=== PATIENT | male | born 1945 | race Caucasian/White ===

== ENCOUNTER → 2018-09-14 08:49 | Outpatient (CLI) | payer MEDICARE, SELFPAY ==
--- NOTE | 2018-09-14 | DI.MRI.S_ITS ---
PROCEDURE: MR PELIS WO/W CON INDICATIONS: PROSTATE CANCER TECHNIQUE: Noncontrast coronal T1 spin echo and STIR, sagittal T1 spin echo with fat saturation and STIR, axial T1 spin echo and T2 fast spin echo with fat saturation. After the administration of contrast, axial/sagittal/coronal T1 spin echo with fat saturation through the pelvis. COMPARISON: None. FINDINGS: Image quality: Excellent. Bones: The visualized bone marrow demonstrates normal signal on all sequences. The overlying cortex appears intact. No abnormal intraosseous enhancement. Soft tissues: No soft tissue masses are visualized. The scanned muscles demonstrate normal overall bulk and internal signal. Subcutaneous tissues appear normal as well. No abnormal soft tissue enhancement. The prostate is not enlarged. There is T1 signal heterogeneity within the periphery of the prostate transitional zone and peripheral zone, right greater than left, likely reflecting prostate biopsy through transrectal approach. No discrete prostatic mass lesion is identified. No adenopathy is found. Note is made of a moderate-sized fat containing right inguinal hernia, showing no sign of incarceration or strangulation. IMPRESSION: 1. The prostate gland is not enlarged and shows no discrete mass lesion. Presume T1 signal heterogeneity at several points along the periphery of the gland most likely representing biopsy sites. 2. No adenopathy found. No osseous metastatic disease seen. 3. Incidental finding of moderate sized fat containing right inguinal hernia, showing no sign of incarceration or strangulation. This has an axial dimension of approximately 3.7 cm and a craniocaudad dimension of 11.2 cm. Dictated by: Roberto Jimenez M.D. on 09/14/2018 at 15:25 Approved by: Roberto Jimenez M.D. on 09/14/2018 at 15:28
--- NOTE | 2018-09-14 | DI.NM.S_ITS ---
PROCEDURE: NM BONE SCAN WHOLE BODY RADIOPHARMACEUTICAL: 20.9 mCi Tc-99m MDP IV. INDICATIONS: PROSTATE CANCER TECHNIQUE: Delayed whole-body scintigrams were obtained approximately 3-4 hours after intravenous injection of radiotracer. Anterior and posterior views were acquired from vertex to feet. Additional left and right oblique views of the pelvis were obtained. COMPARISON: None. FINDINGS: No areas of relative intense radiotracer uptake identified that would be suspicious for metastatic disease. There is increased radiotracer uptake identified in the shoulders bilaterally, the cervical spine, the thoracic spine, the lumbar spine, the knees bilaterally, the ankles bilaterally in the mid feet bilaterally compatible with osteoarthritis. No areas of photopenia identified in the osseous skeleton. No abnormal soft tissue uptake. Activity in the kidneys is normal and symmetric. IMPRESSION: No evidence of osseous metastatic disease. Dictated by: Maria Elena Navarro MD, PhD on 09/14/2018 at 13:46 Approved by: Maria Elena Navarro MD, PhD on 09/14/2018 at 14:00
== END ==
PROVIDERS: PCP Family Medicine; Visit Provider Family Medicine
DX: C61 Malignant neoplasm of prostate (principal); K40.90 Unilateral inguinal hernia, without obstruction or gangrene, not specified as recurrent
CPT/HCPCS: 72197; 78306; A9503

== ENCOUNTER 2018-10-25 10:32 | Outpatient (RCR) | payer MEDICARE, SELFPAY ==
--- NOTE | 2018-10-26 11:09 | PT.OIE ---
Current Diagnoses Malignant neoplasm of prostate (10/25/18) Provider Visit Care Team Role Provider Type Jerica Munoz MD Primary Care Provider Physician Specialty: Family Practice Address: [place], [address] Email: Alhaji Deshpande MD Attending Provider Non-Staff Specialty: Urology Address: [address] [facility], [id number], [place], [address] Email: Physical Therapy Initial Evaluation PT-OP-A Visit Information Start: 10/25/18 10:44 Freq: Status: Active Protocol: Document 10/26/18 10:36 [facility] (Rec: 10/26/18 11:09 [facility] [email or web address]) Out-Patient Physical Therapy Visit Information Visit Information Visit Type Initial Evaluation Visit Note Eliel is a 73 year old male referred to PT for pre-op pelvic floor strengthening. He will undergo a robotic prostatectomy with Dr Gokul Deshpande at [facility] 11/30/18. Visit Start Time 10:45 Visit Stop Time 11:30 Total Visit Minutes 45 Visit Number 1 Evaluation Information Evaluation Date 10/25/18 PT-OP-B Current Condition Start: 10/25/18 10:44 Freq: Status: Active Protocol: Document 10/26/18 10:36 [facility] (Rec: 10/26/18 11:09 [facility] [email or web address]) Current Condition History of Current Condition Onset Date 10/13/18 Current Complaints urinary urgency, prostate cancer History of Current Condition 73 year old male diagnosed with prostate cancer and undergoing a robotic prostatectomy 11/30/18. He has been referred to PT for pre- op strengthening of his pelvic floor. He does note he has been trying to lose weight prior to the surgery and has lost approximately 10 lbs with a walking program. He also has been motivated to begin pelvic floor strengthening on his own and feels that his urgency symptoms have improved with strengthening. Treatment Goals Patient/Caregiver Goals Goals include to patient education on a home program for pelvic floor strengthening Current Functional Impairments (Reported) Functional Limitations- ADL's sleep disrupted as he is voiding 3 times per night PT-OP-F Manual Assessment Start: 10/25/18 10:44 Freq: Status: Active Protocol: Document 10/26/18 10:36 [facility] (Rec: 10/26/18 11:09 [facility] [email or web address]) Manual Assessments Other Manual Assessments Other Manual Assessments weakness of the transverse abdominal wall with valsalva with transferring from supine to sidelying PT-OP-I Pelvic Floor Start: 10/25/18 10:44 Freq: Status: Active Protocol: Document 10/26/18 10:36 [facility] (Rec: 10/26/18 11:09 [facility] [email or web address]) Pelvic Floor Assessment Contraction Ability Voluntary Contraction Moderate Voluntary Relaxation Moderate Muscle Endurance (Seconds) 5 Comments Pelvic Floor Comments needed tactile cuing for pelvic floor isolation without external gluteal or abdominal guarding. Difficulty with endurance holds of the pelvic floor musculature PT-OP-T Assessment and Plan Start: 10/25/18 10:44 Freq: Status: Active Protocol: Document 10/26/18 10:36 [facility] (Rec: 10/26/18 11:09 [facility] [email or web address]) Physical Therapy Assessment Rehab Potential Rehabilitation Potential Excellent Evaluation Complexity Number of Personal Factors/Comorbidities 0 Number of Body Systems Impaired 1-2 Clinical Presentation at Evaluation Stable Impairments Impairments Strength Tone Other Impairments prostate cancer with urinary urgency Goals One Impairment Guidance with home exercise program for pre-op pelvic floor strengthening Short Term Goal (STG) Eliel is instructed in a home program for pelvic floor strengthening and hip rotation exercises that he is able to do both pre and post operatively. STG Duration 10/25/18 Assessment Summary Assessment Eliel is a 73 year old male referred to Physical Therapy today for pre operative pelvic floor strengthening. He is scheduled for surgery November 30 at [facility]. He reports he has been walking and trying to lose weight prior to his surgery. He reports he has lost 10 lbs. He has also been motivated to begin pelvic floor strengthening on his own prior to this appointment and he notes that his urgency symptoms have decreased with the exercises. He seeks guidance with pre operative exercises and exercises he can do post surgery. He lives on [facility] and wishes to make this appointment his only one due to logistics of travel. With examination today Eliel is able to facilitate his pelvic floor in supine, standing, and sitting positions. He does have weakness of his abdominal wall and we discussed lower abdominal bracing prior to transitional movements to help decrease valsalva and downward pressure on the bladder. I had him pratice transitions such as rolling from supine to sidelying and sit to stand with pelvic floor and transverse abdominal recruitment. He was also given hip rotation exercises for improved facilitation of the pelvic floor. Eliel demonstrated good awareness of these exercises. He was given handouts with pictures of his home program and he felt comfortable with 1 PT visit. If he feels he needs any additional guidance on pelvic floor strengthening prior to surgery or post surgery I am happy to assist him. Physical Therapy Plan Frequency and Duration Frequency of Treatment 1 visit only Duration of Treatment 1 visit only Plan of Care Start Date 10/25/18 Plan of Care End Date 10/25/18 Therapeutic Interventions Therapeutic Interventions Home Exercise Program Discharge Physical Therapy Discharge Reasons Patient Request Discharge Comments The patient requested one visit for preoperative strengthening due to logistics of traveling from [facility]
--- NOTE | 2018-10-26 11:11 | PT.OPPOC ---
Current Diagnoses Malignant neoplasm of prostate (10/25/18) Provider Visit Care Team Role Provider Type Jerica Munoz MD Primary Care Provider Physician Specialty: Family Practice Address: [place], [address] Email: Alhaji Deshpande MD Attending Provider Non-Staff Specialty: Urology Address: [address] [facility], [id number], [place], [address] Email: Plan Of Care PT-OP-T Assessment and Plan Start: 10/25/18 10:44 Freq: Status: Active Protocol: Document 10/26/18 10:36 [facility] (Rec: 10/26/18 11:09 [facility] [email or web address]) Physical Therapy Assessment Rehab Potential Rehabilitation Potential Excellent Evaluation Complexity Number of Personal Factors/Comorbidities 0 Number of Body Systems Impaired 1-2 Clinical Presentation at Evaluation Stable Impairments Impairments Strength Tone Other Impairments prostate cancer with urinary urgency Goals One Impairment Guidance with home exercise program for pre-op pelvic floor strengthening Short Term Goal (STG) Eliel is instructed in a home program for pelvic floor strengthening and hip rotation exercises that he is able to do both pre and post operatively. STG Duration 10/25/18 Assessment Summary Assessment Eliel is a 73 year old male referred to Physical Therapy today for pre operative pelvic floor strengthening. He is scheduled for surgery November 30 at [facility]. He reports he has been walking and trying to lose weight prior to his surgery. He reports he has lost 10 lbs. He has also been motivated to begin pelvic floor strengthening on his own prior to this appointment and he notes that his urgency symptoms have decreased with the exercises. He seeks guidance with pre operative exercises and exercises he can do post surgery. He lives on [facility] and wishes to make this appointment his only one due to logistics of travel. With examination today Eliel is able to facilitate his pelvic floor in supine, standing, and sitting positions. He does have weakness of his abdominal wall and we discussed lower abdominal bracing prior to transitional movements to help decrease valsalva and downward pressure on the bladder. I had him practice transitions such as rolling from supine to sidelying and sit to stand with pelvic floor and transverse abdominal recruitment. He was also given hip rotation exercises for improved facilitation of the pelvic floor. Eliel demonstrated good awareness of these exercises. He was given handouts with pictures of his home program and he felt comfortable with 1 PT visit. If he feels he needs any additional guidance on pelvic floor strengthening prior to surgery or post surgery I am happy to assist him. Physical Therapy Plan Frequency and Duration Frequency of Treatment 1 visit only Duration of Treatment 1 visit only Plan of Care Start Date 10/25/18 Plan of Care End Date 10/25/18 Therapeutic Interventions Therapeutic Interventions Home Exercise Program Discharge Physical Therapy Discharge Reasons Patient Request Discharge Comments The patient requested one visit for preoperative strengthening due to logistics of traveling from [facility] Plan of Care Dates Plan of Care Start Date 10/25/18 Plan of Care End Date 10/25/18 Please Sign and Return: I have reviewed this Plan of Care and certify that the skilled therapy services above are required to meet the patient?s needs. Physician Signature Date Printed Name and Credentials Clinical Instructor Signature Printed Name and Credentials
== END 2018-10-25 13:14 | disposition home or self-care (01) ==
LOC: PHYS 10:32
PROVIDERS: PCP Family Medicine; Visit Provider Urology
DX: C61 Malignant neoplasm of prostate (principal)
CPT/HCPCS: 97110; 97161

== ENCOUNTER → 2019-04-11 08:34 | Outpatient (CLI) | payer MEDICARE, SELFPAY ==
--- NOTE | 2019-04-11 | DI.MRI.S_ITS ---
PROCEDURE: MR LUMBAR SPINE WO CON INDICATIONS: Low back pain TECHNIQUE: Noncontrast sagittal T1 spin echo and T2 fast echo, sagittal STIR, axial T1 and T2 fast spin echo through the lumbar spine. In cases with scoliosis, additional coronal T2 fast spin echo may be performed. COMPARISON: [facility], MR, L-SPINE WITHOUT CONTRAST, 06/26/2014, 9:48. FINDINGS: Image quality: Excellent. Alignment and Curvature: Straightening of the normal lordotic curvature. Trace anterolisthesis of L3 on L4. Trace anterolisthesis of L2 on L3. Bone Marrow: No acute fracture. Multilevel degenerative endplate sclerosis and spurring. Diffuse facet arthropathy. Spinal Cord: Conus medullaris terminates at the L1 level. Visualized cord demonstrates normal signal and size. Paraspinous Soft Tissues: No paravertebral masses. Prominent dorsal epidural lipomatosis L1-L2: Large central and left paracentral disc protrusion/extrusion with inferior migration of disc material to the level of the mid L2 vertebral body. Moderate central canal narrowing at the level of L1-L2, and mild left-sided canal narrowing at the mid L2 vertebral body level, which is new since the prior study. Effacement of the left lateral recess which is new. Moderate left foraminal narrowing. Mild right foraminal narrowing. Foraminal narrowing has progressed on both sides. L2-L3: Moderate to severe canal narrowing, which is accentuated by dorsal epidural lipomatosis. Partial effacement of both lateral recesses with bilaterally symmetric appearance. No interval change. Mild right foraminal narrowing, and moderate left foraminal stenosis with nerve root compression, no interval change L3-L4: Severe central canal narrowing. Partial effacement of both lateral recesses with bilaterally symmetric appearance. Moderate bilateral foraminal narrowing with nerve root compression although grossly unchanged L4-L5: Posterior annular fissure and severe canal stenosis which is contributed by dorsal epidural fat. Partial effacement of both lateral recesses with bilaterally symmetric appearance. Moderate bilateral foraminal narrowing with mild nerve root compression, grossly unchanged L5-S1: Large central disc protrusion and bilateral facet arthropathy. Moderate canal narrowing. Partial effacement of both lateral recesses with asymmetric appearance, left greater than right. Moderate bilateral foraminal stenoses with mild nerve root compression, grossly unchanged IMPRESSION: Multilevel spondylosis and facet arthropathy, with the most progression seen at the L1-L2 level where there is large left paracentral disc protrusion and extrusion with inferior migration of disc material to the level of the mid L2 vertebral body. Interval development of partial effacement of the left L1-L2 lateral recess (raising possibility of impingement of the descending left L2 nerve root), and bilateral progressive L1-L2 foraminal narrowing as above. Prominent diffuse dorsal epidural lipomatosis as before. Dictated by: Anibal Bacon M.D. on 04/11/2019 at 10:00 Approved by: Anibal Bacon M.D. on 04/11/2019 at 10:11
== END ==
PROVIDERS: PCP Family Medicine; Visit Provider Physical Medicine & Rehabilitation
DX: M47.816 Spondylosis without myelopathy or radiculopathy, lumbar region (principal); M47.817 Spondylosis without myelopathy or radiculopathy, lumbosacral region; M51.26 Other intervertebral disc displacement, lumbar region; M51.27 Other intervertebral disc displacement, lumbosacral region; M48.061 Spinal stenosis, lumbar region without neurogenic claudication; M48.07 Spinal stenosis, lumbosacral region; E88.2 Lipomatosis, not elsewhere classified
CPT/HCPCS: 72148

== ENCOUNTER 2020-10-03 14:26 | Emergency (ER) | payer MEDICARE, SELFPAY ==
[2020-10-03] VITALS (7 sets, daily range): BP systolic 112–135; BP diastolic 60–76; PULSE 57–63; RESP 14–22; TEMP 36.8; O2SAT 96–99; BMI 26.1
--- NOTE | 2020-10-03 17:24 | PC.NURSE ---
Patient reports approx 7 weeks of loose stools, negative C0Diff testing x3. Patient has had approx 18lb weight loss, decrease appetite. Patient reports upwards of 10 episodes of loose stools some days. Pain resides in left lower quadrant. Denies fevers, denies nausea.
[2020-10-03 17:32] LABS: INR 1.2 (0.9-1.3); Prothrombin Time 13.8 SECONDS (10.1-12.7)
[2020-10-03 17:35] LABS: PTT Partial Thromboplastin Tim 30 SECONDS (26.4-36.2)
[2020-10-03 17:37] LABS: Add Manual Diff / Slide Review NO; Alanine Aminotransferase 28 IU/L (<50); Albumin 3.8 g/dL (3.5-5.0); Alkaline Phosphatase 109 U/L (38-126); Aspartate Aminotransferase 35 IU/L (17-59); BUN Creatinine Ratio 22.3 (6-22); Basophils Absolute Auto 200 /uL (0-100); Basophils Percent Auto 1.1 % (0-2); Bilirubin Total 0.4 mg/dL (0.2-1.3); Blood Urea Nitrogen 25 mg/dL (9-20); Calcium 9.6 mg/dL (8.4-10.2); Carbon Dioxide 30 mmol/L (22-32); Chloride 99 mmol/L (98-107); Eosinophils Absolute Auto 100 /uL (0-450); Eosinophils Percent Auto 0.9 % (2-4); Estimated Glomerular Filt Rate > 60.0 mL/min (>60); Globulin 3.7 g/dL (1.7-4.1); Glucose 100 mg/dL (80-110); HEMOLYSIS < 15 (0-50); Hematocrit 45.9 % (41-53); Hemoglobin 15.1 g/dL (13.5-17.5); Lipase 134 U/L (23-300); Lymphocytes Absolute Auto 1700 /uL (1100-4500); Lymphocytes Percent Auto 11.9 % (25-40); Mean Corpuscular Hemoglobin 31.7 PG (26-34); Monocytes Absolute Auto 2000 /uL (0-900); Monocytes Percent Auto 13.9 % (3-14); Neutrophils Absolute Auto 10400 /uL (1500-7000); Neutrophils Percent Auto 72.2 % (50-75); Platelet Count 346 X10^3/uL (150-400); Potassium 3.6 mmol/L (3.4-5.1); Red Blood Cell Count 4.78 X10^6/uL (4.5-5.9); Red Cell Distribution Width 13.1 % (11.6-14.8); Sodium 138 mmol/L (137-145); Total Protein 7.5 g/dL (6.3-8.2); White Blood Cell Count 14.4 X10^3/uL (4.5-11.0)
[2020-10-03 17:38] LABS: Creatine Kinase 41 U/L (55-170); Lactate (Lactic Acid) 0.7 mmol/L (0.7-2.1)
[2020-10-03 17:49] LABS: Troponin I < 0.012 ng/mL (0.01-0.034)
[2020-10-03 18:50] LABS: Bacteria Urine None Seen; RBC Urine None Seen (0-5/HPF)
[2020-10-03 18:51] LABS: Appearance Urine UA CLEAR; Bilirubin Urine UA NEGATIVE (NEGATIVE); Color Urine UA YELLOW; Glucose Urine UA NEGATIVE (Negative); Ketones Urine UA NEGATIVE (NEGATIVE); Leukocyte Esterase Urine UA NEGATIVE (NEGATIVE); Nitrite Urine UA NEGATIVE (Negative); Occult Blood Urine UA NEGATIVE (Negative); Protein Urine UA 1+ (Negative); Specific Gravity Urine UA 1.025 (1.000-1.035); Urobilinogen Urine UA 0.2 E.U./dL (0.2); pH Urine UA 5.5 (4.5-8.0)
[2020-10-03 18:59] LABS: Culture Indicated Urine Cult Not Indicated; Hyaline Casts Urine 1-5/LPF; Mucus Urine 1+ (Negative); Squamous Epithelial Cell Urine 0-1 /HPF (0-5/HPF); WBC Urine 0-1/HPF (0-5/HPF)
[2020-10-03 19:07] LABS: Neutrophils Absolute Manual 10224 /uL (3000-5900); Smudge Cells 1+; Total Cells Counted 100
--- NOTE | 2020-10-03 19:12 | ED.RECABL ---
HPI - Recheck/Abnormal Lab/Rx General Chief Complaint: Recheck/Abnormal Lab/Rx Stated Complaint: sent by physician, Abnormal Labs? Time Seen by Provider: 10/03/20 16:05 Source: patient Mode of arrival: Ambulatory Limitations: no limitations History of Present Illness HPI narrative: 75-year-old male who was sent to the emergency department by his primary doctor for labs and a CT scan. This is for workup of diarrhea that he has had for several weeks/months. Patient states that he has been seen by his primary doctor multiple times for these symptoms. He has also had issues with abnormal lab tests which I can gather seems to be elevated white blood cell count. He has been tested for C diff 3 times in the past and all have been negative. He states that his primary doctor has talked with a retirement benefits specialist who [place] so he was instructed to come to the emergency department for these test and also have a CT scan. Related Data Allergies Allergy/AdvReac Type Severity Reaction Status Date / Time erythromycin base Allergy Intermediate TEARS UP Verified 10/03/20 14:40 [ERYTHROMYCIN BASE] MY GUT gabapentin AdvReac Verified 10/03/20 14:40 Review of Systems Constitutional Constitutional: Denies fever(s) and Denies headache(s) ENT Ears, Nose, Mouth, and Throat: Denies headache(s) Cardiovascular Cardiovascular: Denies chest pain and Denies dyspnea Respiratory Respiratory: Denies dyspnea Gastrointestinal Gastrointestinal: Denies abdominal pain, Denies melena, Denies hematochezia, Reports diarrhea, Denies nausea and Denies vomiting Genitourinary Genitourinary: Denies dysuria Genitourinary: Denies dysuria Musculoskeletal Musculoskeletal: Denies arthralgias and Denies myalgias Integumentary/Breasts Skin/Breast: Denies rash Neurologic Neurologic: Denies behavioral changes and Denies headache(s) Psychiatric Psychiatric: Denies behavioral changes Hematologic/Lymphatic On Anticoagulants: No Allergic/Immunologic Allergic/Immunologic: Denies urticaria Patient History Medical History Gout (11/14/14) Hypertension (11/14/14) Social History Smoking Status: Never smoker Smoking Status: Never smoker Substance Use Type: does not use Exam Initial Vital Signs Initial Vital Signs: Vital Signs Temperature 98.2 F 10/03/20 14:40 Pulse Rate 60 10/03/20 14:40 Respiratory Rate 18 10/03/20 14:40 Blood Pressure 135/67 10/03/20 14:40 Pulse Oximetry 96 10/03/20 14:40 Const General: cooperative and comfortable Limitations: mental status not altered HENMT Head: normal to inspection and normocephalic Resp Effort & Inspection: normal respiratory effort Auscultation: clear to auscultation bilaterally Cardio Rate: regular rate Rhythm: regular rhythm GI Inspection: non-distended Palpation: soft and No tender Skin Lesions: no lesions Rashes: no rashes Neuro General: patient alert and patient awake Cognition: normal cognition Speech: speech normal Extrem General: capillary refill normal Psych Appearance: grossly normal and well kempt Scores GCS Enrique coma scale eye opening: Spontaneous [place] coma scale verbal response: Orientated Enrique coma scale motor response: Obey commands [place] coma scale total score: 15 Course Orders Ordered: ED Orders 10/03/20 15:35 EKG-12 Lead Stat 10/03/20 17:15 Complete Blood Count AUTO DIFF Stat Comprehensive Metabolic Panel Stat Lactate (Lactic Acid) Stat Lipase Stat Partial Thromboplastin Time Stat Procalcitonin Stat Prothrombin Time INR Stat Troponin & CK Cardiac Panel Stat 10/03/20 18:22 BCR-ABL1 CML/ALL PCR Urgent JAK2 Screen with Reflexes Urgent 10/03/20 18:30 Urinalysis and Microscopic Stat 10/03/20 19:13 CT abdomen pelvis w con Stat Vital Signs Vital signs: Vital Signs - 8 hr 10/03/20 17:35 10/03/20 18:00 10/03/20 18:01 Pulse Rate 59 L 59 L 59 L Respiratory Rate Blood Pressure 112/60 Pulse Oximetry 98 98 97 10/03/20 18:30 10/03/20 19:54 10/03/20 20:26 Pulse Rate 57 L 63 63 Respiratory Rate 14 22 Blood Pressure 131/63 113/76 Pulse Oximetry 97 99 MDM - Recheck/Abnormal Lab/Rx Lab Data Attestation: I reviewed the patient's lab results. Result diagrams: 10/03/20 17:15 10/03/20 17:15 Labs: Lab Results 10/03/20 10/03/20 10/03/20 Range/Units 17:15 17:15 17:15 WBC 14.4 H (4.5-11.0) X10^3/uL RBC 4.78 (4.5-5.9) X10^6/uL Hgb 15.1 (13.5-17.5) g/dL Hct 45.9 (41-53) % MCV 96.0 (80-100) fL MCH 31.7 (26-34) PG MCHC 33.0 (30-36) % RDW 13.1 (11.6-14.8) % Plt Count 346 (150-400) X10^3/uL Neut % (Auto) 72.2 (50-75) % Lymph % (Auto) 11.9 L (25-40) % [place] % (Auto) 13.9 (3-14) % Eos % (Auto) 0.9 L (2-4) % Baso % (Auto) 1.1 (0-2) % Neut # (Auto) 54513 H (6127-6470) /uL Lymph # (Auto) 1700 (6973-5372) /uL [place] # (Auto) 2000 H (0-900) /uL Eos # (Auto) 100 (0-450) /uL Baso # (Auto) 200 H (0-100) /uL Total Counted 100 Seg Neutrophils % 71.0 H (38-70) % Lymphocytes % (Manual) 13.0 L (25-45) % Atypical Lymphs % 1.0 H ( - 0) % Monocytes % (Manual) 12.0 H (2-11) % Eosinophils % (Manual) 1.0 L (2-4) % Basophils % (Manual) 2.0 H (0-1) % Neutrophils # (Manual) 49689 H (2930-7472) /uL Smudge Cells 1+ H RBC Morphology See below PT 13.8 H (10.1-12.7) SECONDS INR 1.2 (0.9-1.3) APTT 30 (26.4-36.2) SECONDS Sodium 138 (137-145) mmol/L Potassium 3.6 (3.4-5.1) mmol/L Chloride 99 (98-107) mmol/L Carbon Dioxide 30 (22-32) mmol/L BUN 25 H (9-20) mg/dL Creatinine 1.12 (0.66-1.25) mg/dL Estimated GFR > 60.0 (>60) mL/min BUN/Creatinine Ratio 22.3 H (6-22) Glucose 100 (80-110) mg/dL Lactate (0.7-2.1) mmol/L Calcium 9.6 (8.4-10.2) mg/dL Total Bilirubin 0.4 (0.2-1.3) mg/dL AST 35 (17-59) IU/L ALT 28 (<50) IU/L Alkaline Phosphatase 109 (38-126) U/L Total Creatine Kinase (55-170) U/L CK-MB (CK-2) CK-MB (CK-2) Rel Index Troponin I (0.01-0.034) ng/mL Total Protein 7.5 (6.3-8.2) g/dL Albumin 3.8 (3.5-5.0) g/dL Globulin 3.7 (1.7-4.1) g/dL Albumin/Globulin Ratio 1.0 (1.0-2.8) Lipase 134 (23-300) U/L Procalcitonin (<0.5) ng/mL Urine Color Urine Appearance Urine pH (4.5-8.0) Ur Specific [place] (1.000-1.035) Urine Protein (Negative) Urine Glucose (UA) (Negative) g/dL Urine Ketones (NEGATIVE) Urine Occult Blood (Negative) Urine Nitrate (Negative) Urine Bilirubin (NEGATIVE) Urine Urobilinogen (0.2) E.U./dL Ur Leukocyte Esterase (NEGATIVE) Urine RBC (0-5/HPF) Urine WBC (0-5/HPF) Ur Squamous Epith Cells (0-5/HPF) Urine Bacteria (None) Hyaline Casts (None) Urine Mucus (Negative) Ur Culture Indicated? 10/03/20 10/03/20 10/03/20 Range/Units 17:15 17:15 18:30 WBC (4.5-11.0) X10^3/uL RBC (4.5-5.9) X10^6/uL Hgb (13.5-17.5) g/dL Hct (41-53) % MCV (80-100) fL MCH (26-34) PG MCHC (30-36) % RDW (11.6-14.8) % Plt Count (150-400) X10^3/uL Neut % (Auto) (50-75) % Lymph % (Auto) (25-40) % [place] % (Auto) (3-14) % Eos % (Auto) (2-4) % Baso % (Auto) (0-2) % Neut # (Auto) (6845-7494) /uL Lymph # (Auto) (0299-3038) /uL [place] # (Auto) (0-900) /uL Eos # (Auto) (0-450) /uL Baso # (Auto) (0-100) /uL Total Counted Seg Neutrophils % (38-70) % Lymphocytes % (Manual) (25-45) % Atypical Lymphs % ( - 0) % Monocytes % (Manual) (2-11) % Eosinophils % (Manual) (2-4) % Basophils % (Manual) (0-1) % Neutrophils # (Manual) (5748-5437) /uL [place] Cells RBC Morphology PT (10.1-12.7) SECONDS INR (0.9-1.3) APTT (26.4-36.2) SECONDS Sodium (137-145) mmol/L Potassium (3.4-5.1) mmol/L Chloride (98-107) mmol/L Carbon Dioxide (22-32) mmol/L BUN (9-20) mg/dL Creatinine (0.66-1.25) mg/dL Estimated GFR (>60) mL/min BUN/Creatinine Ratio (6-22) Glucose (80-110) mg/dL Lactate 0.7 (0.7-2.1) mmol/L Calcium (8.4-10.2) mg/dL Total Bilirubin (0.2-1.3) mg/dL AST (17-59) IU/L ALT (<50) IU/L Alkaline Phosphatase (38-126) U/L Total Creatine Kinase 41 L (55-170) U/L CK-MB (CK-2) TNP CK-MB (CK-2) Rel Index TNP Troponin I < 0.012 (0.01-0.034) ng/mL Total Protein (6.3-8.2) g/dL Albumin (3.5-5.0) g/dL Globulin (1.7-4.1) g/dL Albumin/Globulin Ratio (1.0-2.8) Lipase (23-300) U/L Procalcitonin 0.10 (<0.5) ng/mL Urine Color Yellow Urine Appearance Clear Urine pH 5.5 (4.5-8.0) Ur Specific [place] 1.025 (1.000-1.035) Urine Protein 1+ H (Negative) Urine Glucose (UA) Negative (Negative) g/dL Urine Ketones Negative (NEGATIVE) Urine Occult Blood Negative (Negative) Urine Nitrate Negative (Negative) Urine Bilirubin Negative (NEGATIVE) Urine Urobilinogen 0.2 (0.2) E.U./dL Ur Leukocyte Esterase Negative (NEGATIVE) Urine RBC None seen (0-5/HPF) Urine WBC 0-1/hpf (0-5/HPF) Ur Squamous Epith Cells 0-1 /hpf (0-5/HPF) Urine Bacteria None seen (None) Hyaline Casts 1-5/lpf (None) Urine Mucus 1+ H (Negative) Ur Culture Indicated? Cult not indicated Imaging Data CT scan - abdomen/pelvis: Radiologist's Impression: [address] Scan ReportSigned Patient: Eliel Ford AMR#: [id number]: 4Acct:[id number]/Sex: 75 / MDate of Service: 10/03/20Loc: EDAccession Number: [id number] Procedure: CT abdomen pelvis w con Ordering Provider: Fahad Kang D.O. PROCEDURE: CT ABDOMEN PELVIS W CON INDICATIONS: Seven weeks of diarrhea with abdominal pain TECHNIQUE: After the administration of intravenous contrast, 5 mm thick sections acquired from the diaphragm to the symphysis. 5 mm coronal and sagittal reformats were acquired. For radiation dose reduction, the following was used: automated exposure control, adjustment of mA and/or kV according to patient size. COMPARISON: None. FINDINGS: Image quality: Excellent. ABDOMEN: Lung bases: Lung bases are clear. Heart size is normal. Solid organs: Liver is normal in size. Hepatic steatosis is present. 5 mm low-attenuation focus is present in the anterior right hepatic lobe series 2, image 23. Gallbladder is unremarkable. Biliary system is non dilated. Pancreas enhances normally. Spleen is normal in size and enhancement. 12 mm left adrenal nodule.. Kidneys demonstrate normal size and enhancement, without hydronephrosis. Peritoneum and bowel: Bowel loops are nonobstructive. There is long segment masslike thickening within the sigmoid colon extending into the distal descending colon. Focal luminal mass appears most prominent within the descending colon measuring 4.8 cm AP x 3.6 cm transverse on series 2, image 59. There are scattered subcentimeter adjacent lymph nodes the largest measuring approximately 6 mm. Minimal pericolonic inflammatory change is identified. The sigmoid masslike appearance is in direct approximation to the superior bladder. There is no gross obstruction proximally. Nodes and vessels: No retroperitoneal or mesenteric adenopathy by size criteria. Aorta and inferior vena cava are normal in size. Miscellaneous: No ventral hernias. PELVIS: Genitourinary: Bladder wall thickness is normal. Miscellaneous: Prominent fat containing right inguinal hernia is present. Bones: No suspicious bony lesions. No vertebral body compression fractures. IMPRESSION: 1. Focal descending sigmoid mass with long segment masslike appearance extending into the sigmoid colon. There is minimal surrounding inflammatory change. There appear to be multiple adjacent subcentimeter lymph nodes. While overall appearance could be reflective of infection or inflammation, it is highly suspicious for malignancy. Further evaluation with colonoscopy is recommended. 2. Nonspecific left adrenal nodule. 3. 5 mm low attenuation hepatic focus too small to definitively characterize. While this could represent a cyst, other etiology such as hemangioma or potentially metastatic disease given appearance of the sigmoid cannot be excluded. Continued evaluation of this region is recommended. Dictated by: Salma Solorzano M.D. on 10/03/2020 at 19:44 Approved by: Salma Solorzano M.D. on 10/03/2020 at 19:51 ECG Data Attestation: I personally reviewed and interpreted this ECG as follows: Prior ECG tracings: not available for review Interpretation: Sinus bradycardia Ventricular rate of 59 Normal axis Normal QRS Normal QTC No ST T wave changes MDM Narrative Medical decision making narrative: Patient's lab tests were ordered per the request by his primary provider. He does have a leukocytosis. There were some toes that were pending at the time of his discharge and he was instructed that he needed to follow-up with his primary doctor regarding the results of these. He expressed understanding of this. The CT scan was ordered per the request of his primary doctor as well. There were findings no case did on the sigmoid colon that are concerning for malignancy. There is no indication for any antibiotics today. He has a follow-up for a colonoscopy in approximately 2 weeks from now. He has a phone consultation next Tuesday as a preop for this with his ld teacher. I informed him to let his ld teacher know of the findings of the CT scan today. He was given a copy of the CT scan on a CD. No indication for emergent surgical intervention. He was informed to contact his primary doctor on Tuesday as well. He expressed understanding and agreement. Discharge Plan Departure Patient Disposition: Home Clinical Impression: Leukocytosis, Diarrhea, Colonic mass Instructions: Diarrhea (Alternative Therapy) Activity Restrictions/Additional Instructions: The findings on the CT scan today are concerning however you do appear to have follow-up already scheduled with the ld teacher. I recommend that you keep these appointments. Contact them on Tuesday to let them know of the findings of the CT scan today. Also contact your primary provider for follow-up. Return to the emergency department for any new or worsening symptoms Referrals: Jerica Munoz MD [Primary Care Provider] -
[2020-10-10 12:14] LABS: Interpretation Negative (.)
== END 2020-10-03 20:27 | disposition home or self-care (01) ==
PROVIDERS: Emergency Medicine; Emergency Provider Emergency Medicine; PCP Family Medicine
DX: K63.89 Other specified diseases of intestine (principal); D72.829 Elevated white blood cell count, unspecified; R19.7 Diarrhea, unspecified; R00.1 Bradycardia, unspecified
CPT/HCPCS: 36415; 74177; 80053; 81001; 81206; 81207; 81270; 82550; 83605; 83690; 84145; 84484; 85007; 85025; 85610; 85730; 93005; 93010; 99284

== ENCOUNTER → 2021-04-27 09:02 | Outpatient (CLI) | payer MEDICARE, SELFPAY ==
[2021-04-27 20:20] LABS: COVID19 - ORCAS (NP or Nasal) Negative (Negative)
== END ==
PROVIDERS: PCP Family Medicine; Visit Provider Family Medicine
DX: Z20.822 Contact with and (suspected) exposure to COVID-19 (principal)
CPT/HCPCS: C9803; U0003

== ENCOUNTER 2022-04-06 18:38 | Observation (INO) | payer MEDICARE, SELFPAY ==
[2022-04-06 18:58] VITALS: BP 155/75; PULSE 90; RESP 16; TEMP 35.7; O2SAT 93; BMI 24.8
[2022-04-06 19:21] LABS: Add Manual Diff / Slide Review NO; Basophils Absolute Auto 100 /uL (0-100); Basophils Percent Auto 0.4 % (0-2); Eosinophils Absolute Auto 300 /uL (0-450); Eosinophils Percent Auto 1.7 % (2-4); Hematocrit 44.9 % (41-53); Lymphocytes Absolute Auto 1800 /uL (1100-4500); Lymphocytes Percent Auto 11.2 % (25-40); Mean Corpuscular HGB Conc 33.3 % (30-36); Mean Corpuscular Hemoglobin 30.9 PG (26-34); Mean Corpuscular Volume 92.7 fL (80-100); Monocytes Absolute Auto 1700 /uL (0-900); Monocytes Percent Auto 10.8 % (3-14); Neutrophils Absolute Auto 11900 /uL (1500-7000); Neutrophils Percent Auto 75.9 % (50-75); Platelet Count 264 X10^3/uL (150-400); Red Blood Cell Count 4.85 X10^6/uL (4.5-5.9); Red Cell Distribution Width 12.8 % (11.6-14.8); White Blood Cell Count 15.7 X10^3/uL (4.5-11.0)
[2022-04-06 19:35] LABS: Alanine Aminotransferase 16 IU/L (<50); Albumin 3.9 g/dL (3.5-5.0); Alkaline Phosphatase 100 U/L (38-126); Aspartate Aminotransferase 23 IU/L (17-59); BUN Creatinine Ratio 23.3 (6-22); Bilirubin Total 0.6 mg/dL (0.2-1.3); Blood Urea Nitrogen 17 mg/dL (9-20); Calcium 9.5 mg/dL (8.4-10.2); Carbon Dioxide 25 mmol/L (22-32); Chloride 104 mmol/L (98-107); Estimated Glomerular Filt Rate > 60 mL/min (>60); Glucose 91 mg/dL (80-110); HEMOLYSIS < 15 (0-50); Lipase 78 U/L (23-300); Potassium 3.9 mmol/L (3.4-5.1); Sodium 139 mmol/L (137-145); Total Protein 7.9 g/dL (6.3-8.2)
--- NOTE | 2022-04-06 21:09 | DI.CT.S_ITS ---
PROCEDURE: CT ABDOMEN PELVIS W CON INDICATIONS: abdominal pain, sent by PCP TECHNIQUE: After the administration of IV contrast, axial sections were acquired from the lung bases to the pubic symphysis. Coronal and sagittal reformats were performed. For radiation dose reduction, the following was used: automated exposure control, adjustment of mA and/or kV according to patient size. COMPARISON: [facility], CT, CT ABDOMEN PELVIS W CON, 10/03/2020, 19:19. FINDINGS: Image quality: Excellent. Lung bases: There is atelectasis and scarring in the lung bases. Heart: Heart is normal in size. There is a small hiatal hernia. ABDOMEN: Liver: No mass lesion. Gallbladder: Within normal limits without calcified gallstones. Biliary ducts: No biliary ductal dilatation. Pancreas: Unremarkable. Spleen: Normal in size. Adrenal Glands: There is mild nodular thickening of the left adrenal gland which appears unchanged from the prior study. Kidneys and Ureters: No hydronephrosis. Stomach and Bowel: Stomach and small bowel are normal in caliber and wall thickness. The appendix is normal in appearance. There is colonic diverticulosis with associated diverticular and extensive segmental colonic wall thickening in the sigmoid colon consistent with acute diverticulitis. There is an associated pericolonic irregular collection medial and superior to the sigmoid colon containing extraluminal gas and small amount of fluid consistent with a diverticular abscess. This measures approximately 5.9 cm in anteroposterior dimension by 4.1 cm in craniocaudal dimension by 3.4 cm in transverse dimension. Along the lateral aspect of the sigmoid colon, there is also a fistula extending between the proximal and more distal sigmoid colon. There is also a suspected fistula extending from the sigmoid colon to the bladder dome. Peritoneum: No abnormal intraperitoneal fluid. No free air. Ventral Wall: No hernia. Abdominal Nodes: No retroperitoneal or mesenteric adenopathy by size criteria. Vessels: Aorta and inferior vena cava are normal in size. PELVIS: Pelvic Organs: Unremarkable. Bladder: There is mild concentric bladder wall thickening with adjacent fat stranding. No intraluminal gas within the bladder. Pelvic Nodes: No enlarged lymph nodes. Miscellaneous: No inguinal hernias are seen. Bones: Visualized osseous structures demonstrate no suspicious focal lesions. IMPRESSION: 1. Findings consistent with perforated diverticulitis in the sigmoid colon with an associated diverticular abscess along the medial aspect of the sigmoid colon. There is also a linear fistula along the proximal and more distal segments of the sigmoid colon laterally. Findings discussed with Dr. Rangel on 04/06/2022 at 10:46 p.m.. 2. 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 No intraluminal gas is demonstrated within the bladder but there is bladder wall thickening. Recommend correlation with urinalysis. 3. Given the degree of wall thickening in the sigmoid colon, an underlying mass cannot be excluded. Recommend further evaluation with colonoscopy if one has not been performed following the prior study. Dictated by: Arthur Mancini M.D. on 04/06/2022 at 22:41 Approved by: Arthur Mancini M.D. on 04/06/2022 at 22:52
[2022-04-06 22:51] VITALS: BP 161/72; PULSE 63; RESP 20; O2SAT 97
[2022-04-06] MEDS: PIPERACILLIN/TAZO 4.5 GM in SODIUM CHLORIDE 0.9% 100 ML IV (23:00)
--- NOTE | 2022-04-06 23:04 | ED_ITS ---
HPI - Abdominal Pain General Chief Complaint: Abdominal Pain Stated Complaint: ABD PAIN Time Seen by Provider: 04/06/22 22:47 Mode of arrival: Family Vehicle History of Present Illness HPI narrative: 77-year-old male nonsmoker with history of hypertension, prior TIA and history of diverticulitis presents at the request of his primary care provider for evaluation of worsening lower abdominal pain over the past few days nausea and generally feeling unwell. He last ate at about 6:00 p.m.. He is had nausea but denies any vomiting. His pain is worse when he moves and improves with rest and he is had frequent loose stools. He denies any chest pain or shortness of breath. He is not dizzy nor weak or lightheaded. Related Data Home Medications Medication Instructions Recorded Confirmed albuterol sulfate 90 mcg/actuation 2 puff inhalation Q4-6H PRN 10/13/20 04/07/22 aerosol inhaler Congestion allopurinol 300 mg tablet 300 mg PO DAILY 10/13/20 04/07/22 amlodipine 10 mg tablet 10 mg PO DAILY 10/13/20 04/07/22 bupropion HCl 300 mg 24 hr tablet, 300 mg PO QAM 10/13/20 04/07/22 extended release carvedilol phosphate 40 mg 40 mg PO DAILY 10/13/20 04/07/22 capsule,[id number] multiphase propranolol 120 mg capsule,24 120 mg PO DAILY 10/13/20 04/07/22 hr,extended release aspirin 325 mg tablet 325 mg PO DAILY 12/29/20 04/07/22 ibuprofen 100 mg tablet 200 mg PO DAILY 12/29/20 04/07/22 potassium chloride 10 mEq 10 meq PO DAILY 12/29/20 04/07/22 capsule,extended release Allergies Allergy/AdvReac Type Severity Reaction Status Date / Time erythromycin base Allergy Intermediate TEARS UP Verified 04/06/22 19:04 [ERYTHROMYCIN BASE] MY GUT gabapentin AdvReac Verified 04/06/22 19:04 Review of Systems Review of Systems Narrative: GENERAL: Denies chills, fatigue, malaise, fever, sweats. HEENT: Denies sinus pain, ear pain, sore throat, difficulty swallowing, dizziness. RESPIRATORY: Denies dyspnea, cough, wheezing, hemoptysis, sputum. CARDIOVASCULAR: Denies chest pain, palpitations, orthopnea, edema, GASTROINTESTINAL: See HPI : Denies dysuria, frequency, incontinence, hematuria, urinary retention. MUSCULOSKELETAL: denies weakness, joint pain, or bony pain SKIN: Denies rash, skin lesions, or other NEUROLOGIC: Denies weakness, headache, numbness, change in speech, confusion, seizures, incoordination. PSYCHIATRIC: No concerning psychosocial issues. 12 point review of systems is negative except for those stated above Patient History Medical History Gout (11/14/14) Hypertension (11/14/14) Social History Smoking Status: Never smoker Smoking Status: Never smoker alcohol intake frequency: 3 or more drinks per day Substance Use Type: does not use Exam Narrative Exam Narrative: GENERAL: [77] year old patient appears stated age. Well-developed patient, in mild distress. Complaining of lower abdominal pain HEAD: Atraumatic. Normocephalic. EYES: Pupils equal round and reactive. Extraocular motions intact. No scleral icterus. No injection or drainage. ENT: Nose without bleeding, purulent drainage. Throat without erythema, tonsillar hypertrophy or exudate. Airway patent. NECK: Trachea midline. Non tender CARDIOVASCULAR: Regular rate and rhythm without murmurs, gallops, or rubs. RESPIRATORY: Clear to auscultation. Breath sounds equal bilaterally. No wheezes, rales, or rhonchi. GASTROINTESTINAL: Abdomen soft, tender across the lower abdomen with localized peritonitis, nondistended. Bowel sounds decreased EXTREMITIES: No edema or joint tenderness. BACK: Nontender without deformity or crepitance. No flank tenderness. NEURO: AOx3. SKIN: No rash or erythema of visible areas Initial Vital Signs Initial Vital Signs: Vital Signs Temperature 96.2 F L 04/06/22 18:58 Pulse Rate 90 04/06/22 18:58 Respiratory Rate 16 04/06/22 18:58 Blood Pressure 155/75 H 04/06/22 18:58 Pulse Oximetry 93 04/06/22 18:58 Oxygen Delivery Method 04/06/22 18:58 Course Orders Ordered: ED Orders 04/06/22 19:04 EKG-12 Lead Stat 04/06/22 19:10 Complete Blood Count AUTO DIFF Stat Comprehensive Metabolic Panel Stat Lipase Stat 04/06/22 21:09 CT abdomen pelvis w con Stat 04/06/22 22:53 COVID19 -Nasal RAPID/Pre-Proc Stat Albuterol (Albuterol 2.5 Mg/3 Ml Neb (Adult)) 2.5 mg INH Q4H PRN PRN Reason: SOB, WHEEZING Hydromorphone HCl (Hydromorphone 0.5 Mg Inj) 0.5 mg IV Q4H PRN PRN Reason: Breakthrough pain 4-10) Sodium Chloride (Normal Saline 0.9%) 1,000 mls @ 60 mls/hr IV CONT ANIRUDH Last Admin: 04/07/22 02:18 Dose: 60 mls/hr Documented By: EMILY Piperacillin Sod/Tazobactam (Sod 3.375 gm/ Sodium Chloride) 100 mls @ 25 mls/hr IV Q8H [facility] Naloxone HCl (Naloxone 0.4 Mg/Ml Vial) 0.1 mg IV Q2MIN PRN PRN Reason: Opiate Reversal Ondansetron HCl (Ondansetron 4 Mg/2 Ml Inj) 4 mg IV Q4HR PRN PRN Reason: Nausea And Vomiting Discontinued Medications Albuterol (Albuterol Hfa Mdi 60 Puff/8 Gm Inhaler) 2 puff INH Q4-6H PRN PRN Reason: Shortness Of Breath Or Wheezing Piperacillin Sod/Tazobactam (Sod 4.5 gm/ Sodium Chloride) 100 mls @ 200 mls/hr IV NOW ONE Stop: 04/06/22 22:48 Last Infusion: 04/06/22 23:53 Dose: 0 mls/hr Documented By: Admin: 04/06/22 23:00 Dose: 200 mls/hr Documented By: BRETT Piperacillin Sod/Tazobactam (Sod 4.5 gm/ Sodium Chloride) 100 mls @ 25 mls/hr IV Q8H [facility] Ondansetron HCl (Ondansetron 4 Mg/2 Ml Inj) 4 mg IV NOW ONE Stop: 04/06/22 21:41 Last Admin: 04/07/22 01:07 Dose: Not Given Documented By: BRETT Consultations Consultation #1: Discussed with on-call surgery, recommends admission with fluids, pain control and antiemetics as well as Zosyn with admission to hospitalist Vital Signs Vital signs: Vital Signs - 8 hr 04/06/22 18:58 04/06/22 22:51 04/07/22 00:26 Temperature 96.2 F L Pulse Rate 90 63 66 Respiratory Rate 16 20 20 Blood Pressure 155/75 H 161/72 H 147/59 H Pulse Oximetry 93 97 99 Oxygen Delivery Method Room Air Room Air Room Air Oxygen Flow Rate 04/07/22 00:05 Temperature 98.1 F Pulse Rate 66 Respiratory Rate 18 Blood Pressure 140/67 Pulse Oximetry 94 Oxygen Delivery Method Oxygen Flow Rate 0 MDM - Abdominal Pain Lab Data Result diagrams: 04/06/22 19:10 04/06/22 19:10 Labs: Lab Results 04/06/22 04/06/22 04/06/22 Range/Units 19:10 19:10 19:10 WBC 15.7 H (4.5-11.0) X10^3/uL RBC 4.85 (4.5-5.9) X10^6/uL Hgb 15.0 (13.5-17.5) g/dL Hct 44.9 (41-53) % MCV 92.7 (80-100) fL MCH 30.9 (26-34) PG MCHC 33.3 (30-36) % RDW 12.8 (11.6-14.8) % Plt Count 264 (150-400) X10^3/uL Neut % (Auto) 75.9 H (50-75) % Lymph % (Auto) 11.2 L (25-40) % [place] % (Auto) 10.8 (3-14) % Eos % (Auto) 1.7 L (2-4) % Baso % (Auto) 0.4 (0-2) % Neut # (Auto) 68185 H (1359-5658) /uL Lymph # (Auto) 1800 (0021-3085) /uL [place] # (Auto) 1700 H (0-900) /uL Eos # (Auto) 300 (0-450) /uL Baso # (Auto) 100 (0-100) /uL Sodium 139 (137-145) mmol/L Potassium 3.9 (3.4-5.1) mmol/L Chloride 104 (98-107) mmol/L Carbon Dioxide 25 (22-32) mmol/L BUN 17 (9-20) mg/dL Creatinine 0.73 (0.66-1.25) mg/dL Estimated GFR > 60 (>60) mL/min BUN/Creatinine Ratio 23.3 H (6-22) Glucose 91 (80-110) mg/dL Lactate 0.7 (0.7-2.1) mmol/L Calcium 9.5 (8.4-10.2) mg/dL Total Bilirubin 0.6 (0.2-1.3) mg/dL AST 23 (17-59) IU/L ALT 16 (<50) IU/L Alkaline Phosphatase 100 (38-126) U/L C-Reactive Protein (<1.0) mg/dL Total Protein 7.9 (6.3-8.2) g/dL Albumin 3.9 (3.5-5.0) g/dL Globulin 4.0 (1.7-4.1) g/dL Albumin/Globulin Ratio 1.0 (1.0-2.8) Lipase 78 (23-300) U/L Procalcitonin (<0.5) ng/mL SARS-CoV-2 (PCR) (Negative) 04/06/22 04/06/22 04/06/22 Range/Units 19:10 19:10 22:53 WBC (4.5-11.0) X10^3/uL RBC (4.5-5.9) X10^6/uL Hgb (13.5-17.5) g/dL Hct (41-53) % MCV (80-100) fL MCH (26-34) PG MCHC (30-36) % RDW (11.6-14.8) % Plt Count (150-400) X10^3/uL Neut % (Auto) (50-75) % Lymph % (Auto) (25-40) % [place] % (Auto) (3-14) % Eos % (Auto) (2-4) % Baso % (Auto) (0-2) % Neut # (Auto) (0938-6756) /uL Lymph # (Auto) (6348-4283) /uL [place] # (Auto) (0-900) /uL Eos # (Auto) (0-450) /uL Baso # (Auto) (0-100) /uL Sodium (137-145) mmol/L Potassium (3.4-5.1) mmol/L Chloride (98-107) mmol/L Carbon Dioxide (22-32) mmol/L BUN (9-20) mg/dL Creatinine (0.66-1.25) mg/dL Estimated GFR (>60) mL/min BUN/Creatinine Ratio (6-22) Glucose (80-110) mg/dL Lactate (0.7-2.1) mmol/L Calcium (8.4-10.2) mg/dL Total Bilirubin (0.2-1.3) mg/dL AST (17-59) IU/L ALT (<50) IU/L Alkaline Phosphatase (38-126) U/L C-Reactive Protein 8.4 H (<1.0) mg/dL Total Protein (6.3-8.2) g/dL Albumin (3.5-5.0) g/dL Globulin (1.7-4.1) g/dL Albumin/Globulin Ratio (1.0-2.8) Lipase (23-300) U/L Procalcitonin 0.06 (<0.5) ng/mL SARS-CoV-2 (PCR) Negative (Negative) Imaging Data CT scan - abdomen/pelvis: Radiologist's Impression: [place] [address] CT Scan Report Signed Patient: Eliel Ford MR#: [id number] : 1945 Acct:[id number] Age/Sex: 77 / M Date of Service: 04/06/22 Loc: ED Accession Number: [id number] ?? Procedure: CT abdomen pelvis w con Ordering Provider: Hilario Rangel D.O. PROCEDURE:? CT ABDOMEN PELVIS W CON ? INDICATIONS:? abdominal pain, sent by PCP ? TECHNIQUE:? After the administration of IV contrast, axial sections were acquired from the lung bases to the pubic symphysis.? Coronal and sagittal reformats were performed.? For radiation dose reduction, the following was used:? automated exposure control, adjustment of mA and/or kV according to patient size. ? COMPARISON:? Merged With [facility], CT, CT ABDOMEN PELVIS W CON, 10/03/2020, 19:19. ? FINDINGS:? Image quality:? Excellent.? ? Lung bases:? There is atelectasis and scarring in the lung bases.? ? Heart:? Heart is normal in size.? There is a small hiatal hernia. ? ? ABDOMEN: Liver:? No mass lesion. Gallbladder:? Within normal limits without calcified gallstones.? ? Biliary ducts:? No biliary ductal dilatation.? ? Pancreas:? Unremarkable.? ? Spleen:? Normal in size.? ? Adrenal Glands:? There is mild nodular thickening of the left adrenal gland which appears unchanged from the prior study. Kidneys and Ureters:? No hydronephrosis.? ? ? Stomach and Bowel:? Stomach and small bowel are normal in caliber and wall thickness.? The appendix is normal in appearance.? There is colonic diverticulosis with associated diverticular and extensive segmental colonic wall thickening in the sigmoid colon consistent with acute diverticulitis.? There is an associated pericolonic irregular collection medial and superior to the sigmoid colon containing extraluminal gas and small amount of fluid consistent with a diverticular abscess.? This measures approximately 5.9 cm in anteroposterior dimension by 4.1 cm in craniocaudal dimension by 3.4 cm in transverse dimension.? Along the lateral aspect of the sigmoid colon, there is also a fistula extending between the proximal and more distal sigmoid colon.? There is also a suspected fistula extending from the sigmoid colon to the bladder dome. Peritoneum:? No abnormal intraperitoneal fluid.? No free air.? ? Ventral Wall: ? No hernia.? Abdominal Nodes:? No retroperitoneal or mesenteric adenopathy by size criteria.? Vessels:? Aorta and inferior vena cava are normal in size.? ? PELVIS: Pelvic Organs:? Unremarkable.? ? Bladder:? There is mild concentric bladder wall thickening with adjacent fat stranding.? No intraluminal gas within the bladder.? ? Pelvic Nodes: No enlarged lymph nodes.? Miscellaneous: No inguinal hernias are seen. ? ? ? Bones:? Visualized osseous structures demonstrate no suspicious focal lesions. ? IMPRESSION:? ? 1. Findings consistent with perforated diverticulitis in the sigmoid colon with an associated diverticular abscess along the medial aspect of the sigmoid colon.? There is also a linear fistula along the proximal and more distal segments of the sigmoid colon laterally. ? Findings discussed with Dr. Rangel on 04/06/2022 at 10:46 p.m.. ? 2. 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 No intraluminal gas is demonstrated within the bladder but there is bladder wall thickening.? Recommend correlation with urinalysis. ? 3. Given the degree of wall thickening in the sigmoid colon, an underlying mass cannot be excluded.? Recommend further evaluation with colonoscopy if one has not been performed following the prior study.? ? ? Dictated by: Arthur Mancini M.D. on 04/06/2022 at 22:41 ? ? Approved by: Arthur Mancini M.D. on 04/06/2022 at 22:52 ? Discharge Plan Departure Patient Disposition: Admitted As Inpatient Clinical Impression: Diverticulitis of large intestine with perforation and abscess Admit Date/Time: 04/07/22 00:52 Admit Provider: Lyndsay Castillo
[2022-04-06 23:15] LABS: COVID19 -Nasal RAPID Negative (Negative)
[2022-04-07] VITALS (12 sets, daily range): BP systolic 130–150; BP diastolic 52–67; PULSE 54–66; RESP 16–20; TEMP 36.1–36.7; O2SAT 94–99; BMI 25.4
[2022-04-07 01:39] LABS: Lactate (Lactic Acid) 0.7 mmol/L (0.7-2.1)
[2022-04-07 01:41] LABS: C-Reactive Protein Quant 8.4 mg/dL (<1.0)
[2022-04-07] MEDS: SODIUM CHLORIDE 0.9% 1,000 ML 60 ML IV ×2 (02:18→19:33)
[2022-04-07 02:31] LABS: Procalcitonin 0.06 ng/mL (<0.5)
--- NOTE | 2022-04-07 02:34 | PM.HP.1 ---
History of Present Illness History of Present Illness Date Patient Seen: 04/07/22 Time Patient Seen: 01:03 Chief complaint: ABD PAIN Narrative: Eliel Ford is a 77-year-old male with a history hypertension, prior TIA, diverticulitis, gout depression, and prostate cancer who was sent to the emergency department from his PCP as the patient has been experiencing worsening lower abdominal pain and nausea for several weeks that has increased in intensity in the last few days, abd pain and nausea comes and goes, has been having frequent diarrhea, he generally feels unwell, last stated 6:00 p.m. on 04/06, the pain is persistent it worsens with movement and improves with rest he has had frequent loose stools but denies blood in his stools, intermittent nausea with no vomiting. Patient denies chest pain, shortness of breath, any recent illness, upper respiratory symptoms, does note that he has chronic issues with difficulty with urination secondary to prostate cancer, fever, body aches, chills, patient denies any previous abdominal surgeries,constipation, denies blood in his urine, or coughing up of blood, changes in medication, recent illness injury or trauma. Patient was examined in ED for admit-at that time the patient was walking around the unit in no distress or discomfort, and denies current abdominal pain and nausea, he is experiencing some mild back discomfort he notes that this is chronic. Patient's vitals upon admit are stable temp 96.2?, BP 161/72, HR 63, R 20 O2 saturation 97% on room air. WBC 15.7 with a left shift neutrophils 11,900 mono 1700. The rest of the CBC & CMP are unremarkable. I personally reviewed patient's EKG sinus rhythm rate [address] SV complexes. CT abd: Showed perforated diverticulitis in the sigmoid colon with associated diverticuli abscess along the medial aspect of the sigmoid colon. Patient is being admitted for perforated diverticulitis and diverticular abscess. Patient History Medical History Depression Gout (11/14/14) Gout History of diverticulitis History of prostate cancer History of radiation therapy History of TIA (transient ischemic attack) Hypertension (11/14/14) Surgical History History of left knee surgery History of tonsillectomy Family & Social History Family History Mother Natural Father Hypertension [place] (myocardial infarction) Safety & Behavioral: Feels Safe in Current Yes, retired lives with partner. Environment Been Physically Hurt or No Threatened By a Person Tobacco & Substance use: Smoking Status Never smoker alcohol intake frequency 3 or more drinks per day Substance Use Type does not use Meds Home Medications and Allergies Home Medications Medication Instructions Recorded Confirmed Type albuterol sulfate 90 mcg/actuation 2 puff inhalation Q4-6H PRN 10/13/20 04/07/22 History aerosol inhaler Congestion allopurinol 300 mg tablet 300 mg PO DAILY 10/13/20 04/07/22 History amlodipine 10 mg tablet 10 mg PO DAILY 10/13/20 04/07/22 History bupropion HCl 300 mg 24 hr tablet, 300 mg PO QAM 10/13/20 04/07/22 History extended release carvedilol phosphate 40 mg 40 mg PO DAILY 10/13/20 04/07/22 History capsule,[id number] multiphase propranolol 120 mg capsule,24 120 mg PO DAILY 10/13/20 04/07/22 History hr,extended release aspirin 325 mg tablet 325 mg PO DAILY 12/29/20 04/07/22 History ibuprofen 100 mg tablet 200 mg PO DAILY 12/29/20 04/07/22 History potassium chloride 10 mEq 10 meq PO DAILY 12/29/20 04/07/22 History capsule,extended release Allergies Allergy/AdvReac Type Severity Reaction Status Date / Time erythromycin base Allergy Intermediate TEARS UP Verified 04/06/22 19:04 [ERYTHROMYCIN BASE] MY GUT gabapentin AdvReac Verified 04/06/22 19:04 Review of Systems Review of Systems Narrative: All 12 point systems reviewed with the patient and are negative except otherwise documented. Exam Vital Signs (past 8 hours): - 04/06/22 18:58 04/06/22 22:51 04/07/22 00:26 Temperature 96.2 F L Pulse Rate 90 63 66 Respiratory Rate 16 20 20 Blood Pressure 155/75 H 161/72 H 147/59 H Pulse Oximetry 93 97 99 Oxygen Delivery Method Room Air Room Air Room Air Oxygen Flow Rate 04/07/22 00:05 Temperature 98.1 F Pulse Rate 66 Respiratory Rate 18 Blood Pressure 140/67 Pulse Oximetry 94 Oxygen Delivery Method Oxygen Flow Rate 0 Oxygen Delivery Method Room Air Oxygen Flow Rate 0 Narrative Exam Narrative: GENERAL: [77] year old patient appears stated age. Well-developed patient, in no distress at this time. HEAD: Atraumatic. Normocephalic. EYES: Pupils equal round and reactive. Extraocular motions intact. No scleral icterus. No injection or drainage. ENT: Nose without bleeding, purulent drainage. Throat without erythema, tonsillar hypertrophy or exudate. Airway patent. NECK: Trachea midline. Non tender CARDIOVASCULAR: Regular rate and rhythm without murmurs, gallops, or rubs. RESPIRATORY: Clear to auscultation. Breath sounds equal bilaterally. No wheezes, rales, or rhonchi.? GASTROINTESTINAL: Abdomen soft, mild tenderness with palpation across the lower abdomen with localized peritonitis, nondistended.? Bowel sounds present in all 4 quadrants. EXTREMITIES: No edema or joint tenderness. BACK: Nontender without deformity or crepitance. No flank tenderness. NEURO: AOx3. SKIN: No rash or erythema of visible areas Objective Labs Result Diagrams: 04/06/22 19:10 04/06/22 19:10 Labs: Laboratory Results - last 24 hr 04/06/22 04/06/22 04/06/22 19:10 19:10 19:10 WBC 15.7 H RBC 4.85 Hgb 15.0 Hct 44.9 MCV 92.7 MCH 30.9 MCHC 33.3 RDW 12.8 Plt Count 264 Neut % (Auto) 75.9 H Lymph % (Auto) 11.2 L [place] % (Auto) 10.8 Eos % (Auto) 1.7 L Baso % (Auto) 0.4 Neut # (Auto) 61758 H Lymph # (Auto) 1800 [place] # (Auto) 1700 H Eos # (Auto) 300 Baso # (Auto) 100 Sodium 139 Potassium 3.9 Chloride 104 Carbon Dioxide 25 BUN 17 Creatinine 0.73 Estimated GFR > 60 BUN/Creatinine Ratio 23.3 H Glucose 91 Lactate 0.7 Calcium 9.5 Total Bilirubin 0.6 AST 23 ALT 16 Alkaline Phosphatase 100 C-Reactive Protein Total Protein 7.9 Albumin 3.9 Globulin 4.0 Albumin/Globulin Ratio 1.0 Lipase 78 Procalcitonin SARS-CoV-2 (PCR) 04/06/22 04/06/22 04/06/22 19:10 19:10 22:53 WBC RBC Hgb Hct MCV MCH MCHC RDW Plt Count Neut % (Auto) Lymph % (Auto) [place] % (Auto) Eos % (Auto) Baso % (Auto) Neut # (Auto) Lymph # (Auto) [place] # (Auto) Eos # (Auto) Baso # (Auto) Sodium Potassium Chloride Carbon Dioxide BUN Creatinine Estimated GFR BUN/Creatinine Ratio Glucose Lactate Calcium Total Bilirubin AST ALT Alkaline Phosphatase C-Reactive Protein 8.4 H Total Protein Albumin Globulin Albumin/Globulin Ratio Lipase Procalcitonin 0.06 SARS-CoV-2 (PCR) Negative Assessment & Plan Assessment & Plan narrative: Eliel Ford is a 77-year-old male with a history hypertension, prior TIA, diverticulitis, gout depression, and prostate cancer who was sent to the emergency department from his PCP as the patient has been experiencing worsening lower abdominal pain and nausea for several weeks that has increased in intensity in the last few days, patient admitted for perforated diverticulitis and diverticular abscess. 1. Acute on Chronic lower abdominal pain, secondary to perforated diverticulitis/ diverticular abscess, acute, with a history of diverticulitis, present on admission -To be managed by Dr. Cuenca -Dr. Cuenca reviewed patient's chart in ED and will consult tomorrow -CT abd/Pelvis:? perforated diverticulitis in the sigmoid colon with an associated diverticular abscess along the medial aspect of the sigmoid colon, and a linear fistula along the proximal and more distal segments of the sigmoid colon laterally. 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 Given the degree of wall thickening in the sigmoid colon, an underlying mass cannot be excluded. -NPO -IV Dilaudid and Zofran for pain and antiemetic management. Tylenol Supp PRN -NS at 60 cc/HR -Zosyn -monitor CBC and CMP, ordered procalcitonin, CRP, sed rate, lactate,stool culutures, U/A 2. Hypertension, essential, present on admission -Hold meds while NPO -continue later: amlodipine, carvedilol, lisinopril -while NPO hydralazine 10 mg q.6 hours as needed for SBP> 160/DBP> 100 3. History of prior TIA, chronic, present on admission -stable no interventions at this time 4. Depression with anxiety, chronic, present on admission -continue later after NPO - proponlol, sertraline and bupropion 5. Asthma, chronic, present on admission -continue albuterol inhaler Code status:Full Surrogate decision maker: Sonia Beard partner/ Soniya Ponce Daughter COVID PCR:Negative DVT/VTE prophylaxis:No med due to possible surg, SCD only Disposition: Patient admitted for observation expected length of stay less than 2 midnights. I have utilized all available immediate resources to obtain, update, or review the patient's current medications. I confirmed that the patient's advanced care plan is present, Code status is documented and/or surrogate decision maker is listed in the patient's medical record. Time Spent With Patient Critical Care time: I spent a total of [] minutes of critical care time on this patient's care today; this time is exclusive of procedural time.
[2022-04-07 03:26] LABS: Appearance Urine UA CLEAR; Bilirubin Urine UA NEGATIVE (NEGATIVE); Color Urine UA YELLOW; Glucose Urine UA NEGATIVE (Negative); Ketones Urine UA 1+ (NEGATIVE); Leukocyte Esterase Urine UA NEGATIVE (NEGATIVE); Nitrite Urine UA NEGATIVE (Negative); Occult Blood Urine UA NEGATIVE (Negative); Protein Urine UA 1+ (Negative); Urobilinogen Urine UA 0.2 E.U./dL (0.2)
[2022-04-07 04:07] LABS: Bacteria Urine None Seen; Culture Indicated Urine Cult Not Indicated; RBC Urine 0-1/HPF (0-5/HPF); WBC Urine None Seen (0-5/HPF)
[2022-04-07] MEDS: PIPERACILLIN/TAZO 3.375 GM in SODIUM CHLORIDE 0.9% 100 ML IV ×3 (04:37→19:33)
[2022-04-07 06:14] LABS: INR 1.2 (0.9-1.3)
[2022-04-07 06:16] LABS: Add Manual Diff / Slide Review NO; Basophils Absolute Auto 100 /uL (0-100); Basophils Percent Auto 0.8 % (0-2); Eosinophils Absolute Auto 400 /uL (0-450); Eosinophils Percent Auto 4.7 % (2-4); Hematocrit 38.8 % (41-53); Hemoglobin 13.2 g/dL (13.5-17.5); Lymphocytes Absolute Auto 1700 /uL (1100-4500); Lymphocytes Percent Auto 18.3 % (25-40); Mean Corpuscular HGB Conc 34.1 % (30-36); Mean Corpuscular Hemoglobin 31.4 PG (26-34); Mean Corpuscular Volume 92.2 fL (80-100); Monocytes Absolute Auto 1300 /uL (0-900); Monocytes Percent Auto 14.5 % (3-14); Neutrophils Absolute Auto 5600 /uL (1500-7000); Neutrophils Percent Auto 61.7 % (50-75); Platelet Count 220 X10^3/uL (150-400); Red Blood Cell Count 4.21 X10^6/uL (4.5-5.9); Red Cell Distribution Width 13.1 % (11.6-14.8)
[2022-04-07 06:17] LABS: PTT Partial Thromboplastin Tim 32 SECONDS (26-36)
--- NOTE | 2022-04-07 06:18 | PC.NURSE ---
New admit from ED. Care of patient from . AAOX4, denies pain, able to answer questions for admission. Has been SB-SR 58-64. Voiding via urinal. Patient reports frequent fall at home resulting in left forearm skin tear. Bed alarm on. Plan is to have surgery consult today.
[2022-04-07 06:24] LABS: BUN Creatinine Ratio 18.8 (6-22); Blood Urea Nitrogen 15 mg/dL (9-20); Calcium 8.5 mg/dL (8.4-10.2); Carbon Dioxide 25 mmol/L (22-32); Chloride 105 mmol/L (98-107); Estimated Glomerular Filt Rate > 60 mL/min (>60); Glucose 80 mg/dL (80-110); HEMOLYSIS < 15 (0-50); Magnesium 1.9 mg/dL (1.6-2.3); Potassium 3.8 mmol/L (3.4-5.1); Sodium 138 mmol/L (137-145)
[2022-04-07 07:00] LABS: Erythrocyte Sedimentation Rate 31 MM/HR (0-15)
--- NOTE | 2022-04-07 09:06 | CM.DANOTE ---
DCP: Case received, EMR reviewed and met with patient. Introduced self and role. Was able to obtain information regarding patient's baseline activity level at home prior to hospitalization. DCP assessment completed with information currently available. Patient is a 77 year old male who admitted early this morning to the care of the hospitalist team. PCP: Dr. Layton/Dr. Villalobos Payer: confirmed: Medicare/[employer]. Patient came to the hospital via private vehicle secondary to having increased abdominal pain with nausea. Patient has history of TIA, HTN, as well as diverticulits. Patient is currently diagnosed with acute on chronic lower abdominal pain secondary to perforated diverticulitis/diverticular abscess. Patient is to be having a surgical consult today. Met with patient in his room. He is alert and oriented, was sitting up in his bed. Confirmed that he resides on [facility] with his life partner, Lisa Beard. At his baseline he is independent. His primary care provider is Dr. Layton, but he also sees Dr. Mu Villalobos, for Dr. Layton can't bill insurances for her services. P: DCP to continue to follow. Plan is home when medically stable, uncertain at this time of surgery schedule. Daniella Smith RN/Die Repairer Forging Discharge Planning/Care Management Advanced directive, confirm from FAMILY Start: 04/07/22 03:03 Freq: Q24H Status: Active Protocol: Document 04/07/22 03:03 JS (Rec: 04/07/22 03:20 JS [id number]) Advance Directive, confirm on record Time 03:19 Person contacted patient Copy received No CM Discharge Assessment Start: 04/07/22 09:03 Freq: Status: Active Protocol: Document 04/07/22 09:04 (Rec: 04/07/22 09:05 [id number]) Discharge Planning Assessment Assigned Obstetric Anaesthetist Daniella Smith RN/Die Repairer Forging Advance Directives? Yes Advance Directives on File No History Provided By Patient,Medical Record Prior Living Arrangements House Household Members significant other Type of transporation used prior to Drives own vehicle admit Independent with ADL's Yes Is patient alert and oriented? Yes Caregiver for Another No Barriers to Discharge No Discharge Plan Home Transportation Arrangement Life Partner Referrals Initiated None needed Whiteboard Updated in Patient Room with Yes name and ext. # of Obstetric Anaesthetist Review Status In Process Next Review Type Continued Stay Review Document 04/07/22 09:06 (Rec: 04/07/22 09:06 [id number]) Discharge Planning Assessment Assigned Obstetric Anaesthetist Daniella Smith RN/Die Repairer [employer]ging Advance Directives? Yes Advance Directives on File No History Provided By Patient,Medical Record Prior Living Arrangements House Household Members significant other Type of transporation used prior to Drives own vehicle admit Independent with ADL's Yes Is patient alert and oriented? Yes Caregiver for Another No Barriers to Discharge No Discharge Plan Home Transportation Arrangement Life Partner Referrals Initiated None needed Whiteboard Updated in Patient Room with Yes name and ext. # of Obstetric Anaesthetist Review Status In Process Next Review Type Continued Stay Review
--- NOTE | 2022-04-07 10:52 | PM.CALLCOV.1 ---
Call Coverage Note Note Date of Patient Contact: 04/07/22 Time of Patient Contact: 10:52 Narrative of Care Provided: Full consult note to follow Given his prior abdominal surgery sigmoid resection would be complex and at high risk of morbidity resulting in permanent colostomy. Will trial clear liquids and continue abx
--- NOTE | 2022-04-07 15:01 | P.CONS_ITS ---
History of Present Illness Consult details Date Patient Seen: 04/07/22 Time Patient Seen: 15:01 Chief complaint: ABD PAIN Narrative: Eliel is a 77-year-old man is admitted to the hospital with complicated diverticulitis. He developed lower abdominal pain and diarrhea was evaluated at the [facility] Emergency Room and diagnosed with acute diverticulitis and associated 4 cm abscess. He has had multiple episodes of diverticulitis that have been managed non operatively. Currently his abdominal pain is minimal and significantly improved since admission. 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 Per his account, urologist told him colon was adherent to the bladder the prostate and the pelvic sidewall. After this aborted operation he went on to receive radiation to the prostate. Meds Home Medications and Allergies Home Medications Medication Instructions Recorded Confirmed Type albuterol sulfate 90 mcg/actuation 2 puff inhalation Q4-6H PRN 10/13/20 04/07/22 History aerosol inhaler Congestion allopurinol 300 mg tablet 300 mg PO DAILY 10/13/20 04/07/22 History amlodipine 10 mg tablet 10 mg PO DAILY 10/13/20 04/07/22 History bupropion HCl 300 mg 24 hr tablet, 300 mg PO QAM 10/13/20 04/07/22 History extended release carvedilol phosphate 40 mg 40 mg PO DAILY 10/13/20 04/07/22 History capsule,[id number] multiphase propranolol 120 mg capsule,24 120 mg PO DAILY 10/13/20 04/07/22 History hr,extended release aspirin 325 mg tablet 325 mg PO DAILY 12/29/20 04/07/22 History ibuprofen 100 mg tablet 200 mg PO DAILY 12/29/20 04/07/22 History potassium chloride 10 mEq 10 meq PO DAILY 12/29/20 04/07/22 History capsule,extended release Allergies Allergy/AdvReac Type Severity Reaction Status Date / Time erythromycin base Allergy Intermediate TEARS UP Verified 04/06/22 19:04 [ERYTHROMYCIN BASE] MY GUT gabapentin AdvReac Verified 04/06/22 19:04 Exam Vital Signs (past 8 hours): - 04/07/22 07:51 04/07/22 07:50 04/07/22 07:50 Temperature 97.4 F L Pulse Rate 62 Respiratory Rate 18 Blood Pressure 140/61 Pulse Oximetry 99 99 Oxygen Delivery Method Room Air Room Air Oxygen Flow Rate 0 04/07/22 11:27 04/07/22 11:53 Temperature 97.2 F L Pulse Rate 54 L Respiratory Rate 17 Blood Pressure 138/59 L Pulse Oximetry 99 97 Oxygen Delivery Method Room Air Oxygen Flow Rate 0 Oxygen Delivery Method Room Air Oxygen Flow Rate 0 Narrative Exam Narrative: General adult male alert oriented no acute distress Chest nonlabored respirations Abdomen soft minimally tender left lower quadrant. No peritonitis. Extremities warm well perfused Objective Labs Result Diagrams: 04/07/22 05:47 04/07/22 05:47 Labs: Laboratory Results - last 24 hr 04/06/22 04/06/22 04/06/22 19:10 19:10 19:10 WBC 15.7 H RBC 4.85 Hgb 15.0 Hct 44.9 MCV 92.7 MCH 30.9 MCHC 33.3 RDW 12.8 Plt Count 264 Neut % (Auto) 75.9 H Lymph % (Auto) 11.2 L [place] % (Auto) 10.8 Eos % (Auto) 1.7 L Baso % (Auto) 0.4 Neut # (Auto) 50207 H Lymph # (Auto) 1800 [place] # (Auto) 1700 H Eos # (Auto) 300 Baso # (Auto) 100 ESR PT INR APTT Sodium 139 Potassium 3.9 Chloride 104 Carbon Dioxide 25 BUN 17 Creatinine 0.73 Estimated GFR > 60 BUN/Creatinine Ratio 23.3 H Glucose 91 Lactate 0.7 Calcium 9.5 Magnesium Total Bilirubin 0.6 AST 23 ALT 16 Alkaline Phosphatase 100 C-Reactive Protein Total Protein 7.9 Albumin 3.9 Globulin 4.0 Albumin/Globulin Ratio 1.0 Lipase 78 Procalcitonin Urine Color Urine Appearance Urine pH Ur Specific [place] Urine Protein Urine Glucose (UA) Urine Ketones Urine Occult Blood Urine Nitrate Urine Bilirubin Urine Urobilinogen Ur Leukocyte Esterase Urine RBC Urine WBC Urine Bacteria Ur Culture Indicated? SARS-CoV-2 (PCR) 04/06/22 04/06/22 04/06/22 19:10 19:10 22:53 WBC RBC Hgb Hct MCV MCH MCHC RDW Plt Count Neut % (Auto) Lymph % (Auto) [place] % (Auto) Eos % (Auto) Baso % (Auto) Neut # (Auto) Lymph # (Auto) [place] # (Auto) Eos # (Auto) Baso # (Auto) ESR PT INR APTT Sodium Potassium Chloride Carbon Dioxide BUN Creatinine Estimated GFR BUN/Creatinine Ratio Glucose Lactate Calcium Magnesium Total Bilirubin AST ALT Alkaline Phosphatase C-Reactive Protein 8.4 H Total Protein Albumin Globulin Albumin/Globulin Ratio Lipase Procalcitonin 0.06 Urine Color Urine Appearance Urine pH Ur Specific [place] Urine Protein Urine Glucose (UA) Urine Ketones Urine Occult Blood Urine Nitrate Urine Bilirubin Urine Urobilinogen Ur Leukocyte Esterase Urine RBC Urine WBC Urine Bacteria Ur Culture Indicated? SARS-CoV-2 (PCR) Negative 04/07/22 04/07/22 04/07/22 03:15 05:47 05:47 WBC 9.0 RBC 4.21 L Hgb 13.2 L Hct 38.8 L MCV 92.2 MCH 31.4 MCHC 34.1 RDW 13.1 Plt Count 220 Neut % (Auto) 61.7 Lymph % (Auto) 18.3 L [place] % (Auto) 14.5 H Eos % (Auto) 4.7 H Baso % (Auto) 0.8 Neut # (Auto) 5600 Lymph # (Auto) 1700 [place] # (Auto) 1300 H Eos # (Auto) 400 Baso # (Auto) 100 ESR 31 H PT INR APTT Sodium Potassium Chloride Carbon Dioxide BUN Creatinine Estimated GFR BUN/Creatinine Ratio Glucose Lactate Calcium Magnesium Total Bilirubin AST ALT Alkaline Phosphatase C-Reactive Protein Total Protein Albumin Globulin Albumin/Globulin Ratio Lipase Procalcitonin Urine Color Yellow Urine Appearance Clear Urine pH 5.0 Ur Specific [place] 1.010 Urine Protein 1+ H Urine Glucose (UA) Negative Urine Ketones 1+ H Urine Occult Blood Negative Urine Nitrate Negative Urine Bilirubin Negative Urine Urobilinogen 0.2 Ur Leukocyte Esterase Negative Urine RBC 0-1/hpf Urine WBC None seen Urine Bacteria None seen Ur Culture Indicated? Cult not indicated SARS-CoV-2 (PCR) 04/07/22 04/07/22 05:47 05:47 WBC RBC Hgb Hct MCV MCH MCHC RDW Plt Count Neut % (Auto) Lymph % (Auto) [place] % (Auto) Eos % (Auto) Baso % (Auto) Neut # (Auto) Lymph # (Auto) [place] # (Auto) Eos # (Auto) Baso # (Auto) ESR PT 14.0 H INR 1.2 APTT 32 Sodium 138 Potassium 3.8 Chloride 105 Carbon Dioxide 25 BUN 15 Creatinine 0.80 Estimated GFR > 60 BUN/Creatinine Ratio 18.8 Glucose 80 Lactate Calcium 8.5 Magnesium 1.9 Total Bilirubin AST ALT Alkaline Phosphatase C-Reactive Protein Total Protein Albumin Globulin Albumin/Globulin Ratio Lipase Procalcitonin Urine Color Urine Appearance Urine pH Ur Specific [place] Urine Protein Urine Glucose (UA) Urine Ketones Urine Occult Blood Urine Nitrate Urine Bilirubin Urine Urobilinogen Ur Leukocyte Esterase Urine RBC Urine WBC Urine Bacteria Ur Culture Indicated? SARS-CoV-2 (PCR) [facility] Medical History Depression Gout (11/14/14) Gout History of diverticulitis History of prostate cancer History of radiation therapy History of TIA (transient ischemic attack) Hypertension (11/14/14) Surgical History History of left knee surgery History of tonsillectomy Family History Mother Natural Father Hypertension [place] (myocardial infarction) Social History household members: significant other Tobacco & Substance Use Smoking Status: Never smoker Assessment & Plan Assessment and plan (1) Diverticulitis of large intestine with perforation and abscess: Status: Acute Assessment & Plan narrative: 77-year-old man with acute complicated diverticulitis. He does not have peritonitis is nontoxic leukocytosis has resolved today. 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 I reviewed the CT abdomen pelvis personally as well as discussed with the on-call radiologist today and a despite the initial report this description of a 4 cm abscess there is no discrete organized fluid collection nor would be amenable to percutaneous drainage it appears to be more of a phlegmon at this time. I discussed with him that if surgery were necessary he would likely require a Brunilda's/ end colostomy which would likely be permanent and this would be a high risk operation given his history. At this time there is no acute indication for acute surgical intervention., instead I am recommending conservative therapy with IV antibiotics. Time Spent With Patient Critical Care time: I spent a total of [] minutes of critical care time on this patient's care today; this time is exclusive of procedural time.
[2022-04-08 03:00] VITALS: BP 137/59; PULSE 60; RESP 20; TEMP 36.4; O2SAT 98
[2022-04-08] MEDS: PIPERACILLIN/TAZO 3.375 GM in SODIUM CHLORIDE 0.9% 100 ML IV ×2 (03:25→11:28)
[2022-04-08 07:11] LABS: Add Manual Diff / Slide Review NO; Basophils Absolute Auto 100 /uL (0-100); Eosinophils Absolute Auto 500 /uL (0-450); Eosinophils Percent Auto 6.2 % (2-4); Hematocrit 38.1 % (41-53); Hemoglobin 12.8 g/dL (13.5-17.5); Lymphocytes Absolute Auto 1400 /uL (1100-4500); Lymphocytes Percent Auto 17.8 % (25-40); Mean Corpuscular HGB Conc 33.7 % (30-36); Mean Corpuscular Hemoglobin 30.9 PG (26-34); Mean Corpuscular Volume 91.6 fL (80-100); Monocytes Absolute Auto 1100 /uL (0-900); Monocytes Percent Auto 14.3 % (3-14); Neutrophils Absolute Auto 4700 /uL (1500-7000); Neutrophils Percent Auto 60.7 % (50-75); Platelet Count 232 X10^3/uL (150-400); Red Blood Cell Count 4.16 X10^6/uL (4.5-5.9); Red Cell Distribution Width 13.1 % (11.6-14.8); White Blood Cell Count 7.7 X10^3/uL (4.5-11.0)
[2022-04-08 07:20] VITALS: BP 156/71; PULSE 67; RESP 18; TEMP 36.7; O2SAT 99
[2022-04-08 08:00] VITALS: O2SAT 98
--- NOTE | 2022-04-08 08:56 | P.PN_ITS ---
Subjective Subjective Date Patient Seen: 04/08/22 Time Patient Seen: 08:56 Interval history: 77-year-old man with complicated diverticulitis. Continuing with conservative treatment IV antibiotics. Began liquid diet yesterday tolerated no abdominal pain today no fever. Exam Vital Signs (past 8 hours): - 04/08/22 03:00 04/08/22 03:00 04/08/22 08:00 Temperature 97.6 F Pulse Rate 60 Respiratory Rate 20 Blood Pressure 137/59 L Pulse Oximetry 98 98 Oxygen Delivery Method Room Air Room Air Oxygen Flow Rate 04/08/22 08:00 04/08/22 07:20 Temperature 98.0 F Pulse Rate 67 Respiratory Rate 18 Blood Pressure 156/71 H Pulse Oximetry 98 99 Oxygen Delivery Method Room Air Oxygen Flow Rate 0 Oxygen Delivery Method Room Air Oxygen Flow Rate 0 Narrative Exam Narrative: General adult male alert oriented no acute distress Abdomen soft nontender nondistended Objective Labs Result Diagrams: 04/08/22 06:31 04/07/22 05:47 Labs: Laboratory Results - last 24 hr 04/08/22 06:31 WBC 7.7 RBC 4.16 L Hgb 12.8 L Hct 38.1 L MCV 91.6 MCH 30.9 MCHC 33.7 RDW 13.1 Plt Count 232 Neut % (Auto) 60.7 Lymph % (Auto) 17.8 L [place] % (Auto) 14.3 H Eos % (Auto) 6.2 H Baso % (Auto) 1.0 Neut # (Auto) 4700 Lymph # (Auto) 1400 [place] # (Auto) 1100 H Eos # (Auto) 500 H Baso # (Auto) 100 PFSH Medical History Depression Gout (11/14/14) Gout History of diverticulitis History of prostate cancer History of radiation therapy History of TIA (transient ischemic attack) Hypertension (11/14/14) Surgical History History of left knee surgery History of tonsillectomy Family History Mother Natural Father Hypertension [place] (myocardial infarction) Social History household members: significant other Smoking Status: Never smoker Assessment & Plan Assessment and plan (1) Diverticulitis of large intestine with perforation and abscess: Status: Acute Assessment & Plan narrative: 77-year-old man with complicated diverticulitis contained perforation with phlegmon. Responding to IV antibiotic therapy. No leukocytosis no abdominal pain tolerating liquid diet. Advance to regular diet if tolerates appropriate for discharge home with p.o. antibiotic therapy. He has established Gastroenterology which he will follow-up with. Time Spent With Patient Critical Care time: I spent a total of [] minutes of critical care time on this patient's care today; this time is exclusive of procedural time.
[2022-04-08 10:58] VITALS: O2SAT 98
[2022-04-08 11:00] VITALS: BP 140/65; PULSE 63; RESP 18; TEMP 36.6; O2SAT 97
--- NOTE | 2022-04-08 12:50 | PC.NURSE ---
patient tolerated his general diet. no abd pain, no nausea.
--- NOTE | 2022-04-08 14:07 | P.DS_ITS ---
History of Present Illness History of Present Illness Date Patient Seen: 04/08/22 Chief complaint: ABD PAIN Narrative: Per Lyndsay Castillo, [facility]: Eliel Ford is a 77-year-old male with a history hypertension, prior TIA, diverticulitis, gout depression, and prostate cancer who was sent to the emergency department from his PCP as the patient has been experiencing worsening lower abdominal pain and nausea for several weeks that has increased in intensity in the last few days, abd pain and nausea comes and goes, has been having frequent diarrhea, he generally feels unwell, last stated 6:00 p.m. on 04/06, the pain is persistent it worsens with movement and improves with rest he has had frequent loose stools but denies blood in his stools, intermittent nausea with no vomiting. Patient denies chest pain, shortness of breath, any recent illness, upper respiratory symptoms, does note that he has chronic issues with difficulty with urination secondary to prostate cancer, fever, body aches, chills, patient denies any previous abdominal surgeries,constipation, denies blood in his urine, or coughing up of blood, changes in medication, recent illness injury or trauma. Patient was examined in ED for admit-at that time the patient was walking around the unit in no distress or discomfort, and denies current abdominal pain and nausea, he is experiencing some mild back discomfort he notes that this is chronic. Patient's vitals upon admit are stable temp 96.2?, BP 161/72, HR 63, R 20 O2 saturation 97% on room air. WBC 15.7 with a left shift neutrophils 11,900 mono 1700. The rest of the CBC & CMP are unremarkable. I personally reviewed patient's EKG sinus rhythm rate [address] SV complexes. CT abd: Showed perforated diverticulitis in the sigmoid colon with associated diverticuli abscess along the medial aspect of the sigmoid colon. Patient is being admitted for perforated diverticulitis and diverticular abscess. Discharge Providers Provider Date of admission: 04/07/22 00:52 Discharge Date: 04/08/22 Primary care physician: Mu Villalobos MD Consults: 04/07/22 01:04 Consult to Physician Routine Comment: Consulting Provider: Michael Cuenca Reason for consultation: diverticulitis, abcess Has provider been notified: Yes Discharge provider: J Luis Abdalla DO Summary Hospital Course Discharge Diagnosis: 1. Acute on Chronic lower abdominal pain, secondary to perforated diverticulitis/ diverticular abscess, acute, with a history of diverticulitis, present on admission 2. Hypertension, essential, present on admission 3. History of prior TIA, chronic, present on admission 4. Depression with anxiety, chronic, present on admission 5. Asthma, chronic, present on admission Hospital Course: Eliel Ford is a 77-year-old male with a history hypertension, prior TIA, diverticulitis, gout depression, and prostate cancer who was sent to the emergency department from his PCP as the patient has been experiencing worsening lower abdominal pain and nausea for several weeks that has increased in intensity in the last few days, patient admitted for perforated diverticulitis and diverticular abscess. The abscess was greater than 4cm. Surgery was consulted but recommended medical management with antibioitics given recent history of prostate mass. Patient also did not wish to have a colostomy bag and would prefer trial of antibiotic therapy. His diet was advanced, and that patient had minimal abdominal pain and was tolerating a regular diet at the time of discharge. Given his abscess, I discharged him with one month of antibiotics. I recommend he follow up outpatient with PCP, Surgery, and GI for further management. Exam Vital Signs (past 8 hours): - 04/08/22 08:00 04/08/22 08:00 04/08/22 07:20 Temperature 98.0 F Pulse Rate 67 Respiratory Rate 18 Blood Pressure 156/71 H Pulse Oximetry 98 99 Oxygen Delivery Method Room Air Room Air Oxygen Flow Rate 0 04/08/22 10:58 04/08/22 11:00 Temperature 97.9 F Pulse Rate 63 Respiratory Rate 18 Blood Pressure 140/65 Pulse Oximetry 98 97 Oxygen Delivery Method Room Air Oxygen Flow Rate 0 Oxygen Delivery Method Room Air Oxygen Flow Rate 0 Narrative Exam Narrative: GENERAL: [77] year old patient appears stated age. Well-developed patient, in no distress at this time. HEAD: Atraumatic. Normocephalic. EYES: Pupils equal round and reactive. Extraocular motions intact. No scleral icterus. No injection or drainage. ENT: Nose without bleeding, purulent drainage. Throat without erythema, tonsillar hypertrophy or exudate. Airway patent. NECK: Trachea midline. Non tender CARDIOVASCULAR: Regular rate and rhythm without murmurs, gallops, or rubs. RESPIRATORY: Clear to auscultation. Breath sounds equal bilaterally. No wheezes, rales, or rhonchi.? GASTROINTESTINAL: Abdomen soft, mild tenderness with palpation across the lower abdomen with localized peritonitis, nondistended.? Bowel sounds present in all 4 quadrants. EXTREMITIES: No edema or joint tenderness. BACK: Nontender without deformity or crepitance. No flank tenderness. NEURO: AOx3. SKIN: No rash or erythema of visible areas Objective Labs Result Diagrams: 04/08/22 06:31 04/07/22 05:47 Labs: Laboratory Results - last 24 hr 04/08/22 06:31 WBC 7.7 RBC 4.16 L Hgb 12.8 L Hct 38.1 L MCV 91.6 MCH 30.9 MCHC 33.7 RDW 13.1 Plt Count 232 Neut % (Auto) 60.7 Lymph % (Auto) 17.8 L [place] % (Auto) 14.3 H Eos % (Auto) 6.2 H Baso % (Auto) 1.0 Neut # (Auto) 4700 Lymph # (Auto) 1400 [place] # (Auto) 1100 H Eos # (Auto) 500 H Baso # (Auto) 100 PFSH Medical History Depression Gout (11/14/14) Gout History of diverticulitis History of prostate cancer History of radiation therapy History of TIA (transient ischemic attack) Hypertension (11/14/14) Surgical History History of left knee surgery History of tonsillectomy Family History Mother Natural Father Hypertension [place] (myocardial infarction) Social History household members: significant other Smoking Status: Never smoker Discharge Plan Discharge Plan Patient Disposition: Home Provider Discharge Comment: You were admitted to the hospital with diverticulitis with abscess. Your symptoms improved with antibiotics, but you will need to continue this for a long time. Please follow up with your PCP and s pecialists for further management as an outpatient. Discharge orders & Medications Prescriptions: New amoxicillin-pot clavulanate 875-125 mg tablet 1 tab PO BID 30 Days Qty: 60 0RF amoxicillin-pot clavulanate 875-125 mg tablet 1 tab PO BID 30 Days Qty: 60 0RF Continued albuterol sulfate 90 mcg/actuation HFA aerosol inhaler 2 puff inhalation Q4-6H PRN (Reason: Congestion) allopurinol 300 mg tablet 300 mg PO DAILY amlodipine 10 mg tablet 10 mg PO DAILY bupropion HCl 300 mg tablet extended release 24 hr 300 mg PO QAM carvedilol phosphate 40 mg capsule, ER multiphase 24 hr 40 mg PO DAILY Rx Instructions: must administer with a meal/food propranolol 120 mg capsule,extended release 24 hr 120 mg PO DAILY aspirin 325 mg tablet 325 mg PO DAILY ibuprofen 100 mg tablet 200 mg PO DAILY potassium chloride 10 mEq capsule, extended release 10 meq PO DAILY Label Comments: Per patient taking for chronic diarreha Follow up/Referrals: Mu Villalobos MD [Primary Care Provider] - Diet/Activity/Treatments Diet: Diet as Tolerated Activity: As tolerated Discharge Data Primary Care Provider: Mu Villalobos Attending Provider: Lyndsay Castillo
== END 2022-04-08 15:14 | disposition home or self-care (01) ==
LOC: ED 19:55 → AC 04-07 00:52
PROVIDERS: Surgery; Admitting Provider Nurse Practitioner Family; Emergency Provider Emergency Medicine; PCP Family Medicine; Visit Provider Nurse Practitioner Family
DX: K57.20 Diverticulitis of large intestine with perforation and abscess without bleeding (principal); I10 Essential (primary) hypertension; Z86.73 Personal history of transient ischemic attack (TIA), and cerebral infarction without residual deficits; J45.909 Unspecified asthma, uncomplicated; F32.A Depression, unspecified; F41.9 Anxiety disorder, unspecified; Z20.822 Contact with and (suspected) exposure to COVID-19
CPT/HCPCS: 36415; 74177; 80048; 80053; 81001; 83605; 83690; 83735; 84145; 85025; 85610; 85651; 85730; 86140; 87040; 87045; 87635; 87899; 93005; 96365; 96366; 99224; 99225; 99231; 99232; 99284; C9803; G0378; J2543; Q9967

== ENCOUNTER → 2023-12-13 14:17 | Outpatient (CLI) | payer MEDICARE, SELFPAY ==
[2022-04-07 01:22] VITALS: BMI 25.4
--- NOTE | 2023-12-13 | DI.MRI.S_ITS ---
PROCEDURE: MR HEAD/BRAIN WO/W CON INDICATIONS: SEIZURE / AMNESIA / COGNITIVE IMPAIRMENT TECHNIQUE: Noncontrast axial T1 spin echo, axial T2 fast spin echo, sagittal and axial FLAIR, coronal T2 fast spin echo, axial gradient echo, axial diffusion and ADC through the brain. After the administration of contrast, axial and coronal and sagittal T1 spin echo with fat saturation through the brain. COMPARISON: None. FINDINGS: Image quality: Artifact is present at the brainstem. CSF spaces: Basal cisterns are patent. No extra-axial fluid collections. Ventricles are normal in size and shape. Brain: No midline shift. No intracranial bleeds or masses. No abnormal intracranial enhancement. There is cerebral volume loss for age. There is periventricular white matter chronic small vessel ischemic change. The brainstem appears normal. Diffusion-weighted images demonstrate no acute infarct. No chronic ischemic insults. Normal intravascular flow voids are present. Hip can not by are symmetric. Skull and face: Calvarial marrow is normal in signal. Orbits appear normal. Sinuses: Sinuses and mastoids appear clear. IMPRESSION: 1. No acute intracranial process. 2. Mild atrophy and chronic microvascular ischemic changes. 3. Hippocampi are symmetric. Dictated by: Salma Solorzano M.D. on 12/13/2023 at 16:58 Approved by: Salma Solorzano M.D. on 12/13/2023 at 16:59
== END ==
PROVIDERS: PCP Family Medicine; Referring Provider Psychiatry & Neurology Neuromuscular Medicine; Visit Provider Psychiatry & Neurology Neuromuscular Medicine
DX: R56.9 Unspecified convulsions (principal); R41.3 Other amnesia; R41.89 Other symptoms and signs involving cognitive functions and awareness
CPT/HCPCS: 70553; A9579

== ENCOUNTER 2024-03-03 15:11 | Inpatient (IN) | payer MEDICARE, SELFPAY ==
[2022-04-07 01:22] VITALS: BMI 25.4
[2024-03-03] VITALS (24 sets, daily range): BP systolic 102–126; BP diastolic 57–99; PULSE 64–77; RESP 19–30; TEMP 36.4–36.9; O2SAT 94–97; BMI 28.1
--- NOTE | 2024-03-03 15:40 | ED_ITS ---
HPI - General Adult General Chief complaint: Weakness Stated complaint: memory issues, weakness, sent by PCP Time Seen by Provider: 03/03/24 15:40 History of Present Illness HPI narrative: 79-year-old gentleman short of breath with chest pain last night headache today 2- home COVID tests complains that he has had increasing weakness over the last couple of days with worsening memory. He states that he has been on Keppra to help with that which was helping but is no longer. Additional history includes hypertension, TIA, diverticulitis, depression, history of prostate cancer. Patient's partner notices that over last couple of days his memory has gotten significantly worse. He reportedly came over at 630 in the morning to watch the game, which she had told him repeatedly did not start till 330 in the afternoon. He then wanted to take a nap but was not quite sure how to get back to his room. There were no reports of fever. It is unclear whether he actually had a bit of chest pain last night, he has not currently having pain. Telemetry suggest he is in atrial fibrillation, a new diagnosis for him Related Data Home Medications Medication Instructions Recorded Confirmed albuterol sulfate 90 mcg/actuation 2 puff inhalation Q4-6H PRN 10/13/20 04/07/22 aerosol inhaler Congestion allopurinol 300 mg tablet 300 mg PO DAILY 10/13/20 04/07/22 amlodipine 10 mg tablet 10 mg PO DAILY 10/13/20 04/07/22 bupropion HCl 300 mg 24 hr tablet, 300 mg PO QAM 10/13/20 04/07/22 extended release carvedilol phosphate 40 mg 40 mg PO DAILY 10/13/20 04/07/22 capsule,[id number] multiphase propranolol 120 mg capsule,24 120 mg PO DAILY 10/13/20 04/07/22 hr,extended release aspirin 325 mg tablet 325 mg PO DAILY 12/29/20 04/07/22 ibuprofen 100 mg tablet 200 mg PO DAILY 12/29/20 04/07/22 potassium chloride 10 mEq 10 meq PO DAILY 12/29/20 04/07/22 capsule,extended release Allergies Allergy/AdvReac Type Severity Reaction Status Date / Time erythromycin base Allergy Intermediate TEARS UP Verified 04/06/22 19:04 [ERYTHROMYCIN BASE] MY GUT gabapentin AdvReac Verified 04/06/22 19:04 Review of Systems Review of Systems Narrative: Pertinent positive and negative findings as per HPI Patient History Medical History Depression Gout (11/14/14) Gout History of diverticulitis History of prostate cancer History of radiation therapy History of TIA (transient ischemic attack) Hypertension (11/14/14) Surgical History History of left knee surgery History of tonsillectomy Family History Mother Natural Father Hypertension MA (myocardial infarction) Social History household members: significant other Smoking Status: Never smoker Smoking Status: Never smoker alcohol intake frequency: 3 or more drinks per day Substance Use Type: does not use Exam Initial Vital Signs Initial Vital Signs: Vital Signs Temperature 98.4 F 03/03/24 15:34 Pulse Rate 71 03/03/24 15:34 Respiratory Rate 19 03/03/24 15:34 Blood Pressure 120/57 L 03/03/24 15:34 Pulse Oximetry 96 03/03/24 15:34 Oxygen Delivery Method Room Air 03/03/24 15:34 General: Older appearing but otherwise healthy, in no acute distress. Able to participate with history. HEENT: Moist mucous membranes, normal sclera with reactive pupils, Neck: No JVD, supple Respiratory: Lungs are clear to auscultation, no wheezing no rales no rhonchi. Full and symmetrical air movement Cardiac: irregular, no murmurs no bruits Abdomen: Soft, nontender, good bowel tones, no flank pain Skin: Slightly pale, diaphoretic Neurologic: Grossly neurologically intact with no obvious asymmetries or abnormalities. NIH=0 Extremities: No trauma, well perfused Psych: Cooperative, mild difficulty with short-term memory but otherwise involved in an appropriate Course Orders Ordered: ED Orders 03/03/24 15:36 Ictotest Urine Stat Urine Microscopic Stat 03/03/24 15:37 EKG-12 Lead Stat 03/03/24 15:41 XR chest 1V Stat 03/03/24 15:53 CT angio head and neck Stat CT head/brain wo con Stat 03/03/24 16:30 Complete Blood Count AUTO DIFF Stat Comprehensive Metabolic Panel Stat Lipase Stat Magnesium Stat NT-proBNP (BNP-Adult 18+) Stat PTT Partial Thromboplastin Musa Stat Prothrombin Time INR Stat Troponin & CK Cardiac Panel Stat 03/03/24 16:47 Respiratory Panel (Film Array) Stat Vital Signs Vital signs: Vital Signs - 8 hr 03/03/24 15:34 03/03/24 15:35 03/03/24 15:36 Temperature 98.4 F Pulse Rate 71 Respiratory Rate 19 Blood Pressure 120/57 L 120/58 L Pulse Oximetry 96 96 Oxygen Delivery Method Room Air 03/03/24 15:36 03/03/24 15:45 03/03/24 16:00 Temperature Pulse Rate 73 73 73 Respiratory Rate 25 H 23 Blood Pressure Pulse Oximetry 95 96 96 Oxygen Delivery Method Room Air 03/03/24 16:00 03/03/24 16:15 Temperature Pulse Rate 72 Respiratory Rate 23 Blood Pressure 105/59 L Pulse Oximetry 96 Oxygen Delivery Method Medical Decision Making Lab Data 03/03/24 16:30 03/03/24 16:30 Labs: Lab Results 03/03/24 03/03/24 Range/Units 15:36 16:30 WBC 11.7 H (4.5-11.0) X10^3/uL RBC 4.11 L (4.5-5.9) X10^6/uL Hgb 13.2 L (13.5-17.5) g/dL Hct 39.3 L (41-53) % MCV 95.7 (80-100) fL MCH 32.1 (26-34) PG MCHC 33.5 (30-36) % RDW 13.9 (11.6-14.8) % Plt Count 183 (150-400) X10^3/uL Neut % (Auto) Not Reportable Lymph % (Auto) Not Reportable [place] % (Auto) Not Reportable Eos % (Auto) Not Reportable Baso % (Auto) Not Reportable Lymph # (Auto) Not Reportable [place] # (Auto) Not Reportable Baso # (Auto) Not Reportable Total Counted 100 Seg Neutrophils % 71.0 H (38-70) % Lymphocytes % (Manual) 20.0 L (25-45) % Monocytes % (Manual) 9.0 (2-11) % Neutrophils # (Manual) 8307 H (1080-6449) /uL RBC Morphology Normal morphology PT 15.4 H (9.4-12.5) SECONDS INR 1.3 (0.9-1.3) APTT 33 (25.1-36.5) SECONDS Sodium 132 L (137-145) mmol/L Potassium 4.0 (3.4-5.1) mmol/L Chloride 103 (98-107) mmol/L Carbon Dioxide 19 L (22-32) mmol/L BUN 32 H (9-20) mg/dL Creatinine 1.31 H (0.66-1.25) mg/dL Estimated GFR 55 L (>60) mL/min BUN/Creatinine Ratio 24.4 H (6-22) Glucose 115 H (80-110) mg/dL Calcium 8.7 (8.4-10.2) mg/dL Magnesium 2.1 (1.6-2.3) mg/dL Total Bilirubin 1.1 (0.2-1.3) mg/dL AST 23 (17-59) IU/L ALT 24 (<50) IU/L Alkaline Phosphatase 82 (38-126) U/L Total Creatine Kinase 37 L (55-170) U/L Troponin I < 0.012 (0.01-0.034) ng/mL NT-Pro-B Natriuret Pep 4990 H (<450) pg/mL Total Protein 6.4 (6.3-8.2) g/dL Albumin 3.2 L (3.5-5.0) g/dL Globulin 3.2 (1.7-4.1) g/dL Albumin/Globulin Ratio 1.0 (1.0-2.8) Lipase 75 (23-300) U/L Ur Bilirubin Confirm Negative (Negative) Urine RBC None seen (0-5/HPF) Urine WBC 0-1/hpf (0-5/HPF) Ur Squamous Epith Cells None seen (0-5/HPF) Urine Bacteria None seen (None) Ur Culture Indicated? Cult not indicated Vol Urine Centrifuged 10ml (spun) Urine Dip Bedside Urine Glucose Negative Bedside Urine Bilirubin + 1 Bedside Urine Ketone + 15 Urine Specific [place] 1.020 Bedside Urine Occult Blood - Negative Bedside Urine pH 6.0 Bedside Urine Protein ++ 100 Bedside Urine Urobilinogen - Negative Bedside Urine Nitrite - Negative Bedside Urine Leukocytes +/- 15 Esterase Point of care testing: Urine Dip Bedside Urine Glucose Negative Bedside Urine Bilirubin + 1 Bedside Urine Ketone + 15 Urine Specific [place] 1.020 Bedside Urine Occult Blood - Negative Bedside Urine pH 6.0 Bedside Urine Protein ++ 100 Bedside Urine Urobilinogen - Negative Bedside Urine Nitrite - Negative Bedside Urine Leukocytes +/- 15 Esterase MDM Narrative Medical decision making narrative: CC: Worsening chronic memory issues, question whether this has been significantly exacerbated in the last 24-48 hours, possible chest pain, possible dyspnea Complicating co-morbidities:chronic memory issues, hypertension, prior TIA, CAD clopidogrel and carvedilol Data collected from: patient, partner Social determinants of health that may influence the patients condition:lives on [facility] Medical records reviewed: Hospitalization secondary to acute diverticulosis with discharge in March of 2022 is reviewed Differential considered: Worsening cognitive decline, respiratory illness, acute coronary syndrome, TIA Exam documented above, pertinent findings include: Patient is able to cooperate with exam. No significant findings on physical exam aside from an irregular heartbeat and diaphoresis that the patient attributes to wearing a sweatshirt while they were doing errands earlier today. Lab Test results independently reviewed as above. Pertinent findings: White count is slightly elevated at 11.7. Stable H&H. Chemistries are notable for bump in creatinine from 0.8 up to 1.3. BNP is elevated at almost 5000 Troponin is undetectable Urine is reassuring Independently reviewed EKG: Atrial fibrillation rate controlled at a rate of 75. The atrial fibrillation does appear to be a new diagnosis Imaging studies independently reviewed: Chest x-ray is unremarkable Noncontrast CT scan of the head does not show acute abnormalities CT angiogram of the head and neck does not show any acute vascular abnormality Discussion: 79-year-old gentleman with increasing confusion in the setting of baseline confusion. Appears to be a new rate controlled atrial fibrillation with new heart failure appreciated. No sign of infection or acute coronary syndrome. No sign of stroke or obvious TIA. I suspect that the atrial fibrillation with a minor congestive heart failure both of which are new diagnoses or contributing to his baseline cognitive deficits and do need additional workup. Currently on clopidogrel unsure if that is adequate for continued prophylaxis. With the increased confusion possibility of TIA or stroke was entertained CT scan of the head and CTA were unremarkable. Discharge Plan Departure Patient Disposition: Admitted As Inpatient Clinical Impression: Atrial fibrillation Qualifiers: Atrial fibrillation type: unspecified Qualified Code(s): I48.91 - Unspecified atrial fibrillation Acute congestive heart failure Qualifiers: Heart failure type: unspecified Qualified Code(s): I50.9 - Heart failure, unspecified Admit Date/Time: 03/03/24 17:51 Admit Provider: Rex Workman V
--- NOTE | 2024-03-03 15:41 | DI.RAD.S_ITS ---
PROCEDURE: XR CHEST 1V INDICATIONS: chest pain TECHNIQUE: One view of the chest was acquired. COMPARISON: [facility], CT, CT ANGIO HEAD AND NECK, 03/03/2024, 16:21. [facility], CT, CT HEAD/BRAIN WO CON, 03/03/2024, 16:21. FINDINGS: Surgical changes and devices: None. Lungs and pleura: An incomplete inspiratory result is noted, causing a crowded appearance to the lung markings. No focal infiltrates are seen. No pneumothorax or significant pleural effusions are seen. Mediastinum: Mediastinal contours appear normal. Heart size is normal. Atherosclerotic calcification of the aortic arch is noted. Bones and chest wall: No suspicious bony lesions. Age-appropriate bony degenerative changes are seen. Overlying soft tissues appear unremarkable. IMPRESSION: Limited portable chest examination, without a significant cardiopulmonary abnormality identified. Dictated by: Wicho Beckford M.D. on 03/03/2024 at 16:09 Approved by: Wicho Beckford M.D. on 03/03/2024 at 16:10
--- NOTE | 2024-03-03 15:42 | EKG_ITS ---
[place] [address] [place] [id number] Test Date: 2024-03-03 Pat Name: Eleil Ford Department: [facility] Room: Gender: Male [place] [employer] Tester: LEWIS : 1945 Requested By: Order Number: [id number] Reading MD: Garry Ruiz Measurements Intervals [place] Rate: 75 P: DE: QRS: -49 QRSD: 94 T: 2 QT: 358 QTc: 399 Interpretive Statements Atrial fibrillation Left axis deviation Moderate voltage criteria for LVH, may be normal variant ( R in aVL , [place] product ) Early repolarization, pericarditis, or injury Electronically Signed On 03-05-2024 15:21:26 PDT by Garry Ruiz
[2024-03-03 15:50] LABS: Ictotest Urine Negative (Negative)
--- NOTE | 2024-03-03 15:53 | DI.CT.S_ITS ---
PROCEDURE: CT HEAD/BRAIN WO CON INDICATIONS: altered mental status TECHNIQUE: Noncontrast 4.5 mm thick angled axial sections acquired from the foramen magnum to the vertex, with coronal and sagittal reformats. For radiation dose reduction, the following was used: automated exposure control, adjustment of mA and/or kV according to patient size. COMPARISON: [facility], CR, XR CHEST 1V, 03/03/2024, 15:47. [facility], CT, CT ANGIO HEAD AND NECK, 03/03/2024, 16:21. FINDINGS: Image quality: Diagnostic. CSF spaces: Basal cisterns are patent. No extra-axial fluid collections. The ventricles are symmetric in size and shape. Brain: No intracranial bleeds or masses. There is cerebral volume loss for age, with resultant ventricular and sulcal prominence. There are periventricular and deep white matter chronic small vessel ischemic changes. There is intracranial internal carotid artery atherosclerosis. Skull and face: Calvarium and visualized facial bones appear intact, without suspicious lesions. Sinuses: Visualized sinuses and mastoids are clear. IMPRESSION: Noncontrast head CT within normal limits for age. Dictated by: Wicho Beckford M.D. on 03/03/2024 at 16:10 Approved by: Wicho Beckford M.D. on 03/03/2024 at 16:11
--- NOTE | 2024-03-03 15:53 | DI.CT.S_ITS ---
PROCEDURE: CT ANGIO HEAD AND NECK INDICATIONS: altered mental status TECHNIQUE: After the administration of intravenous contrast, 1 mm thick sections acquired from the aortic arch through the [place] of [place]. 3-dimensional [id number] (MIP) and/or volume rendering reformats were acquired of the central intracranial vasculature and neck separately. For radiation dose reduction, the following was used: automated exposure control, adjustment of mA and/or kV according to patient size. COMPARISON: [facility], CR, XR CHEST 1V, 03/03/2024, 15:47. [facility], CT, CT HEAD/BRAIN WO CON, 03/03/2024, 16:21. FINDINGS: Image quality: There is artifact associated with the metallic hardware. Artifact from the metallic hardware is reduced by metal reconstruction algorithm. There is streak artifact seen through the level of the shoulders. Mac row to contamination BRAIN: CSF spaces: Ventricles are normal in size and shape. Basal cisterns are patent. No extra-axial fluid collections. Brain: No significant abnormality of the brain can be seen. Skull and face: Calvarium and facial bones appear intact, without suspicious lesions. Orbits appear normal. Sinuses: Sinuses and mastoids are clear. HEAD CT ANGIOGRAPHY: Anterior circulation: Intracranial internal carotid arteries are normal in size and flow. The flow within the paired anterior cerebral arteries is normal and symmetric. The flow within the middle cerebral arteries is normal and symmetric. The anterior communicating artery is seen. No aneurysms are seen. Posterior circulation: Visualized portions of the vertebral arteries demonstrate normal caliber, and join to form a normal appearing basilar artery. Flow within the posterior cerebral arteries is normal and symmetric. No aneurysms are seen. NECK CT ANGIOGRAPHY: Carotid system: The great vessels demonstrate a conventional anatomy as they arise from the aortic arch. Atherosclerotic calcification is noted. The origins of the common carotid arteries appear patent. The common carotid arteries demonstrate normal caliber and courses. The bifurcation regions demonstrate atherosclerotic irregularity and calcification. Posterior circulation: The origins of the vertebral arteries both appear widely patent. The more superior extracranial portions of both vertebral arteries also demonstrate normal courses and calibers. The left vertebral artery is dominant to the right. Soft tissues: Visualized neck soft tissues demonstrate no suspicious abnormalities. Bones: No suspicious bony lesions. Visualized cervical spine appears normally aligned. At least moderate cervical spine degenerative change can be seen. IMPRESSION: No significant intracranial arterial abnormality is seen. No significant abnormality is seen within the arteries of the neck. If there is strong clinical suspicion for an acute stroke, please consider a brain MRI for further evaluation, as it is more sensitive (assuming that there is no contraindication to MRI). Any quantitative measurements of stenosis were performed using NASCET criteria. Dictated by: Wicho Beckford M.D. on 03/03/2024 at 16:11 Approved by: Wicho Beckford M.D. on 03/03/2024 at 16:15
[2024-03-03 16:10] LABS: Urine Volume 10mL (spun)
[2024-03-03 16:13] LABS: Bacteria Urine None Seen; Culture Indicated Urine Cult Not Indicated; RBC Urine None Seen (0-5/HPF); Squamous Epithelial Cell Urine None Seen (0-5/HPF); WBC Urine 0-1/HPF (0-5/HPF)
[2024-03-03 16:50] LABS: INR 1.3 (0.9-1.3); Prothrombin Time 15.4 SECONDS (9.4-12.5)
[2024-03-03 16:53] LABS: PTT Partial Thromboplastin Tim 33 SECONDS (25.1-36.5)
[2024-03-03 16:55] LABS: Alanine Aminotransferase 24 IU/L (<50); Albumin 3.2 g/dL (3.5-5.0); Alkaline Phosphatase 82 U/L (38-126); Aspartate Aminotransferase 23 IU/L (17-59); BUN Creatinine Ratio 24.4 (6-22); Bilirubin Total 1.1 mg/dL (0.2-1.3); Blood Urea Nitrogen 32 mg/dL (9-20); Calcium 8.7 mg/dL (8.4-10.2); Carbon Dioxide 19 mmol/L (22-32); Chloride 103 mmol/L (98-107); Creatine Kinase 37 U/L (55-170); Estimated Glomerular Filt Rate 55 mL/min (>60); Globulin 3.2 g/dL (1.7-4.1); Glucose 115 mg/dL (80-110); HEMOLYSIS < 15 (0-50); Lipase 75 U/L (23-300); Magnesium 2.1 mg/dL (1.6-2.3); Sodium 132 mmol/L (137-145); Total Protein 6.4 g/dL (6.3-8.2)
[2024-03-03 16:57] LABS: Add Manual Diff / Slide Review YES; Hematocrit 39.3 % (41-53); Hemoglobin 13.2 g/dL (13.5-17.5); Mean Corpuscular HGB Conc 33.5 % (30-36); Mean Corpuscular Hemoglobin 32.1 PG (26-34); Mean Corpuscular Volume 95.7 fL (80-100); Platelet Count 183 X10^3/uL (150-400); Red Blood Cell Count 4.11 X10^6/uL (4.5-5.9); Red Cell Distribution Width 13.9 % (11.6-14.8); White Blood Cell Count 11.7 X10^3/uL (4.5-11.0)
[2024-03-03 17:06] LABS: NT-proBNP (BNP-Adult 18+) 4990 pg/mL (<450); Troponin I < 0.012 ng/mL (0.01-0.034)
[2024-03-03 17:25] LABS: Neutrophils Absolute Manual 8307 /uL (3000-5900); Total Cells Counted 100
[2024-03-03 17:26] LABS: RBC Morphology Normal Morphology
[2024-03-03 17:42] LABS: Adenovirus Not Detected (Not Detect); B. parapertussis Not Detected (Not Detecte); Bordetella pertussis Not Detected (Not Detect); Chlamydophila pneumoniae Not Detected (Not Detect); Coronavirus 229E Not Detected (Not Detect); Coronavirus HKU1 Not Detected (Not Detect); Coronavirus NL 63 Not Detected (Not Detect); Coronavirus OC43 Not Detected (Not Detect); Human Metapneumovirus Not Detected (Not Detect); Human Rhinovirus/Enterovirus Not Detected (Not Detect); Influenza A Not Detected (Not Detect); Influenza B Not Detected (Not Detect); Mycoplasma pneumoniae Not Detected (Not Detect); Parainfluenza Virus 1 Not Detected (Not Detect); Parainfluenza Virus 2 Not Detected (Not Detect); Parainfluenza Virus 3 Not Detected (Not Detect); Parainfluenza Virus 4 Not Detected (Not Detect); Respiratory Syncytial Virus Not Detected (Not Detect); SARS- CoV-2 Not Detected (Not Detecte)
[2024-03-03] MEDS: HEPARIN 5,000 UNIT/ML VIAL 6000 UNIT IV (18:04)
[2024-03-03] MEDS: HEPARIN DRIP 25,000 UNIT/500 ML IV.SOLN 27.6 UNIT IV (18:07)
--- NOTE | 2024-03-03 18:09 | P.HP_ITS ---
History of Present Illness History of Present Illness Date Patient Seen: 03/03/24 Time Patient Seen: 18:15 Date of Onset of Symptoms: 03/03/24 Chief complaint: memory issues, weakness, sent by PCP Narrative: 79-year-old man from [facility] under the primary care of Dr. Jerica Munoz reports 2 days of increasing weakness, chest pain, shortness of breath and worsening memory. The patient's partner had reported that he appeared confused, stating that he came over to watch a soccer game at 6:30 a.m. in the morning, despite her having told him repeatedly that it did not start until 330 in the afternoon. He reportedly had some confusion findings room. He describes 6 to 7/10 chest pain occurring about 8 times last night, typically after deep breathing or coughing, lasting 10-15 seconds and then abating. He has also had shoulder and neck pain for the past 2 weeks that he states was due to a fall, and has been applying lidocaine patches to the neck and right shoulder area. He provides history to this provider as his partner has left the emergency department. He denies a prior history of cardiac disease. He was noted to be in atrial fibrillation in the emergency department. New [address] segment elevations in leads 1, aVL, V5 and V6 are noted, with a normal troponin on presentation and a repeat troponin obtained also returning normal. His BNP is elevated but he denies overt symptoms of shortness of breath, orthopnea, paroxysmal nocturnal dyspnea or lower extremity edema. he recounts a long complicated history of a workup for memory loss about 1 year ago at a hospital in [place], and follow up with the neurologist that ultimately led him to be placed on Keppra for possible seizure disorder. He was told he could not drive for 6 months after this was started, which she states is just about to elapse, and he had been hoping to return to driving at this point. At the present time in the emergency department he denies chest pain or shortness of breath. [facility] Medical History Depression Gout History of diverticulitis History of radiation therapy History of prostate cancer History of TIA (transient ischemic attack) Hypertension (11/14/14) Gout (11/14/14) Surgical History History of left knee surgery History of tonsillectomy Family History Mother Natural Father Hypertension [place] (myocardial infarction) Social History household members: significant other Smoking Status: Never smoker Meds Home Medications and Allergies Home Medications Medication Instructions Recorded Confirmed Type albuterol sulfate 90 mcg/actuation 2 puff inhalation Q4-6H PRN 10/13/20 04/07/22 History aerosol inhaler Congestion allopurinol 300 mg tablet 300 mg PO DAILY 10/13/20 04/07/22 History amlodipine 10 mg tablet 10 mg PO DAILY 10/13/20 04/07/22 History bupropion HCl 300 mg 24 hr tablet, 300 mg PO QAM 10/13/20 04/07/22 History extended release carvedilol phosphate 40 mg 40 mg PO DAILY 10/13/20 04/07/22 History capsule,[id number] multiphase propranolol 120 mg capsule,24 120 mg PO DAILY 10/13/20 04/07/22 History hr,extended release aspirin 325 mg tablet 325 mg PO DAILY 12/29/20 04/07/22 History ibuprofen 100 mg tablet 200 mg PO DAILY 12/29/20 04/07/22 History potassium chloride 10 mEq 10 meq PO DAILY 12/29/20 04/07/22 History capsule,extended release Allergies Allergy/AdvReac Type Severity Reaction Status Date / Time erythromycin base Allergy Intermediate TEARS UP Verified 03/03/24 18:05 [ERYTHROMYCIN BASE] MY GUT gabapentin AdvReac Verified 03/03/24 18:05 Review of Systems Review of Systems ROS: Yes All systems reviewed with the patient and are negative except as otherwise documented Exam Vital Signs (past 8 hours): - 03/03/24 15:34 03/03/24 15:35 03/03/24 15:36 Temperature 98.4 F Pulse Rate 71 Respiratory Rate 19 Blood Pressure 120/57 L 120/58 L Pulse Oximetry 96 96 Oxygen Delivery Method Room Air 03/03/24 15:36 03/03/24 15:45 03/03/24 16:00 Temperature Pulse Rate 73 73 73 Respiratory Rate 25 H 23 Blood Pressure Pulse Oximetry 95 96 96 Oxygen Delivery Method Room Air 03/03/24 16:00 03/03/24 16:15 03/03/24 16:30 Temperature Pulse Rate 72 73 Respiratory Rate 23 Blood Pressure 105/59 L Pulse Oximetry 96 96 Oxygen Delivery Method 03/03/24 16:38 03/03/24 16:38 03/03/24 16:45 Temperature Pulse Rate 74 72 Respiratory Rate 22 Blood Pressure 107/59 L Pulse Oximetry 95 96 Oxygen Delivery Method 03/03/24 17:00 03/03/24 17:00 03/03/24 17:15 Temperature Pulse Rate 71 72 Respiratory Rate 23 23 Blood Pressure 117/61 Pulse Oximetry 97 96 Oxygen Delivery Method 03/03/24 17:30 03/03/24 17:30 Temperature Pulse Rate 74 Respiratory Rate 23 Blood Pressure 114/74 Pulse Oximetry 94 Oxygen Delivery Method Oxygen Delivery Method Room Air Narrative Exam Narrative: GENERAL: This is a well-nourished, well-developed patient, in no apparent distress. HEAD: Atraumatic. Normocephalic. No temporal or scalp tenderness. EYES: Pupils equal round and reactive. Extraocular motions intact. No scleral icterus. No injection or drainage. ENT: Mucous membranes pink and moist. NECK: Trachea midline. No JVD, bruits or lymphadenopathy. Supple, nontender, no meningeal signs. CARDIOVASCULAR: Regular rate and rhythm without murmurs, gallops, or rubs. RESPIRATORY: Clear to auscultation. GASTROINTESTINAL: Abdomen soft, non-tender, nondistended. EXTREMITIES: No clubbing, cyanosis, or edema. BACK: Nontender without deformity or crepitance. No flank tenderness. NEUROLOGIC: Alert, oriented to person, time, place, president and recent events, speech fluent, full upper and lower motor strength, no focal deficits evident. DERMATOLOGIC: No rashes or skin lesions. Objective ECG Impression: Atrial fibrillation at 75bpm Left axis deviation Moderate voltage criteria for LVH, may be normal variant ( R in aVL , Mati product ) ST elevation, consider early repolarization, pericarditis, or injury Compared with 04/06/2022,, 10/03/2020, and 07/31/2012, atrial fibrillation is new, as well as LVH and ST elevation changes Imaging Chest x-ray: Radiologist's impression: Limited portable chest examination, without a significant cardiopulmonary abnormality identified. CT scan - head: Radiologist's impression: Noncontrast head CT within normal limits for age. CTA head and neck: Radiologist's impression: No significant intracranial arterial abnormality is seen. No significant abnormality is seen within the arteries of the neck. If there is strong clinical suspicion for an acute stroke, please consider a brain MRI for further evaluation, as it is more sensitive (assuming that there is no contraindication to MRI). Labs 03/03/24 16:30 03/03/24 16:30 Labs: Laboratory Results - last 24 hr 03/03/24 03/03/24 03/03/24 15:36 16:30 16:45 WBC 11.7 H RBC 4.11 L Hgb 13.2 L Hct 39.3 L MCV 95.7 MCH 32.1 MCHC 33.5 RDW 13.9 Plt Count 183 Neut % (Auto) Not Reportable Lymph % (Auto) Not Reportable Coos % (Auto) Not Reportable Eos % (Auto) Not Reportable Baso % (Auto) Not Reportable Lymph # (Auto) Not Reportable [place] # (Auto) Not Reportable Baso # (Auto) Not Reportable Total Counted 100 Seg Neutrophils % 71.0 H Lymphocytes % (Manual) 20.0 L Monocytes % (Manual) 9.0 Neutrophils # (Manual) 8307 H RBC Morphology Normal morphology PT 15.4 H INR 1.3 APTT 33 Sodium 132 L Potassium 4.0 Chloride 103 Carbon Dioxide 19 L BUN 32 H Creatinine 1.31 H Estimated GFR 55 L BUN/Creatinine Ratio 24.4 H Glucose 115 H Calcium 8.7 Magnesium 2.1 Total Bilirubin 1.1 AST 23 ALT 24 Alkaline Phosphatase 82 Total Creatine Kinase 37 L Troponin I < 0.012 NT-Pro-B Natriuret Pep 4990 H Total Protein 6.4 Albumin 3.2 L Globulin 3.2 Albumin/Globulin Ratio 1.0 Lipase 75 Ur Bilirubin Confirm Negative Urine RBC None seen Urine WBC 0-1/hpf Ur Squamous Epith Cells None seen Urine Bacteria None seen Ur Culture Indicated? Cult not indicated Vol Urine Centrifuged 10ml (spun) Chlamy pneumoniae PCR Not detected Adenovirus (PCR) Not detected B.parapertussis DNA PCR Not detected Coronavirus OC43 (PCR) Not detected Coronavirus HKU1 (PCR) Not detected Coronavirus 229E (PCR) Not detected SARS-CoV-2 (PCR) Not detected Coronavirus NL63 (PCR) Not detected Human Metapneumovir PCR Not detected Influenza Type A (PCR) Not detected Influenza Type B (PCR) Not detected M. pneumoniae (PCR) Not detected Parainfluenza 1 (PCR) Not detected Parainfluenza 2 (PCR) Not detected Parainfluenza 3 (PCR) Not detected Parainfluenza 4 (PCR) Not detected RSV (PCR) Not detected Entero/Rhino (PCR) Not detected Assessment & Plan Assessment & Plan narrative: 79-year-old man with a complex history of possible seizure disorder presents with recurrent mild confusion, new onset atrial fibrillation, and possible acute coronary syndrome with acute ST segment changes and elevated BNP. Overall this is very confusing and potentially concerning presentation, with a possible stuttering evolving myocardial infarction and attendant risk of serious medical complications. His case is reviewed with Dr. Dolores Mackey to discuss possible transfer from the emergency department to an outside hospital with on- site Cardiology services including cardiac catheterization capability. Given that the patient has ruled out for myocardial infarction and presently has no overt referable cardiac symptoms, we discussed keeping the patient at this hospital, monitoring serial cardiac enzymes on telemetry and obtain echocardiography in the morning. The patient is heparinized for cardiac and neurologic indications, suspecting a possible shower embolic event in the setting of new onset atrial fibrillation. It is possible EKG changes may occur secondary to a neurologic event. The patient is admitted to ICU status for close monitoring and further evaluation and consider transfer to a higher level of care pending further studies detailed below. 1. Confusion presenting with mild disorientation and memory lapses this morning. Consider possible subacute embolic stroke. Continue IV heparin started in the emergency department. Obtain stroke protocol brain MRI. 2. New onset atrial fibrillation. Rate appears adequately controlled. Treat with IV heparin acutely given possibility of further cardiac embolization. 3. Acute ischemic ST segment changes on EKG, with vague nonspecific transient chest pain and shoulder pain, normal troponin testing x2. Consider secondary neurologic EKG changes versus possible underlying cardiomyopathy. Obtain echocardiogram. 4. Elevated BNP. He was administered furosemide 20 mg IV in the emergency department. Obtain echocardiogram. 5. Acute kidney injury, with elevated creatinine 1.31 mg/dL on admission. Monitor closely following administration of furosemide, as this may represent volume depletion, versus possible acute kidney injury injury from a shower embolic event. 6. Mild leukocytosis. No overt evidence of infection. Urinalysis and PCR panel negative. Repeat WBC tomorrow. 7. Seizure disorder. Continue routine Keppra. Prior history is vague and therapy appeared to be empiric. 8. Hypertension. Adequately controlled. Continue routine medications 9. Gout. Continue routine medication. 10. Essential tremor. Continue propranolol. 11. Code status: Full code. Reviewed and confirmed with patient on admission. Plan: -admit to ICU -monitor on telemetry -serial cardiac enzymes -frequent neurologic checks -heparin infusion -echocardiography -brain MRI stroke protocol -continue routine medications otherwise -consider tertiary transfer pending workup -full code Time-Based Coding :: 90 minutes of critical care time was spent Quality VTE Deep Vein Thrombosis/Pulmonary Embolism Present on Admission: No MIPS - Admit I confirm the patient?s Advance Care Plan is present, Code status is documented, Surrogate decision maker is in patient?s record [If Yes, STOP here]: Yes MIPS - Meds 'Current medications' to include all prescriptions, [id number] products, herbals, cannabis/cannabidiol products, and vitamin/mineral/dietary (nutritional) supplements. I have utilized all available resources to obtain, update, or review the patient?s current medications. [If Yes, STOP here]: Yes PROFEE Charge Codes Critical Care: 92099 ([id number])
[2024-03-03 18:56] LABS: Troponin I < 0.012 ng/mL (0.01-0.034)
--- NOTE | 2024-03-03 19:09 | EKG_ITS ---
[address] [address] Test Date: 2024-03-03 Pat Name: Eliel Ford Department: Room: 228 Gender: Male B2B Appointment Setter: : 1945 Requested By: Order Number: [id number] Reading MD: Garry Ruiz Measurements Intervals [place] Rate: 69 P: [place]: QRS: -42 QRSD: 98 T: 11 QT: 386 QTc: 413 Interpretive Statements Atrial fibrillation Left axis deviation Minimal voltage criteria for LVH, may be normal variant ( Mati product ) Early repolarization, pericarditis, or injury Electronically Signed On 03-05-2024 15:24:00 PDT by Garry Ruiz
--- NOTE | 2024-03-03 19:26 | DI.ECHO.S_ITS ---
[facility] : : [address] : : [place] : : [id number] : : Phone: [phone] Echocardiogram Report + + :Name: JOSHUA LOWERY Study Date: 03/04/2024 Height: 65 in : :[facility] ReadingLocation: Weight: 169 lb : : Gender: Male BSA: 1.8 m2 : :: 1945 Age: 79 yrs BP: 113/64 mmHg: :Reason For Study: ABNORMAL EKG : :Ordering Physician: DEAN, : :SHANE Performed By: Francis Hung : :Referring: SHANE MORAN : + + Interpretation Summary The patient was in atrial fibrillation with heart rates between 64-84 bpm during the exam. Left ventricular wall thickness is mildly increased. The ejection fraction is estimated to be 50-55%. Diastolic function could not be accurately assessed due to atrial fibrillation. The left atrium is moderately dilated. The right ventricle is normal size. Right ventricular systolic function is mildly reduced. The right atrium is mildly dilated. There is mild mitral regurgitation. There is mild aortic regurgitation. There is mild tricuspid regurgitation. The right ventricular systolic pressure is estimated to be at least 34 mmHg based on an estimated right atrial pressure of 8 mm Hg. The ascending aorta is mildly enlarged, 4.0 cm. Procedure: A two-dimensional transthoracic echocardiogram with color flow and Doppler was performed. The study quality was technically adequate. There is no prior echocardiogram noted for this patient. The patient was in atrial fibrillation with heart rates between 64-84 bpm during the exam. Left Ventricle: The left ventricle is normal in size. Left ventricular wall thickness is mildly increased. The ejection fraction is estimated to be 50- 55%. Diastolic function could not be accurately assessed due to atrial fibrillation. Right Ventricle: The right ventricle is normal size. Right ventricular systolic function is mildly reduced. Atria: The left atrium is moderately dilated. The right atrium is mildly dilated. The interatrial septum grossly appears intact with no obvious evidence for an atrial septal defect. Mitral Valve: The mitral valve is normal. There is no mitral valve stenosis. There is mild mitral regurgitation. The mitral regurgitant jet is eccentrically directed. Aortic Valve: The aortic valve is trileaflet. The aortic valve is mildly calcified. There is no aortic valve stenosis. There is mild aortic regurgitation. Tricuspid Valve: The tricuspid valve is normal. There is no tricuspid stenosis. There is mild tricuspid regurgitation. The right ventricular systolic pressure is estimated to be at least 34 mmHg based on an estimated right atrial pressure of 8 mm Hg. Pulmonic Valve: The pulmonic valve is not well visualized. There is no pulmonic valvular stenosis. There is a trace or physiologic amount of pulmonic regurgitation. Great Vessels: The aortic root is borderline dilated. The ascending aorta is mildly enlarged. The IVC is dilated (diameter is greater than 2.1 cm) yet it collapses greater than 50% with a sniff. This suggests a right atrial pressure of 8 mm Hg. Pericardium/ Pleura There is no pericardial effusion. There is no pleural effusion. MMode/2D Measurements & Calculations LVIDd: 5.2 cm LVOT diam: 2.3 cm LVIDs: 3.4 cm Ao root diam: 3.8 cm FS: 35.3 % asc Aorta Diam: 4.0 cm IVSd: 1.4 cm LVPWd: 1.3 cm LV mccord. diameter/BSA (cm/m^2): 2.8 LV sys. diameter/BSA (cm/m^2): 1.8 LA A2 area: 17.3 cm2 RA long axis: 5.6 cm LA A4 area: 25.0 cm2 RA area: 19.8 cm2 LA length (vol): 6.0 cm RA vol: 59.5 ml LA vol: 61.8 ml RA : 32.3 ml/m2 LA vol index: 33.6 ml/m2 IVC diam: 2.2 cm RVD1 (basal): 3.6 cm RVD2 (mid): 2.8 cm TAPSE: 1.1 cm Doppler Measurements & Calculations Ao V2 max: 132.0 cm/sec LVOT Max Alex: 105.7 cm/sec Ao V2 mean: 92.1 cm/sec LV V1 max P.5 mmHg Ao max P.0 mmHg LV V1 VTI: 19.2 cm Ao mean P.8 mmHg FRAN(I,D): 4.0 cm2 Ao V2 VTI: 20.4 cm FRAN(V,D): 3.4 cm2 sev ratio: 0.94 FRAN indexed to BSA (cm^2/m^2): 2.2 AI P1/2t: 366.6 msec AI dec slope: 284.5 cm/sec2 MV E max alex: 88.8 cm/sec TR max alex: 255.0 cm/sec MV A max alex: 28.5 cm/sec TR max P.1 mmHg MV E/A: 3.1 PA V2 max: 90.4 cm/sec Med Peak E' Alex: 6.8 cm/sec PA V2 mean: 61.2 cm/sec E/E' med: 13.1 PA mean P.7 mmHg Lat Peak E' Alex: 8.8 cm/sec PA pr(Accel): 54.5 mmHg E/E' lat: 10.1 E/e' average: 11.6 MV dec time: 0.15 sec SV(LVOT): 80.8 ml AV P1/2t-pr_phl: 530.8 msec Reading Physician:01:17 PM
--- NOTE | 2024-03-03 19:28 | DI.MRI.S_ITS ---
PROCEDURE: MR HEAD/BRAIN WO CON INDICATIONS: confusion TECHNIQUE: Non-contrast axial T1 spin echo, axial T2 fast spin echo, sagittal and axial FLAIR, coronal T2 fast spin echo, axial gradient echo, axial diffusion and ADC through the brain. COMPARISON: [facility], MR, MR HEAD/BRAIN WO/W CON, 12/13/2023, 14:31. [facility], CT, CT HEAD/BRAIN WO CON, 03/03/2024, 16:21. [facility], CT, CT ANGIO HEAD AND NECK, 03/03/2024, 16:21. FINDINGS: Image quality: Excellent. CSF spaces: Ventricles appear symmetric in size and shape. Basal cisterns are patent. No extra-axial fluid collections. Brain: No intracranial bleeds or mass effects. There is cerebral volume loss for age. There are periventricular and deep white matter chronic small vessel ischemic changes. Brainstem appears normal. Diffusion-weighted images show no acute infarct. No chronic ischemic insults. Normal intravascular flow voids are present. Skull and face: Calvarial bone marrow is normal in signal. Orbits are normal. There is a left lens replacement seen. Sinuses: Sinuses and mastoids are clear. IMPRESSION: No findings of acute or subacute infarction can be seen. No acute intracranial process is seen. Dictated by: Wicho Beckford M.D. on 03/04/2024 at 8:05 Approved by: Wicho Beckford M.D. on 03/04/2024 at 8:07
[2024-03-03] MEDS: levETIRAcetam 250 MG TABLET 500 MG PO (22:07)
[2024-03-03 22:24] LABS: MRSA (Nasal) PCR NOT DETECTED (Not Detect)
[2024-03-04] VITALS (31 sets, daily range): BP systolic 101–128; BP diastolic 55–80; PULSE 66–76; RESP 16–35; TEMP 36.1–37.2; O2SAT 93–97
[2024-03-04 00:20] LABS: PTT Partial Thromboplastin Tim 69 SECONDS (25.1-36.5)
[2024-03-04 05:13] LABS: Add Manual Diff / Slide Review NO; Basophils Absolute Auto 0 /uL (0-100); Basophils Percent Auto 0.4 % (0-2); Eosinophils Absolute Auto 100 /uL (0-450); Eosinophils Percent Auto 1.1 % (2-4); Hematocrit 39.6 % (41-53); Hemoglobin 13.2 g/dL (13.5-17.5); Lymphocytes Absolute Auto 1700 /uL (1100-4500); Lymphocytes Percent Auto 18.2 % (25-40); Mean Corpuscular HGB Conc 33.4 % (30-36); Mean Corpuscular Hemoglobin 32.2 PG (26-34); Mean Corpuscular Volume 96.3 fL (80-100); Monocytes Absolute Auto 1600 /uL (0-900); Monocytes Percent Auto 16.6 % (3-14); Neutrophils Absolute Auto 6100 /uL (1500-7000); Neutrophils Percent Auto 63.7 % (50-75); Platelet Count 180 X10^3/uL (150-400); Red Blood Cell Count 4.11 X10^6/uL (4.5-5.9); White Blood Cell Count 9.6 X10^3/uL (4.5-11.0)
[2024-03-04 05:21] LABS: PTT Partial Thromboplastin Tim 49 SECONDS (25.1-36.5)
[2024-03-04 05:23] LABS: Alanine Aminotransferase 23 IU/L (<50); Albumin 3.4 g/dL (3.5-5.0); Albumin Globulin Ratio 1.1 (1.0-2.8); Alkaline Phosphatase 87 U/L (38-126); Aspartate Aminotransferase 22 IU/L (17-59); BUN Creatinine Ratio 23.7 (6-22); Bilirubin Total 1.2 mg/dL (0.2-1.3); Blood Urea Nitrogen 28 mg/dL (9-20); Carbon Dioxide 24 mmol/L (22-32); Chloride 104 mmol/L (98-107); Estimated Glomerular Filt Rate > 60 mL/min (>60); Globulin 3.2 g/dL (1.7-4.1); Glucose 99 mg/dL (80-110); HEMOLYSIS < 15 (0-50); Magnesium 2.2 mg/dL (1.6-2.3); Potassium 4.1 mmol/L (3.4-5.1); Sodium 136 mmol/L (137-145); Total Protein 6.6 g/dL (6.3-8.2)
[2024-03-04 05:35] LABS: Troponin I < 0.012 ng/mL (0.01-0.034)
[2024-03-04] MEDS: HEPARIN 5,000 UNIT/ML VIAL 3800 UNIT IV ×2 (05:56→13:31)
[2024-03-04] MEDS: HEPARIN DRIP 25,000 UNIT/500 ML IV.SOLN 0.613 UNIT IV ×2 (06:30→10:18)
--- NOTE | 2024-03-04 07:03 | PC.NURSE ---
shift stacker RN note pt arrived from ER via stretcher, pivot to bed, A&Ox4 initially, progressively more confused and agitated as night progressed, impulsive attempting to get out of bed, VSS, afib 70s, denies pain, heparin gtt as ordered per protocol see MAR, bed alarm on and reinforced use of call jenkins many times
[2024-03-04] MEDS: allopurinoL 100 MG TABLET 300 MG PO (09:36)
[2024-03-04] MEDS: AMLODIPINE 5 MG TABLET 10 MG PO (09:37)
[2024-03-04] MEDS: ASPIRIN EC 325 MG TABLET PO (09:37)
[2024-03-04] MEDS: buPROPion XL 150 MG TAB 300 MG PO (09:38)
[2024-03-04] MEDS: carvediloL 12.5 MG TABLET PO ×2 (09:38→20:47)
[2024-03-04] MEDS: POTASSIUM CHLORIDE 10 MEQ TAB PO (09:39)
[2024-03-04] MEDS: PROPRANOLOL 10 MG TABLET 60 MG PO ×2 (09:39→20:51)
[2024-03-04] MEDS: levETIRAcetam 250 MG TABLET 500 MG PO ×2 (09:40→20:48)
[2024-03-04] MEDS: SODIUM CHLORIDE 0.9% FLUSH 10 ML IV ×2 (10:01→20:54)
--- NOTE | 2024-03-04 11:46 | CM.DANOTE ---
Initial DCP Assessment Visit Note Reviewed EMR and team rounds for status updates. Met with pt at bedside to introduce self and role, pt was found to be resting quietly in bed, alert/oriented, and able to discuss her d/c plan for home with Significant Other. He lives independently with his SO in their own home on [address]. His SO will assist with transporting him at d/c, they will likely need a Medical Priority Boarding Pass once he's medically stable and cleared for discharge, if he is unable to get a reservation. Payor: Medicare PCP: Dr. Munoz Pt is a 79 year-old M who presented to the ED last evening with worsening confusion, shortness of breath, chest pain, and headache w/worsening weakness over the last 2-days. His pain had resolved prior to presenting at the ED. He was started on telemetry which revealed a new A-fib and CHF, which are new dx's for pt. CT imaging was negative for any abnormalities. He was then started on anticoagulation and was admitted to the floor for further evaluation/tx. ECHO is pending. DCP will continue to follow and assist with d/c assistance/resource needs prior to d/c home. Discharge Planning/Care Management CM Discharge Assessment Start: 03/04/24 11:34 Freq: Status: Active Protocol: Document 03/04/24 11:34 DPL (Rec: 03/04/24 11:45 DPL [id number]) Discharge Planning Assessment Assigned Fire Assistant LAI Thakkar Advance Directives? Yes Advance Directives on File No History Provided By Patient,Medical Record Has Patient been admitted in last 30 No days? Prior Living Arrangements House Household Members significant other Type of transporation used prior to Drives own vehicle admit Independent with ADL's Yes Is patient alert and oriented? Yes Caregiver for Another No Comment No anticipated d/c needs at this time. Barriers to Discharge No Discharge Plan Home Transportation Arrangement Life Partner Referrals Initiated None needed Review Status In Process Please Provide Date Initial DC 03/04/24 Assessment Was Performed
--- NOTE | 2024-03-04 12:17 | EKG_ITS ---
[place] [address] [address] [place] [id number] Test Date: 2024-03-04 Pat Name: Eliel Ford Department: [facility] Room: 228 Gender: Male It Analyst: AYANNA : 1945 Requested By: Order Number: [id number] Reading MD: Garry Ruiz Measurements Intervals [place] Rate: 73 P: [place]: QRS: -47 QRSD: 102 T: 49 QT: 378 QTc: 416 Interpretive Statements Atrial fibrillation with a competing junctional pacemaker Left axis deviation Acute pericarditis Nonspecific T wave abnormality Electronically Signed On 03-05-2024 15:27:31 PDT by Garry Ruiz
[2024-03-04 12:28] LABS: PTT Partial Thromboplastin Tim 52 SECONDS (25.1-36.5)
--- NOTE | 2024-03-04 14:51 | PM.PN.1 ---
Subjective Subjective Date Patient Seen: 03/04/24 Time Patient Seen: 08:00 Interval history: 79-year-old man from [facility] under the primary care of Dr. Jerica Munoz reports 2 days of increasing weakness, chest pain, shortness of breath and worsening memory. The patient's partner had reported that he appeared confused, stating that he came over to watch a soccer game at 6:30 a.m. in the morning, despite her having told him repeatedly that it did not start until 330 in the afternoon. He reportedly had some confusion findings room. He describes 6 to 7/10 chest pain occurring about 8 times last night, typically after deep breathing or coughing, lasting 10-15 seconds and then abating. He has also had shoulder and neck pain for the past 2 weeks that he states was due to a fall, and has been applying lidocaine patches to the neck and right shoulder area. He provides history to this provider as his partner has left the emergency department. He denies a prior history of cardiac disease. He was noted to be in atrial fibrillation in the emergency department. New [address] segment elevations in leads 1, aVL, V5 and V6 are noted, with a normal troponin on presentation and a repeat troponin obtained also returning normal. His BNP is elevated but he denies overt symptoms of shortness of breath, orthopnea, paroxysmal nocturnal dyspnea or lower extremity edema. he recounts a long complicated history of a workup for memory loss about 1 year ago at a hospital in [place], and follow up with the neurologist that ultimately led him to be placed on Keppra for possible seizure disorder. He was told he could not drive for 6 months after this was started, which she states is just about to elapse, and he had been hoping to return to driving at this point. At the present time in the emergency department he denies chest pain or shortness of breath. Interval history: The patient is sitting up appears comfortable denies chest pain this morning. He became agitated and confused overnight. He told the evening intake nurse that he drinks 3 alcoholic beverages daily though states that he has not drunk alcohol in over 1 year today. 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 pt arrived from ER via stretcher, pivot to bed, A&Ox4 initially, progressively more confused and agitated as night progressed, impulsive attempting to get out of bed, VSS, afib 70s, denies pain, heparin gtt as ordered per protocol see MAR, bed alarm on and reinforced use of call jenkins many times Initialized on 03/04/24 07:03 - END OF NOTE Exam Vital Signs (past 8 hours): - 03/04/24 07:00 03/04/24 08:48 03/04/24 09:00 Temperature 97.8 F Pulse Rate 75 66 Respiratory Rate 16 24 Blood Pressure 128/72 122/68 Pulse Oximetry 97 95 Oxygen Delivery Method Room Air Oxygen Flow Rate 0 03/04/24 09:38 03/04/24 10:00 03/04/24 10:12 Temperature Pulse Rate 72 71 74 Respiratory Rate 17 24 Blood Pressure 118/56 L 113/67 Pulse Oximetry 97 96 Oxygen Delivery Method Oxygen Flow Rate 03/04/24 10:34 03/04/24 10:34 03/04/24 10:39 Temperature 97.0 F L Pulse Rate 73 72 Respiratory Rate 25 H 24 Blood Pressure 113/64 113/64 Pulse Oximetry 96 96 Oxygen Delivery Method Oxygen Flow Rate 0 03/04/24 11:00 03/04/24 11:00 03/04/24 12:00 Temperature Pulse Rate 71 76 Respiratory Rate 23 28 H Blood Pressure 114/67 Pulse Oximetry 96 Oxygen Delivery Method Oxygen Flow Rate 03/04/24 12:00 03/04/24 13:00 03/04/24 13:00 Temperature 99.0 F Pulse Rate 71 72 Respiratory Rate 24 25 H Blood Pressure 111/57 L 111/59 L Pulse Oximetry 94 Oxygen Delivery Method Oxygen Flow Rate 0 03/04/24 13:05 03/04/24 13:05 Temperature Pulse Rate 74 Respiratory Rate 23 Blood Pressure 111/59 L Pulse Oximetry Oxygen Delivery Method Oxygen Flow Rate Oxygen Delivery Method Room Air Oxygen Flow Rate 0 Narrative Exam Narrative: GENERAL: This is a well-nourished, well-developed patient, in no apparent distress. EYES: Pupils equal round and reactive. Extraocular motions intact. No scleral icterus. No injection or drainage. ENT: Mucous membranes pink and moist. NECK: Supple, nontender, no meningeal signs. CARDIOVASCULAR: Regular rate and rhythm without murmurs, gallops, or rubs. RESPIRATORY: Clear to auscultation. GASTROINTESTINAL: Abdomen soft, non-tender, nondistended. EXTREMITIES: No clubbing, cyanosis, or edema. BACK: Nontender without deformity or crepitance. No flank tenderness. NEUROLOGIC: Alert, oriented to person, time, place, president and recent events, speech fluent, full upper and lower motor strength, no focal deficits evident. DERMATOLOGIC: No rashes or skin lesions. Objective ECG Impression: Atrial fibrillation at 73bpm Left axis deviation 1-[address]-elevation in leads V3 through V5, T-wave inversions leads 1 and aVL Imaging MRI - head: Radiologist's impression: No findings of acute or subacute infarction can be seen. No acute intracranial process is seen. Echo: Radiologist's impression: The patient was in atrial fibrillation with heart rates between 64-84 bpm during the exam. Left ventricular wall thickness is mildly increased. The ejection fraction is estimated to be 50-55%. Diastolic function could not be accurately assessed due to atrial fibrillation. The left atrium is moderately dilated. The right ventricle is normal size. Right ventricular systolic function is mildly reduced. The right atrium is mildly dilated. There is mild mitral regurgitation. There is mild aortic regurgitation. There is mild tricuspid regurgitation. The right ventricular systolic pressure is estimated to be at least 34 mmHg based on an estimated right atrial pressure of 8 mm Hg. The ascending aorta is mildly enlarged, 4.0 cm. Labs 03/04/24 04:49 03/04/24 04:49 Labs: Laboratory Results - last 24 hr 03/03/24 03/03/24 03/03/24 15:36 16:30 16:45 WBC 11.7 H RBC 4.11 L Hgb 13.2 L Hct 39.3 L MCV 95.7 MCH 32.1 MCHC 33.5 RDW 13.9 Plt Count 183 Neut % (Auto) Not Reportable Lymph % (Auto) Not Reportable [place] % (Auto) Not Reportable Eos % (Auto) Not Reportable Baso % (Auto) Not Reportable Neut # (Auto) Lymph # (Auto) Not Reportable [place] # (Auto) Not Reportable Eos # (Auto) Baso # (Auto) Not Reportable Total Counted 100 Seg Neutrophils % 71.0 H Lymphocytes % (Manual) 20.0 L Monocytes % (Manual) 9.0 Neutrophils # (Manual) 8307 H RBC Morphology Normal morphology PT 15.4 H INR 1.3 APTT 33 Sodium 132 L Potassium 4.0 Chloride 103 Carbon Dioxide 19 L BUN 32 H Creatinine 1.31 H Estimated GFR 55 L BUN/Creatinine Ratio 24.4 H Glucose 115 H Calcium 8.7 Magnesium 2.1 Total Bilirubin 1.1 AST 23 ALT 24 Alkaline Phosphatase 82 Total Creatine Kinase 37 L Troponin I < 0.012 NT-Pro-B Natriuret Pep 4990 H Total Protein 6.4 Albumin 3.2 L Globulin 3.2 Albumin/Globulin Ratio 1.0 Lipase 75 Ur Bilirubin Confirm Negative Urine RBC None seen Urine WBC 0-1/hpf Ur Squamous Epith Cells None seen Urine Bacteria None seen Ur Culture Indicated? Cult not indicated Vol Urine Centrifuged 10ml (spun) Nasal Screen MRSA (PCR) Chlamy pneumoniae PCR Not detected Adenovirus (PCR) Not detected B.parapertussis DNA PCR Not detected Coronavirus OC43 (PCR) Not detected Coronavirus HKU1 (PCR) Not detected Coronavirus 229E (PCR) Not detected SARS-CoV-2 (PCR) Not detected Coronavirus NL63 (PCR) Not detected Human Metapneumovir PCR Not detected Influenza Type A (PCR) Not detected Influenza Type B (PCR) Not detected M. pneumoniae (PCR) Not detected Parainfluenza 1 (PCR) Not detected Parainfluenza 2 (PCR) Not detected Parainfluenza 3 (PCR) Not detected Parainfluenza 4 (PCR) Not detected RSV (PCR) Not detected Entero/Rhino (PCR) Not detected 03/03/24 03/03/24 03/04/24 18:25 20:45 00:00 WBC RBC Hgb Hct MCV MCH MCHC RDW Plt Count Neut % (Auto) Lymph % (Auto) [place] % (Auto) Eos % (Auto) Baso % (Auto) Neut # (Auto) Lymph # (Auto) [place] # (Auto) Eos # (Auto) Baso # (Auto) Total Counted Seg Neutrophils % Lymphocytes % (Manual) Monocytes % (Manual) Neutrophils # (Manual) RBC Morphology PT INR APTT 69 H D Sodium Potassium Chloride Carbon Dioxide BUN Creatinine Estimated GFR BUN/Creatinine Ratio Glucose Calcium Magnesium Total Bilirubin AST ALT Alkaline Phosphatase Total Creatine Kinase Troponin I < 0.012 NT-Pro-B Natriuret Pep Total Protein Albumin Globulin Albumin/Globulin Ratio Lipase Ur Bilirubin Confirm Urine RBC Urine WBC Ur Squamous Epith Cells Urine Bacteria Ur Culture Indicated? Vol Urine Centrifuged Nasal Screen MRSA (PCR) Not detected Chlamy pneumoniae PCR Adenovirus (PCR) B.parapertussis DNA PCR Coronavirus OC43 (PCR) Coronavirus HKU1 (PCR) Coronavirus 229E (PCR) SARS-CoV-2 (PCR) Coronavirus NL63 (PCR) Human Metapneumovir PCR Influenza Type A (PCR) Influenza Type B (PCR) M. pneumoniae (PCR) Parainfluenza 1 (PCR) Parainfluenza 2 (PCR) Parainfluenza 3 (PCR) Parainfluenza 4 (PCR) RSV (PCR) Entero/Rhino (PCR) 03/04/24 03/04/24 04:49 12:10 WBC 9.6 RBC 4.11 L Hgb 13.2 L Hct 39.6 L MCV 96.3 MCH 32.2 MCHC 33.4 RDW 14.0 Plt Count 180 Neut % (Auto) 63.7 Lymph % (Auto) 18.2 L [place] % (Auto) 16.6 H Eos % (Auto) 1.1 L Baso % (Auto) 0.4 Neut # (Auto) 6100 Lymph # (Auto) 1700 [place] # (Auto) 1600 H Eos # (Auto) 100 Baso # (Auto) 0 Total Counted Seg Neutrophils % Lymphocytes % (Manual) Monocytes % (Manual) Neutrophils # (Manual) RBC Morphology PT INR APTT 49 H D 52 H Sodium 136 L Potassium 4.1 Chloride 104 Carbon Dioxide 24 BUN 28 H Creatinine 1.18 Estimated GFR > 60 BUN/Creatinine Ratio 23.7 H Glucose 99 Calcium 9.0 Magnesium 2.2 Total Bilirubin 1.2 AST 22 ALT 23 Alkaline Phosphatase 87 Total Creatine Kinase Troponin I < 0.012 NT-Pro-B Natriuret Pep Total Protein 6.6 Albumin 3.4 L Globulin 3.2 Albumin/Globulin Ratio 1.1 Lipase Ur Bilirubin Confirm Urine RBC Urine WBC Ur Squamous Epith Cells Urine Bacteria Ur Culture Indicated? Vol Urine Centrifuged Nasal Screen MRSA (PCR) Chlamy pneumoniae PCR Adenovirus (PCR) B.parapertussis DNA PCR Coronavirus OC43 (PCR) Coronavirus HKU1 (PCR) Coronavirus 229E (PCR) SARS-CoV-2 (PCR) Coronavirus NL63 (PCR) Human Metapneumovir PCR Influenza Type A (PCR) Influenza Type B (PCR) M. pneumoniae (PCR) Parainfluenza 1 (PCR) Parainfluenza 2 (PCR) Parainfluenza 3 (PCR) Parainfluenza 4 (PCR) RSV (PCR) Entero/Rhino (PCR) [facility] Medical History Depression Gout History of diverticulitis History of radiation therapy History of prostate cancer History of TIA (transient ischemic attack) Hypertension (11/14/14) Gout (11/14/14) Surgical History History of left knee surgery History of tonsillectomy Family History Mother Natural Father Hypertension [place] (myocardial infarction) Social History household members: significant other Smoking Status: Never smoker alcohol intake: current Assessment & Plan Assessment & Plan narrative: 79-year-old man with a complex history of possible seizure disorder presents with recurrent mild confusion, new onset atrial fibrillation, and possible acute coronary syndrome with acute ST segment changes and elevated BNP. Overall this is very confusing and potentially concerning presentation, with a possible stuttering evolving myocardial infarction and attendant risk of serious medical complications. His case is reviewed with Dr. Dolores Mackey to discuss possible transfer from the emergency department to an outside hospital with on-site Cardiology services including cardiac catheterization capability. Given that the patient has ruled out for myocardial infarction and presently has no overt referable cardiac symptoms, we discussed keeping the patient at this hospital, monitoring serial cardiac enzymes on telemetry and obtain echocardiography in the morning. The patient is heparinized for cardiac and neurologic indications, suspecting a possible shower embolic event in the setting of new onset atrial fibrillation. It is possible EKG changes may occur secondary to a neurologic event. The patient is admitted to ICU status for close monitoring and further evaluation and consider transfer to a higher level of care pending further studies detailed below. 1. Confusion presenting with mild disorientation and memory lapses this morning. Ruled out for stroke. Etiology unclear though he has had an extensive workup that has been unrevealing in the past and concluded that he has seizure disorder. There is a discrepancy in history from nursing admission regarding possible alcohol use, though the patient denies this. Continue to monitor particularly in the evening hours when he experienced increasing confusion. 2. New onset atrial fibrillation. Rate appears adequately controlled. Stop IV heparin and start Eliquis 5 mg b.i.d. for stroke prophylaxis. 3. Acute ischemic ST segment changes on EKG, with vague nonspecific transient chest pain and shoulder pain, normal troponin testing x3. Consider secondary neurologic EKG changes given unremarkable echocardiogram. No evidence of acute coronary syndrome clinically. 4. Elevated BNP. He was administered furosemide 20 mg IV in the emergency department. 5. Acute kidney injury, with elevated creatinine 1.31 mg/dL on admission, resolved. 6. Mild leukocytosis, resolved. No overt evidence of infection. Urinalysis and PCR panel negative. 7. Seizure disorder. Continue routine Keppra. Prior history is vague and therapy appeared to be empiric. 8. Hypertension. Adequately controlled. Continue routine medications 9. Gout. Continue routine medication. 10. Essential tremor. Continue propranolol. 11. Code status: Full code. Reviewed and confirmed with patient on admission. Plan: -monitor on telemetry -Eliquis 5 mg b.i.d. -continue routine medications otherwise -possible discharge home tomorrow if doing well -full code Time-Based Coding :: [TOTAL MINUTES] spent with patient and on the chart (including review of chart, obtaining history, exam, reviewing outside data, placing orders, documenting exam and treatment plan, and counseling patient) on [DATE]. Quality VTE Deep Vein Thrombosis/Pulmonary Embolism Present on Admission: No IH PROFEE Charge codes Subsequent inpatient/observation care: 26663
[2024-03-04] MEDS: APIXABAN 5 MG TABLET PO (20:46)
[2024-03-05] VITALS (17 sets, daily range): BP systolic 105–156; BP diastolic 53–76; PULSE 67–75; RESP 20–27; TEMP 36.6–37.2; O2SAT 95
[2024-03-05 05:31] LABS: Add Manual Diff / Slide Review NO; Basophils Absolute Auto 0 /uL (0-100); Basophils Percent Auto 0.4 % (0-2); Eosinophils Absolute Auto 100 /uL (0-450); Eosinophils Percent Auto 1.8 % (2-4); Hematocrit 38.5 % (41-53); Hemoglobin 12.9 g/dL (13.5-17.5); Lymphocytes Absolute Auto 1400 /uL (1100-4500); Lymphocytes Percent Auto 16.9 % (25-40); Mean Corpuscular HGB Conc 33.7 % (30-36); Mean Corpuscular Hemoglobin 32.1 PG (26-34); Mean Corpuscular Volume 95.4 fL (80-100); Monocytes Absolute Auto 1100 /uL (0-900); Monocytes Percent Auto 13.4 % (3-14); Neutrophils Absolute Auto 5700 /uL (1500-7000); Neutrophils Percent Auto 67.5 % (50-75); Platelet Count 194 X10^3/uL (150-400); Red Blood Cell Count 4.03 X10^6/uL (4.5-5.9); Red Cell Distribution Width 13.8 % (11.6-14.8); White Blood Cell Count 8.4 X10^3/uL (4.5-11.0)
[2024-03-05 05:46] LABS: BUN Creatinine Ratio 23.3 (6-22); Blood Urea Nitrogen 27 mg/dL (9-20); Calcium 9.1 mg/dL (8.4-10.2); Carbon Dioxide 24 mmol/L (22-32); Chloride 104 mmol/L (98-107); Estimated Glomerular Filt Rate > 60 mL/min (>60); Glucose 94 mg/dL (80-110); HEMOLYSIS < 15 (0-50); Potassium 4.2 mmol/L (3.4-5.1); Sodium 136 mmol/L (137-145)
[2024-03-05 05:56] LABS: Troponin I < 0.012 ng/mL (0.01-0.034)
--- NOTE | 2024-03-05 06:24 | PC.NURSE ---
Orientation continues to fluctuate. Oriented to person and able to talk extensively about his life, though with pauses where he stated, I forget my train of thought a lot Not oriented to place or date. Impulsive so is on a bed and chair alarm for safety. Used walker in the garduno but able to move around room without walker. Incontinent of stool and urine overnight. Briefs in place. Did void to toilet as well. Some fine crackles noted in R base. Pt was able to speak with his significant other last night. He is looking forward to working with PT today
[2024-03-05] MEDS: carvediloL 12.5 MG TABLET PO (08:16)
[2024-03-05] MEDS: PROPRANOLOL 10 MG TABLET 60 MG PO (08:17)
[2024-03-05] MEDS: POTASSIUM CHLORIDE 10 MEQ TAB PO (08:17)
[2024-03-05] MEDS: buPROPion XL 150 MG TAB 300 MG PO (08:17)
[2024-03-05] MEDS: levETIRAcetam 250 MG TABLET 500 MG PO (08:18)
[2024-03-05] MEDS: allopurinoL 100 MG TABLET 300 MG PO (08:18)
[2024-03-05] MEDS: AMLODIPINE 5 MG TABLET 10 MG PO (08:18)
[2024-03-05] MEDS: APIXABAN 5 MG TABLET PO (08:19)
[2024-03-05] MEDS: SODIUM CHLORIDE 0.9% FLUSH 10 ML IV (08:19)
--- NOTE | 2024-03-05 08:42 | P.PN_ITS ---
Subjective Subjective Interval history: Summary: 79-year-old man from [facility] under the primary care of Dr. Jerica Munoz reports 2 days of increasing weakness, chest pain, shortness of breath and worsening memory. The patient's partner had reported that he appeared confused, stating that he came over to watch a soccer game at 6:30 a.m. in the morning, despite her having told him repeatedly that it did not start until 330 in the afternoon. He reportedly had some confusion findings room. He describes 6 to 7/10 chest pain occurring about 8 times last night, typically after deep breathing or coughing, lasting 10-15 seconds and then abating. He has also had shoulder and neck pain for the past 2 weeks that he states was due to a fall, and has been applying lidocaine patches to the neck and right shoulder area. He provides history to this provider as his partner has left the emergency department. He denies a prior history of cardiac disease. He was noted to be in atrial fibrillation in the emergency department. New [address] segment elevations in leads 1, aVL, V5 and V6 are noted, with a normal troponin on presentation and a repeat troponin obtained also returning normal. His BNP is elevated but he denies overt symptoms of shortness of breath, orthopnea, paroxysmal nocturnal dyspnea or lower extremity edema. he recounts a long complicated history of a workup for memory loss about 1 year ago at a hospital in [place], and follow up with the neurologist that ultimately led him to be placed on Keppra for possible seizure disorder. He was told he could not drive for 6 months after this was started, which she states is just about to elapse, and he had been hoping to return to driving at this point. At the present time in the emergency department he denies chest pain or shortness of breath. Interval history: The patient is sitting up appears comfortable denies chest pain this morning. He became agitated and confused overnight. He told the evening intake nurse that he drinks 3 alcoholic beverages daily though states that he has not drunk alcohol in over 1 year today. S: Exam Vital Signs (past 8 hours): - 03/05/24 01:00 03/05/24 02:00 03/05/24 03:00 Temperature Pulse Rate 71 71 72 Respiratory Rate 25 H 24 20 Blood Pressure 131/60 114/66 118/53 L Pulse Oximetry 95 95 95 Oxygen Flow Rate 0 0 0 08/26/24 04:00 03/05/24 04:00 03/05/24 05:00 Temperature 98.5 F Pulse Rate 75 74 Respiratory Rate 20 24 Blood Pressure 112/61 Pulse Oximetry 95 95 Oxygen Flow Rate 0 0 03/05/24 05:00 03/05/24 06:00 03/05/24 07:00 Temperature Pulse Rate 74 72 Respiratory Rate 22 21 Blood Pressure 112/71 128/64 Pulse Oximetry 95 Oxygen Flow Rate 0 03/05/24 07:00 03/05/24 08:00 03/05/24 08:00 Temperature Pulse Rate 75 Respiratory Rate 24 Blood Pressure 121/60 108/57 L Pulse Oximetry Oxygen Flow Rate 03/05/24 08:16 Temperature Pulse Rate 73 Respiratory Rate Blood Pressure 127/62 Pulse Oximetry Oxygen Flow Rate Oxygen Delivery Method Room Air Oxygen Flow Rate 0 Narrative Exam Narrative: NAD, Lungs are clear Heart is regular Abdomen is soft, NT No leg edema Objective ECG Impression: Left axis deviation Moderate voltage criteria for LVH, may be normal variant ( R in aVL , [place] product ) ST elevation, consider early repolarization, pericarditis, or injury Imaging Multiple studies:: Radiologist's impression: Chest x-ray: Radiologist's impression: Limited portable chest examination, without a significant cardiopulmonary abnormality identified. CT scan - head: Radiologist's impression: Noncontrast head CT within normal limits for age. CTA head and neck: Radiologist's impression: No significant intracranial arterial abnormality is seen. No significant abnormality is seen within the arteries of the neck. If there is strong clinical suspicion for an acute stroke, please consider a brain MRI for further evaluation, as it is more sensitive (assuming that there is no contraindication to MRI). Labs 03/05/24 05:03 03/05/24 05:03 Labs: Laboratory Results - last 24 hr 03/04/24 03/05/24 12:10 05:03 WBC 8.4 RBC 4.03 L Hgb 12.9 L Hct 38.5 L MCV 95.4 MCH 32.1 MCHC 33.7 RDW 13.8 Plt Count 194 Neut % (Auto) 67.5 Lymph % (Auto) 16.9 L [place] % (Auto) 13.4 Eos % (Auto) 1.8 L Baso % (Auto) 0.4 Neut # (Auto) 5700 Lymph # (Auto) 1400 [place] # (Auto) 1100 H Eos # (Auto) 100 Baso # (Auto) 0 APTT 52 H Sodium 136 L Potassium 4.2 Chloride 104 Carbon Dioxide 24 BUN 27 H Creatinine 1.16 Estimated GFR > 60 BUN/Creatinine Ratio 23.3 H Glucose 94 Calcium 9.1 Troponin I < 0.012 [facility] Medical History Depression Gout History of diverticulitis History of radiation therapy History of prostate cancer History of TIA (transient ischemic attack) Hypertension (11/14/14) Gout (11/14/14) Surgical History History of left knee surgery History of tonsillectomy Family History Mother Natural Father Hypertension [place] (myocardial infarction) Social History household members: significant other Smoking Status: Never smoker alcohol intake: current Assessment & Plan Assessment & Plan narrative: 1. Acute encephalopathy, present on admission and active. Ruled out for stroke. Etiology unclear though he has had an extensive workup that has been unrevealing in the past and concluded that he has seizure disorder. There is a discrepancy in history from nursing admission regarding possible alcohol use, though the patient denies this. Continue to monitor particularly in the evening hours when he experienced increasing confusion. 2. New onset atrial fibrillation, present on admission and active. Rate appears adequately controlled. Stop IV heparin and start Eliquis 5 mg b.i.d. for stroke prophylaxis. 3. Acute ischemic ST segment changes on EKG, with vague nonspecific transient chest pain and shoulder pain, normal troponin testing x3, present on admission and active.Unremarkable echocardiogram. No evidence of acute coronary syndrome clinically. 4. Elevated BNP, present on admission and active. He was administered furosemide 20 mg IV in the emergency department. 5. Acute kidney injury, with elevated creatinine 1.31 mg/dL. Present on admission, resolved. 6. Mild leukocytosis, resolved. No overt evidence of infection. Urinalysis and PCR panel negative. 7. Seizure disorder. Continue routine Keppra. Prior history is vague and therapy appeared to be empiric. 8. Hypertension. Adequately controlled. Continue routine medications 9. Gout. Continue routine medication. 10. Essential tremor. Continue propranolol. 11. Code status: Full code. Reviewed and confirmed with patient on admission. Plan: -monitor on telemetry -Eliquis 5 mg b.i.d. Time-Based Coding :: 20 min spent with patient and on the chart (including review of chart, obtaining history, exam, reviewing outside data, placing orders, documenting exam and treatment plan, and counseling patient) on 03/05. Quality VTE Deep Vein Thrombosis/Pulmonary Embolism Present on Admission: No
--- NOTE | 2024-03-05 11:39 | PT.IIE ---
Surgical History (Last Reviewed 03/05/24 @ 08:44 by Garry Ruiz MD) History of left knee surgery History of tonsillectomy Medical History (Last Reviewed 03/05/24 @ 08:44 by Garry Ruiz MD) Depression Gout (11/14/14) Gout History of diverticulitis History of prostate cancer History of radiation therapy History of TIA (transient ischemic attack) Hypertension (11/14/14) Physical Therapy Inpatient Evaluation/Re-Eval M1 PT/OT-IP Prior Functional Status Start: 03/05/24 11:01 Freq: NEEDED Status: Active Protocol: Document 03/05/24 11:00 MB (Rec: 03/05/24 11:39 MB [id number]) Medical Review Prior Functional Status Medical History Reviewed Yes Diet/Fluid Consistency Regular Communication WNLs, unsure baseline diet Mobility and Gait I, has a walking stick he does not use, occ trips on his carpet Activities of Daily Living and IADL's I, denies outright fall. States he has not driven in 1 year d/t cognitive changes. Social History Household Members significant other Living Arrangements House Number of Floors (Floors) One Floor Number of Stairs To Enter/Railing? 6 steps with 2 rails Home Environment Standard Height Toilet,Tub/ Shower Home Equipment Grab Bars Near Toilet,Grab Bars In Shower Employment Status Retired M2 PT-IP Current Condition Start: 03/05/24 11:01 Freq: NEEDED Status: Active Protocol: Document 03/05/24 11:00 MB (Rec: 03/05/24 11:39 MB [id number]) Physical Therapy Current Condition Current Condition Evaluation Date 03/05/24 Treatment Diagnosis AMS M3 PT-IP Subjective Start: 03/05/24 11:01 Freq: NEEDED Status: Active Protocol: Document 03/05/24 11:00 MB (Rec: 03/05/24 11:39 MB [id number]) Subjective Physical Therapy Visit Type Type Initial Evaluation Visit Start Time 11:00 Visit Stop Time 11:30 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 Patient Questionnaires Patient Questionnaires SLUMS score 16 Therapy Pain Assessment Pain When Pain Assessed At Rest Pain Present Pain Present Denied Pain M4 PT-IP Mobility and Gait Start: 03/05/24 11:01 Freq: NEEDED Status: Active Protocol: Document 03/05/24 11:00 MB (Rec: 03/05/24 11:39 MB [id number]) PT-Bed Mobility Assessment Rolling Level of Assist Independent Supine to Sit Supine to Sit Independent,Bedrails Scooting Scooting to Edge of Bed Independent Scooting Up and Down in Bed Independent PT-Transfer Assessment Sit to and From Stand Sit to and from Stand Standby Assistance,1 Person Assistance,Use of Upper Extremities Equipment Transfer Assistive Device Gait Belt Orthotic/Prosthetic Devices or Brace: No Transfers Transfer Destination Chair Transfer Technique Ambulation Transfer Ability Level of Assist Standby Assistance Comments Mobility Comments Some forward leaning/pitching with gait and imbalance Gait Assessment Gait Gait Assistance Required: Standby Assistance Distance (Feet) 150 Able to Maintain Weight Bearing Status Yes During Gait Assistive Devices Assistive Device Gait Belt Orthotic/Prosthetic Devices or Brace: No Gait Deviations General Gait Pattern Decreased Stride Length,Flexed Trunk,Wide Based Gait Factors Limiting Gait Function Factors Limiting Gait Function Poor Balance Comments Gait Comments No LOB with gait 150'x2 and does have trouble with head turns d/t cervical limitations and challenges with backwards stepping as well Stair Climbing Assessment Evaluation Level of Assist On Stairs Standby Assistance Devices Stair Climbing Assistive Devices Left Railing,Right Railing Technique/Endurance Stair Climbing Direction Ascend and Descend Stair Climbing Technique Step Over Step Number of Steps Climbed 3 Query Text: Stair Climbing Set # Repetitions (reps) 1 PT-Balance Assessment Sitting Balance and Reactions Static Sitting Balance Ability Normal Dynamic Sitting Balance Ability Good Standing Balance and Reactions Static Standing Balance Ability Good Dynamic Standing Balance Ability Fair M5 PT-IP Objective Assessments Start: 03/05/24 11:01 Freq: NEEDED Status: Active Protocol: Document 03/05/24 11:00 MB (Rec: 03/05/24 11:39 [id number]) Orientation Orientation/Cognition Level of Alertness Confusional State Orientation Name,Age,Birthday,Month,Date, Year,Day of Week Language Function Ability No Deficits Noted Safety Awareness Decreased Safety Awareness Memory Description Short Term Impaired,Penitentiary Impaired Gross Range of Motion Upper Extremity ROM Assessment Within Functional Limits Lower Extremity ROM Assessment Within Functional Limits Strength Upper Extremity Strength Assessment Within Functional Limits Lower Extremity Strength Assessment Within Functional Limits M7 PT-IP Assessment and Plan Start: 03/05/24 11:01 Freq: NEEDED Status: Active Protocol: Document 03/05/24 11:00 MB (Rec: 03/05/24 11:39 MB [id number]) PT Summary Assessment and Plan Potential Rehabilitation Potential Good Status of Condition at Evaluation Evolving Summary Impairments Balance,Cognition,Bed Mobility ,Transfers,Gait,Activity Tolerance Progress Towards Goals Progressing Toward Goals Assessment Summary Pt is a gentleman presenting with minor changes in balance today and no true LOB with gait in hallway and on steps. He has trouble with backwards walking and head turns with gait. SLUMS score is 16. Overall, SBA for mobility. Recommend superv from significant other at d/c and up with nsg assist/superv. No further acute PT needs. Frequency of Treatment Frequency Of Treatment Discharge Recommendations To Nursing Amount of Assist Needed Standby Assistance Discharge Recommendations PT Discharge Recommendations Home with Assistance Transportation Needs at Discharge Private Vehicle
--- NOTE | 2024-03-05 14:02 | P.DS_ITS ---
History of Present Illness History of Present Illness Chief complaint: memory issues, weakness, sent by PCP Narrative: From H&P: 79-year-old man from [facility] under the primary care of Dr. Jerica Munoz reports 2 days of increasing weakness, chest pain, shortness of breath and worsening memory. The patient's partner had reported that he appeared confused, stating that he came over to watch a soccer game at 6:30 a.m. in the morning, despite her having told him repeatedly that it did not start until 330 in the afternoon. He reportedly had some confusion findings room. He describes 6 to 7/10 chest pain occurring about 8 times last night, typically after deep breathing or coughing, lasting 10-15 seconds and then abating. He has also had shoulder and neck pain for the past 2 weeks that he states was due to a fall, and has been applying lidocaine patches to the neck and right shoulder area. He provides history to this provider as his partner has left the emergency department. He denies a prior history of cardiac disease. He was noted to be in atrial fibrillation in the emergency department. New [address] segment elevations in leads 1, aVL, V5 and V6 are noted, with a normal troponin on presentation and a repeat troponin obtained also returning normal. His BNP is elevated but he denies overt symptoms of shortness of breath, orthopnea, paroxysmal nocturnal dyspnea or lower extremity edema. he recounts a long complicated history of a workup for memory loss about 1 year ago at a hospital in [place], and follow up with the neurologist that ultimately led him to be placed on Keppra for possible seizure disorder. He was told he could not drive for 6 months after this was started, which she states is just about to elapse, and he had been hoping to return to driving at this point. At the present time in the emergency department he denies chest pain or shortness of breath. Discharge Providers Provider Date of admission: 03/03/24 17:51 Discharge Date: 03/05/24 Primary care physician: Jerica Munoz MD Consults: 03/04/24 17:54 Consult to Physical Therapy Evaluate & Treat Comment: Physician Instructions: Evaluate and Treat Discharge provider: Garry Ruiz MD Summary Hospital Course Discharge Diagnosis: 1. Transient encephalopathy with mild disorientation and memory lapses this morning. 2. New onset atrial fibrillation. Rate appears adequately controlled. 3. Abnormal EKG with normal troponin testing x2 and normal ECHO. 4. Acute kidney injury, with elevated creatinine 1.31 mg/dL on admission. 5. Mild leukocytosis. No overt evidence of infection. Urinalysis and PCR panel negative. Repeat WBC tomorrow. 6. Seizure disorder. Continue routine Keppra. Prior history is vague and therapy appeared to be empiric. 7. Hypertension. Adequately controlled. Continue routine medications 8. Gout. Continue routine medication. 9. Essential tremor. Continue propranolol. Hospital Course: He was admitted with transient confusion which resolved without intervention. Brain MRI was unremarkable, no evidence of acute stroke. ECG did reveal atrial fibrillation. Echo revealed and confirmed atrial fibrillation with a normal structural heart otherwise an EF of 50-55%. Right ventricle systolic pressure at 34 mm. Right atrial pressure 8 mm. We have discharge he was at baseline and denied any dyspnea. He also was relatively appropriate conversationally and detailed his history of subsequent gradual memory loss over the last year. SLUMS score 11/30. He has had recent neuropsychiatric testing as well. He recounted a series of episodes that appeared to be associated with sequential worsening of his cognition. The patient appears to be at or near his baseline on the day of discharge. The only new finding was atrial fibrillation. He does meet criteria for anticoagulation, he was going to see his doctor, Dr. Munoz within the next couple of days and they will discuss the safety of anticoagulation which would generally be recommended with his risk factors. Status at Discharge Cognitive/behavioral status at discharge: at baseline, oriented Functional status at discharge: independent ambulation Overall status at discharge: patient is back to baseline Time Spent with Patient Time spent: Greater than 30 minutes Exam Vital Signs (past 8 hours): - 03/05/24 07:00 03/05/24 07:00 03/05/24 07:00 Temperature Pulse Rate 72 Respiratory Rate 21 Blood Pressure 121/60 Pulse Oximetry Oxygen Delivery Method Room Air Oxygen Flow Rate 03/05/24 08:00 03/05/24 08:00 03/05/24 08:12 Temperature Pulse Rate 75 72 Respiratory Rate 24 22 Blood Pressure 108/57 L Pulse Oximetry Oxygen Delivery Method Oxygen Flow Rate 03/05/24 08:12 03/05/24 08:16 03/05/24 09:00 Temperature 97.8 F Pulse Rate 73 Respiratory Rate Blood Pressure 127/62 127/62 Pulse Oximetry Oxygen Delivery Method Oxygen Flow Rate 08/26/24 09:00 03/05/24 10:00 03/05/24 11:00 Temperature Pulse Rate 75 67 67 Respiratory Rate 23 26 H 23 Blood Pressure Pulse Oximetry Oxygen Delivery Method Oxygen Flow Rate 03/05/24 12:00 03/05/24 12:16 03/05/24 12:16 Temperature Pulse Rate 72 71 Respiratory Rate 27 H 26 H Blood Pressure 156/76 H Pulse Oximetry Oxygen Delivery Method Oxygen Flow Rate 03/05/24 12:27 Temperature 97.8 F Pulse Rate Respiratory Rate Blood Pressure Pulse Oximetry 95 Oxygen Delivery Method Oxygen Flow Rate 0 Oxygen Delivery Method Room Air Oxygen Flow Rate 0 Narrative Exam Narrative: NAD, alert and oriented. Fluent speech. Lungs are clear, normal rate and effort. Heart is irregular, no murmur gallop or rub. Abdomen is soft, non distended. Extremities are free of edema. Objective ECG Impression: Atrial fibrillation. Imaging Multiple studies:: Radiologist's impression: Brain MRI: No acute intracranial process is seen. Echo: The patient was in atrial fibrillation with heart rates between 64-84 bpm during the exam. Left ventricular wall thickness is mildly increased. The ejection fraction is estimated to be 50-55%. Diastolic function could not be accurately assessed due to atrial fibrillation. The left atrium is moderately dilated. The right ventricle is normal size. Right ventricular systolic function is mildly reduced. The right atrium is mildly dilated. There is mild mitral regurgitation. There is mild aortic regurgitation. There is mild tricuspid regurgitation. The right ventricular systolic pressure is estimated to be at least 34 mmHg based on an estimated right atrial pressure of 8 mm Hg. The ascending aorta is mildly enlarged, 4.0 cm. Head and neck CTA: No significant intracranial arterial abnormality is seen. No significant abnormality is seen within the arteries of the neck. If there is strong clinical suspicion for an acute stroke, please consider a brain MRI for further evaluation, as it is more sensitive (assuming that there is no contraindication to MRI). Head CT: Noncontrast head CT within normal limits for age. Chest x-ray: Limited portable chest examination, without a significant cardiopulmonary abnormality identified. Labs 03/05/24 05:03 03/05/24 05:03 Labs: Laboratory Results - last 24 hr 03/05/24 05:03 WBC 8.4 RBC 4.03 L Hgb 12.9 L Hct 38.5 L MCV 95.4 MCH 32.1 MCHC 33.7 RDW 13.8 Plt Count 194 Neut % (Auto) 67.5 Lymph % (Auto) 16.9 L Harvey % (Auto) 13.4 Eos % (Auto) 1.8 L Baso % (Auto) 0.4 Neut # (Auto) 5700 Lymph # (Auto) 1400 Harvey # (Auto) 1100 H Eos # (Auto) 100 Baso # (Auto) 0 Sodium 136 L Potassium 4.2 Chloride 104 Carbon Dioxide 24 BUN 27 H Creatinine 1.16 Estimated GFR > 60 BUN/Creatinine Ratio 23.3 H Glucose 94 Calcium 9.1 Troponin I < 0.012 [facility] Medical History Depression Gout History of diverticulitis History of radiation therapy History of prostate cancer History of TIA (transient ischemic attack) Hypertension (11/14/14) Gout (11/14/14) Surgical History History of left knee surgery History of tonsillectomy Family History Mother Natural Father Hypertension [place] (myocardial infarction) Social History household members: significant other Smoking Status: Never smoker alcohol intake: current Discharge Assessment & Plan Assessment and Plan Assessment: 1. Transient encephalopathy with mild disorientation and memory lapses this morning. 2. New onset atrial fibrillation. Rate appears adequately controlled. 3. Abnormal EKG with normal troponin testing x2 and normal ECHO. 4. Acute kidney injury, with elevated creatinine 1.31 mg/dL on admission. 5. Mild leukocytosis. No overt evidence of infection. Urinalysis and PCR panel negative. Repeat WBC tomorrow. 6. Seizure disorder. Continue routine Keppra. Prior history is vague and therapy appeared to be empiric. 7. Hypertension. Adequately controlled. Continue routine medications 8. Gout. Continue routine medication. 9. Essential tremor. Continue propranolol. Plan of Treatment: Discharge home, close follow up with Dr. Munoz. Discussion regarding the pros and cons of anticoagulation for his new atrial fibrillation. His previous advice of do not drive is reinforced. Discharge Plan Discharge Plan Patient Disposition: Home Provider Discharge Comment: Stable for discharge home to the care of his partner, no change in medications. Discharge orders & Medications Prescriptions: Continued levetiracetam 500 mg tablet 500 mg PO BID clopidogrel 75 mg tablet 75 mg PO DAILY sertraline 50 mg tablet 50 mg PO DAILY albuterol sulfate 90 mcg/actuation HFA aerosol inhaler 2 puff inhalation Q4-6H PRN (Reason: Congestion) allopurinol 300 mg tablet 300 mg PO DAILY amlodipine 10 mg tablet 10 mg PO DAILY bupropion HCl 300 mg tablet extended release 24 hr 300 mg PO DAILY carvedilol phosphate 40 mg capsule, ER multiphase 24 hr 40 mg PO BID Rx Instructions: must administer with a meal/food propranolol 120 mg capsule,extended release 24 hr 120 mg PO DAILY Medication counseling provided by Pharmacist: No Follow up/Referrals: Jerica Munoz MD [Primary Care Provider] - Discharge Health Status Multidrug resistant organism: No MDRO Diet/Activity/Treatments Diet: Diet as Tolerated Activity: As tolerated. No driving. Visit Report/Discharge Packet Instructions: Mild Cognitive Impairment, DI for Atrial Fibrillation Stand Alone Forms: Patient Portal/API Discharge Data Primary Care Provider: Jerica Munoz Quality VTE Deep Vein Thrombosis/Pulmonary Embolism Present on Admission: No
--- NOTE | 2024-03-05 15:52 | CM.DPC ---
DCP Discharge Home Per MD, pt is medically stable to d/c home with Sig Other and outpt f/u and no identified barriers to discharge. Per PT, SLUMS and some slight balance issues and recommending home with outpt f/u. Per RN, Sig Other bedside and discharge instructions provided and no concerns noted. Plan: Patient to d/c home today via Sig Other POV and outpt f/u and no further SW needs at this time. Roma Odonnell MSW
== END 2024-03-05 14:35 | disposition home or self-care (01) | DRG 72 ==
LOC: ED 17:49 → AC 17:52 → ICU 19:56
PROVIDERS: Emergency Medicine; Admitting Provider Internal Medicine; Emergency Provider Emergency Medicine; PCP Family Medicine; Referring Provider Emergency Medicine; Visit Provider Internal Medicine
DX: G93.49 Other encephalopathy (principal); I48.91 Unspecified atrial fibrillation; R79.89 Other specified abnormal findings of blood chemistry; G40.909 Epilepsy, unspecified, not intractable, without status epilepticus; I10 Essential (primary) hypertension; M10.9 Gout, unspecified; G25.0 Essential tremor; R94.31 Abnormal electrocardiogram [ECG] [EKG]; D72.829 Elevated white blood cell count, unspecified; F32.A Depression, unspecified; Z79.02 Long term (current) use of antithrombotics/antiplatelets
CPT/HCPCS: 36415; 70450; 70496; 70498; 70551; 71045; 80048; 80053; 81003; 81015; 82550; 83690; 83735; 83880; 84484; 85007; 85025; 85610; 85730; 87633; 87797; 93005; 93306; 96365; 97161; 97535; 99284; J1644; Q9967

== ENCOUNTER 2024-03-12 10:41 | Emergency (ER) | payer MEDICARE, SELFPAY ==
[2024-03-03 18:06] VITALS: BMI 28.1
[2024-03-12] VITALS (13 sets, daily range): BP systolic 111–139; BP diastolic 57–90; PULSE 59–67; RESP 17–23; TEMP 36.8; O2SAT 96–98; BMI 26.6
--- NOTE | 2024-03-12 10:57 | DI.RAD.S_ITS ---
PROCEDURE: XR RIBS RT MIN 3V W CXR 1V INDICATIONS: Fall with right rib pain TECHNIQUE: 2 views of the ribs were acquired, along with a single view chest. COMPARISON: None. FINDINGS: Surgical changes and devices: None. Bones and chest wall: Acute, displaced right lateral 6th rib fracture. Acute displaced right posterior 7th rib fracture. Query age indeterminate right posterior 3rd and 4th rib fractures favored to be chronic given callus formation. No suspicious bony lesions. Overlying soft tissues appear unremarkable. Lungs and pleura: No pleural effusions or pneumothorax. Lungs appear clear. Mediastinum: Mediastinal contours appear normal. Heart size is normal. Aortic arch is calcified, indicating atherosclerosis. IMPRESSION: 1. Acute displaced right 6th and 7th rib fractures. Age indeterminate right posterior 3rd and 4th rib fractures, favored to be chronic. 2. No pneumothorax or acute cardiopulmonary process. Dictated by: Eduard Garcia M.D. on 03/12/2024 at 10:54 Approved by: Eduard Garcia M.D. on 03/12/2024 at 11:00
--- NOTE | 2024-03-12 12:25 | ED.GENADULT ---
HPI - General Adult General Chief complaint: Trauma Stated complaint: GLF, Thinners, R Side Pain Time Seen by Provider: 03/12/24 12:24 Source: patient, family, RN notes reviewed and old records reviewed Mode of arrival: Ambulatory Limitations: no limitations History of Present Illness HPI narrative: 79-year-old male history of hypertension, atrial fibrillation, gout on Plavix daily patient states he went into the bathroom early this morning at about 6:00 a.m., he would left his clothes on the tile in the floor and for gotten got tangled up on them on his way to the toilet and twisted falling onto his right side over the edge of the bathtub. Patient states has had persistent pain since then. States pain is on the right ribs. Denies any pain in the side. Denies hitting his head denies any neck pain, denies any midline vertebral pain. Patient states painful to take deep breath. No shortness of breath other than being uncomfortable. No nausea or vomiting no other GI or urinary symptoms. Denies any injuries to his arms or legs other than some abrasions. Patient has lidocaine patches on pace which he states has been helpful. States there might be little bruising but did not really appreciate any. He states Plavix as his only anticoagulant. States he had a prior mass removed from his abdomen remotely. Denies any other surgeries. No tobacco, alcohol daily none this morning. No recreational drugs. He is accompanied by his partner. Patient lives on [facility]. T patient is unsure if his tetanus is up-to-date, last noted in EMR is from 2011. Related Data Home Medications Medication Instructions Recorded Confirmed albuterol sulfate 90 mcg/actuation 2 puff inhalation Q4-6H PRN 10/13/20 03/05/24 aerosol inhaler Congestion allopurinol 300 mg tablet 300 mg PO DAILY 10/13/20 03/05/24 amlodipine 10 mg tablet 10 mg PO DAILY 10/13/20 03/05/24 bupropion HCl 300 mg 24 hr tablet, 300 mg PO DAILY 10/13/20 03/05/24 extended release carvedilol phosphate 40 mg 40 mg PO BID 10/13/20 03/05/24 capsule,[id number] multiphase propranolol 120 mg capsule,24 120 mg PO DAILY 10/13/20 03/05/24 hr,extended release clopidogrel 75 mg tablet 75 mg PO DAILY 03/05/24 03/05/24 levetiracetam 500 mg tablet 500 mg PO BID 03/05/24 03/05/24 sertraline 50 mg tablet 50 mg PO DAILY 03/05/24 03/05/24 Previous Rx's Medication Instructions Recorded tramadol 50 mg tablet 50 mg PO Q6H PRN pain #14 tabs 03/12/24 Allergies Allergy/AdvReac Type Severity Reaction Status Date / Time erythromycin base Allergy Intermediate TEARS UP Verified 03/03/24 18:05 [ERYTHROMYCIN BASE] MY GUT gabapentin AdvReac Verified 03/03/24 18:05 Review of Systems Review of Systems ROS Unobtainable: All systems reviewed & are unremarkable except as noted in HPI and below Patient History Medical History Depression Gout History of diverticulitis History of radiation therapy History of prostate cancer History of TIA (transient ischemic attack) Hypertension (11/14/14) Gout (11/14/14) Surgical History History of left knee surgery History of tonsillectomy Family History Mother Natural Father Hypertension MT (myocardial infarction) Social History household members: significant other Smoking Status: Never smoker alcohol intake: current Smoking Status: Never smoker alcohol intake frequency: 3 or more drinks per day Substance Use Type: does not use Exam Narrative Exam Narrative: GEN: Patient appears in [id number] distress. HEAD: No evidence of trauma, no raccoon/Glover sign. NECK: Nontender, painless range of motion, trachea midline Negative Nexus criteria, no midline line tenderness, distracting injury, altered mental status, neuro deficit, recent EtOH. EYES: PERRLA, EOMI ENT: External inspection normal, trachea is midline, TM's are normal no hemotypanum, Nares are clear, no septal hematoma, no dental or oral injury, airway is normal and with normal occlusion, No bony tenderness RESP: Chest is tender on the right anterior chest as well as right posterior around ribs 456. No obvious ecchymosis. And has symmetric movement, no ecchymosis, breath sounds are normal no crackles, wheezes or rales, no tachypnea accessory muscle use. CVS: Heart sounds are normal, no murmur noted, No JVD. ABG/GI: Nontender, soft, normal bowel sounds, no distention, no organomegaly, pelvic rock is negative NEURO: Oriented AOx3, neuro is grossly intact, sensation and motor is normal all 4 extremities moving, cranial nerves II through XII are intact, GCS is 15 PSYCH: Normal mood and affect SKIN: Patient has some small abrasions on extremities, warm and dry, no crepitus and without decubitus BACK: No CVA tenderness, no vertebral tenderness, no step-off's, no crepitus EXT: Atraumatic, hips are nontender, no pedal edema, normal color and temperature, normal range of motion of extremities with normal tendon exam, 2+ pulses in all four extremities Initial Vital Signs Initial Vital Signs: Vital Signs Pulse Rate 62 03/12/24 10:49 Respiratory Rate 23 03/12/24 10:49 Blood Pressure 139/65 03/12/24 10:49 Pulse Oximetry 98 03/12/24 10:49 Course Orders Ordered: ED Orders 03/12/24 10:57 XR ribs RT min 3V w CXR1V Stat 03/12/24 12:35 CT chest abd pel w con Stat 03/12/24 12:50 CBC Auto Diff [Complete Blood Count AUTO DIFF] Stat CMP [Comprehensive Metabolic Panel] Stat PTT Partial Thromboplastin Musa Stat Prothrombin Time INR Stat Discontinued Medications Diphtheria/Tetanus/Acell Pertussis (Tet,Diph,Pertuss(Acell),Vac/Pf 0.5 Ml Syringe) 0.5 ml IM .ONCE ONE Stop: 03/12/24 12:44 Last Admin: 03/12/24 13:38 Dose: 0.5 ml Documented By: SB Ketorolac Tromethamine (Ketorolac 30 Mg/Ml Vial) 15 mg IV NOW ONE Stop: 03/12/24 14:32 Last Admin: 03/12/24 14:41 Dose: 15 mg Documented By: SPF Tramadol HCl (Tramadol 50 Mg Tablet) 100 mg PO NOW ONE Stop: 03/12/24 15:18 Last Admin: 09/02/24 15:24 Dose: 100 mg Documented By: MARILEE Vital Signs Vital signs: Vital Signs - 8 hr 03/12/24 10:49 03/12/24 10:49 03/12/24 10:51 Temperature 98.3 F Pulse Rate 62 65 Respiratory Rate 23 22 Blood Pressure 139/65 139/65 Pulse Oximetry 98 98 Oxygen Delivery Method Room Air 03/12/24 11:00 03/12/24 11:00 03/12/24 11:14 Temperature Pulse Rate 65 67 Respiratory Rate 21 19 Blood Pressure 125/57 L Pulse Oximetry 98 97 Oxygen Delivery Method Room Air 03/12/24 11:14 03/12/24 11:30 03/12/24 11:30 Temperature Pulse Rate 63 Respiratory Rate 19 Blood Pressure 139/64 111/58 L Pulse Oximetry 98 Oxygen Delivery Method 03/12/24 12:00 03/12/24 12:00 03/12/24 12:30 Temperature Pulse Rate 64 Respiratory Rate 19 Blood Pressure 121/66 119/62 Pulse Oximetry 96 Oxygen Delivery Method 03/12/24 12:30 03/12/24 13:00 03/12/24 13:00 Temperature Pulse Rate 67 65 Respiratory Rate 22 17 Blood Pressure 113/59 L Pulse Oximetry 97 97 Oxygen Delivery Method Room Air 03/12/24 13:42 03/12/24 13:44 03/12/24 13:44 Temperature Pulse Rate 66 63 Respiratory Rate 22 Blood Pressure 137/90 Pulse Oximetry 96 98 Oxygen Delivery Method 03/12/24 14:00 03/12/24 14:00 03/12/24 14:30 Temperature Pulse Rate 60 65 Respiratory Rate 19 18 Blood Pressure 112/83 Pulse Oximetry 97 98 Oxygen Delivery Method Room Air 03/12/24 15:00 Temperature Pulse Rate 59 L Respiratory Rate 20 Blood Pressure Pulse Oximetry 98 Oxygen Delivery Method Medical Decision Making Lab Data 03/12/24 12:50 03/12/24 12:50 Labs: Lab Results 03/12/24 Range/Units 12:50 WBC 8.0 (4.5-11.0) X10^3/uL RBC 4.22 L (4.5-5.9) X10^6/uL Hgb 13.4 L (13.5-17.5) g/dL Hct 40.2 L (41-53) % MCV 95.2 (80-100) fL MCH 31.7 (26-34) PG MCHC 33.3 (30-36) % RDW 13.6 (11.6-14.8) % Plt Count 385 (150-400) X10^3/uL Neut % (Auto) 66.8 (50-75) % Lymph % (Auto) 18.6 L (25-40) % Laurens % (Auto) 12.2 (3-14) % Eos % (Auto) 1.9 L (2-4) % Baso % (Auto) 0.5 (0-2) % Neut # (Auto) 5300 (3329-5081) /uL Lymph # (Auto) 1500 (5302-4623) /uL Laurens # (Auto) 1000 H (0-900) /uL Eos # (Auto) 200 (0-450) /uL Baso # (Auto) 0 (0-100) /uL PT 14.7 H (9.4-12.5) SECONDS INR 1.3 (0.9-1.3) APTT 35 (25.1-36.5) SECONDS Sodium 135 L (137-145) mmol/L Potassium 4.5 (3.4-5.1) mmol/L Chloride 104 (98-107) mmol/L Carbon Dioxide 27 (22-32) mmol/L BUN 24 H (9-20) mg/dL Creatinine 1.13 (0.66-1.25) mg/dL Estimated GFR > 60 (>60) mL/min BUN/Creatinine Ratio 21.2 (6-22) Glucose 99 (80-110) mg/dL Calcium 9.1 (8.4-10.2) mg/dL Total Bilirubin 0.5 (0.2-1.3) mg/dL AST 29 (17-59) IU/L ALT 38 (<50) IU/L Alkaline Phosphatase 107 (38-126) U/L Total Protein 6.8 (6.3-8.2) g/dL Albumin 3.4 L (3.5-5.0) g/dL Globulin 3.4 (1.7-4.1) g/dL Albumin/Globulin Ratio 1.0 (1.0-2.8) Imaging Data Chest x-ray: Radiologist's Impression: Close Ribs X-Ray (Signed) Eduard Garcia - 03/12/24 Brain MRI (Signed) Wicho Beckford - 03/03/24 Echocardiogram Ultrasound (Signed) Ubaldo Mackeye - 03/03/24 Telemetry Strips 03/03/24 Head/Neck CTA (Signed) Wicho Beckford - 03/03/[address] (Signed) Wicho Beckford - 03/03/24 Chest X-Ray (Signed) Wicho Beckford - 03/03/24 Brain MRI (Signed) Salma Solorzano - 12/13/23 Telemetry Strips 04/08/22 Abdomen/Pelvis CT (Signed) ManciniArthur alcocer - 04/06/22 Abdomen/Pelvis CT (Signed) Salma Solorzano - 10/03/20 Lumbar Spine MRI (Signed) Anibal Bacon - 04/11/19 Pelvis MRI (Signed) Roberto Jimenez - 09/14/18 Bone Scan Nuclear Medicine (Signed) Maria Elena Navarro - 09/14/18 [place] [address] XRay Report Signed Patient: Eliel Ford MR#: [id number] : 1945 Acct:[id number] Age/Sex: 79 / M Date of Service: 03/12/24 Loc: ED Accession Number: [id number] Procedure: XR ribs RT min 3V w CXR1V Ordering Provider: Ayaka James D.O. PROCEDURE: XR RIBS RT MIN 3V W CXR 1V INDICATIONS: Fall with right rib pain TECHNIQUE: 2 views of the ribs were acquired, along with a single view chest. COMPARISON: None. FINDINGS: Surgical changes and devices: None. Bones and chest wall: Acute, displaced right lateral 6th rib fracture. Acute displaced right posterior 7th rib fracture. Query age indeterminate right posterior 3rd and 4th rib fractures favored to be chronic given callus formation. No suspicious bony lesions. Overlying soft tissues appear unremarkable. Lungs and pleura: No pleural effusions or pneumothorax. Lungs appear clear. Mediastinum: Mediastinal contours appear normal. Heart size is normal. Aortic arch is calcified, indicating atherosclerosis. IMPRESSION: 1. Acute displaced right 6th and 7th rib fractures. Age indeterminate right posterior 3rd and 4th rib fractures, favored to be chronic. 2. No pneumothorax or acute cardiopulmonary process. Dictated by: Eduard Garcia M.D. on 03/12/2024 at 10:54 Approved by: Eduard Garcia M.D. on 03/12/2024 at 11:00 CT chest/abd/pelvis: Radiologist's Impression: Eliel Ford??79??M??1945 ? Allergy/Adv: erythromycin base, gabapentin (More??) Close Chest/Abdomen/Pelvis CT (Signed) Shala Serrano - 03/12/24 Ribs X-Ray (Signed) Eduard Garcia - 03/12/24 Brain MRI (Signed) Wicho Beckford - 03/03/24 Echocardiogram Ultrasound (Signed) Dolores Mackey - 03/03/24 Telemetry Strips 03/03/24 Head/Neck CTA (Signed) Wicho Beckford - 03/03/[address] (Signed) Wicho Beckford - 03/03/24 Chest X-Ray (Signed) Wicho Beckford - 03/03/24 Brain MRI (Signed) Salma Solorzano - 12/13/23 Telemetry Strips 04/08/22 Abdomen/Pelvis CT (Signed) Arthur Mancini - 04/06/22 Abdomen/Pelvis CT (Signed) Salma Solorzano - 10/03/20 Lumbar Spine MRI (Signed) Anibal Bacon - 04/11/19 Pelvis MRI (Signed) Roberto Jimenez - 09/14/18 Bone Scan Nuclear Medicine (Signed) Maria Elena Navarro - 09/14/18 [place] [address] CT Scan Report Signed Patient: Eliel Ford MR#: [id number] : 1945 Acct:[id number] Age/Sex: 79 / M Date of Service: 03/12/24 Loc: ED Accession Number: [id number] Procedure: CT chest abd pel w con Ordering Provider: Ayaka James D.O. PROCEDURE: CT CHEST ABD PEL W CON INDICATIONS: rib fractures, pain posterior and anterior, fall TECHNIQUE: After the administration of intravenous contrast, 5 mm thick sections acquired from the lung apices to the symphysis. 2.5 mm thick coronal and sagittal reformats were acquired. Additional 7 mm thick coronal maximum intensity projection (MIP) reformats acquired through the lungs. Optional 10-minute delayed imaging may be performed from the kidneys to the bladder. For radiation dose reduction, the following was used: automated exposure control, adjustment of mA and/or kV according to patient size. COMPARISON: CT abdomen pelvis 04/06/2022. FINDINGS: Image quality: Diagnostic. CHEST: Lower Neck: No enlarged lymph nodes. Thyroid: No thyroid nodules which require sonographic evaluation. Axillae: No enlarged lymph nodes. Chest Wall: No subcutaneous gas. Lungs and Pleura: No pulmonary contusions or lacerations. No acute airspace opacities. No pneumothorax or hemothorax. Small left greater than right pleural effusions. Subjacent atelectasis. Mild centrilobular emphysema. Mediastinum: No mediastinal hematomas. Heart size is normal. No pericardial effusion. Thoracic aorta demonstrate normal size and enhancement. Mildly ectatic main pulmonary artery measuring up to 3.5 centimeters in caliber, which can be seen in the setting of pulmonary hypertension. No mediastinal or hilar adenopathy. Esophagus is normal in caliber. No hiatal hernia. ABDOMEN: Liver: No lacerations. Gallbladder: No radiopaque gallstones or wall thickening. Biliary ducts: No biliary dilation. Pancreas: Homogenous enhancement. Spleen: Homogenous enhancement without laceration or hematoma. Adrenal Glands: Symmetric enhancement. Stable nodular thickening of the left adrenal gland since 2021 Kidneys and Ureters: Symmetric enhancement. No hydronephrosis. No solid mass. No complex renal cystic lesion which requires follow up. Stomach and Bowel: Normal colonic caliber, without significant wall thickening. Moderate stool throughout the colon. Scattered colonic diverticulosis without evidence of acute inflammation. Patent anastomosis of the sigmoid colon. Peritoneum: No abnormal intraperitoneal fluid. No free air. Ventral Wall: No hernia. Abdominal Nodes: No retroperitoneal or mesenteric adenopathy by size criteria. Vessels: Aorta and inferior vena cava are normal in size. PELVIS: Pelvic Organs: Unremarkable. Bladder: Normal thickness. Pelvic Nodes: No enlarged lymph nodes. Miscellaneous: No inguinal hernias are seen. Bones: Pelvic ring and hip joints appear intact. Right nondisplaced 6th rib fracture and nondisplaced and segmental and 7th rib fracture. Degenerative changes of the spine without acute vertebral body compression fracture. IMPRESSION: Nondisplaced right 6th rib fracture and nondisplaced and segmental 7th rib fractures. No other evidence of traumatic injury to the chest, abdomen or pelvis. Small left greater than right pleural effusions with subjacent atelectasis. Mildly dilated pulmonary artery measuring up to 3.5 cm, which can be seen in the setting of pulmonary hypertension. Approved by: Shala Serrano M.D.,Ph.D. on 03/12/2024 at 14:37 MDM Narrative Medical decision making narrative: 79-year-old male with twisting ground level fall across the edge of the bathtub early this morning. Patient appears to be hemodynamically stable he is on Plavix. Denies hitting his head or any neck pain no loss of consciousness. Patient was tender in his ribs x-ray shows rib fractures, read shows possible chronic posteriorly but patient was quite tender in that area as well and states he has no known history of rib fractures. Based on location and age plan for CT chest abdomen pelvis although patient is not particularly tender on abdominal exam. Baseline labs were also obtained including CBC, CMP and type and screen. Patient tetanus was updated. Patient has lidocaine patches in place initially defers anything additional for pain. Labs, white count 8 hemoglobin of 13.4 platelets of 385. Sodium 135 electrolytes are otherwise appropriate BUN 24 creatinine 1.13, glucose of 99 LFTs are negative. Chest x-ray shows rib fracture, displaced right 6th and 7th with age indeterminate right posterior 3rd and 4th fractures no pneumothorax or acute cardiopulmonary process. CT chest abdomen and pelvis obtained based on patient's extremity of age as well as lives [place] more [place] location which makes it difficulty to access emergent healthcare. CT shows nondisplaced right 6th rib and nondisplaced in segmental 7th rib fractures. No evidence of traumatic injury otherwise to chest abdomen pelvis small left greater than right pleural effusions with some adjacent atelectasis mild dilated pulmonary artery measuring up to 3.5 cm can be seen in the setting of pulmonary hypertension Patient given incentive spirometer. Reviewed findings with the patient has a single subsegmental 7th rib fracture nondisplaced right rib fracture. Patient is tolerating quite well. He will continue with lidocaine patches but we will give short term course of narcotic pain medication as needed. Discussed findings with patient need for follow up with primary care. Discussed return precautions. Patient has not had any hypoxia or other issues and felt appropriate for discharge home. Discharge Plan Departure Patient Disposition: Home Clinical Impression: Pleural effusion, Dilatation of pulmonic artery Closed rib fracture Qualifiers: Encounter type: initial encounter Rib fracture type: multiple ribs Laterality: right Qualified Code(s): S22.41XA - Multiple fractures of ribs, right side, initial encounter for closed fracture Instructions: DI for Rib Fracture Activity Restrictions/Additional Instructions: Follow up for recheck as needed. Nondisplaced right 6th rib fracture and nondisplaced segmental 7th rib fractures. Small left greater than right pleural effusions with adjacent atelectasis. Your pulmonary early is somewhat dilated 3.5 cm please follow up with your physician and share this information can sometimes indicate pulmonary hypertension Use incentive spirometer hourly while awake for the next 2 weeks. Use Tylenol a 1000 mg every 6 hours as needed for pain. If inadequate for pain you can take 1-2 tablets of tramadol every 6 hours as needed. This medication can make you sleepy do not drive, perform hazardous activities or make any major decisions while taking it. This medication will make you constipated please take a stool softener once to twice daily until stools are soft and regular. Prescription sent to [facility] Please return for new or worsening chest pain or shortness of breath, coughing up blood, lightheadedness or passing out, new abdominal back or flank pain, persistent vomiting or other new or concerning changes. Prescriptions: New tramadol 50 mg tablet 50 mg PO Q6H PRN (Reason: pain) Qty: 14 0RF No Action levetiracetam 500 mg tablet 500 mg PO BID clopidogrel 75 mg tablet 75 mg PO DAILY sertraline 50 mg tablet 50 mg PO DAILY albuterol sulfate 90 mcg/actuation HFA aerosol inhaler 2 puff inhalation Q4-6H PRN (Reason: Congestion) allopurinol 300 mg tablet 300 mg PO DAILY amlodipine 10 mg tablet 10 mg PO DAILY bupropion HCl 300 mg tablet extended release 24 hr 300 mg PO DAILY carvedilol phosphate 40 mg capsule, ER multiphase 24 hr 40 mg PO BID Rx Instructions: must administer with a meal/food propranolol 120 mg capsule,extended release 24 hr 120 mg PO DAILY Referrals: Jerica Munoz MD [Primary Care Provider] - Stand Alone Forms: Patient Portal/API
--- NOTE | 2024-03-12 12:35 | DI.CT.S_ITS ---
PROCEDURE: CT CHEST ABD PEL W CON INDICATIONS: rib fractures, pain posterior and anterior, fall TECHNIQUE: After the administration of intravenous contrast, 5 mm thick sections acquired from the lung apices to the symphysis. 2.5 mm thick coronal and sagittal reformats were acquired. Additional 7 mm thick coronal maximum intensity projection (MIP) reformats acquired through the lungs. Optional 10-minute delayed imaging may be performed from the kidneys to the bladder. For radiation dose reduction, the following was used: automated exposure control, adjustment of mA and/or kV according to patient size. COMPARISON: CT abdomen pelvis 04/06/2022. FINDINGS: Image quality: Diagnostic. CHEST: Lower Neck: No enlarged lymph nodes. Thyroid: No thyroid nodules which require sonographic evaluation. Axillae: No enlarged lymph nodes. Chest Wall: No subcutaneous gas. Lungs and Pleura: No pulmonary contusions or lacerations. No acute airspace opacities. No pneumothorax or hemothorax. Small left greater than right pleural effusions. Subjacent atelectasis. Mild centrilobular emphysema. Mediastinum: No mediastinal hematomas. Heart size is normal. No pericardial effusion. Thoracic aorta demonstrate normal size and enhancement. Mildly ectatic main pulmonary artery measuring up to 3.5 centimeters in caliber, which can be seen in the setting of pulmonary hypertension. No mediastinal or hilar adenopathy. Esophagus is normal in caliber. No hiatal hernia. ABDOMEN: Liver: No lacerations. Gallbladder: No radiopaque gallstones or wall thickening. Biliary ducts: No biliary dilation. Pancreas: Homogenous enhancement. Spleen: Homogenous enhancement without laceration or hematoma. Adrenal Glands: Symmetric enhancement. Stable nodular thickening of the left adrenal gland since 2021 Kidneys and Ureters: Symmetric enhancement. No hydronephrosis. No solid mass. No complex renal cystic lesion which requires follow up. Stomach and Bowel: Normal colonic caliber, without significant wall thickening. Moderate stool throughout the colon. Scattered colonic diverticulosis without evidence of acute inflammation. Patent anastomosis of the sigmoid colon. Peritoneum: No abnormal intraperitoneal fluid. No free air. Ventral Wall: No hernia. Abdominal Nodes: No retroperitoneal or mesenteric adenopathy by size criteria. Vessels: Aorta and inferior vena cava are normal in size. PELVIS: Pelvic Organs: Unremarkable. Bladder: Normal thickness. Pelvic Nodes: No enlarged lymph nodes. Miscellaneous: No inguinal hernias are seen. Bones: Pelvic ring and hip joints appear intact. Right nondisplaced 6th rib fracture and nondisplaced and segmental and 7th rib fracture. Degenerative changes of the spine without acute vertebral body compression fracture. IMPRESSION: Nondisplaced right 6th rib fracture and nondisplaced and segmental 7th rib fractures. No other evidence of traumatic injury to the chest, abdomen or pelvis. Small left greater than right pleural effusions with subjacent atelectasis. Mildly dilated pulmonary artery measuring up to 3.5 cm, which can be seen in the setting of pulmonary hypertension. Approved by: Shala Serrano M.D.,Ph.D. on 03/12/2024 at 14:37
[2024-03-12 13:05] LABS: Add Manual Diff / Slide Review NO; Basophils Absolute Auto 0 /uL (0-100); Basophils Percent Auto 0.5 % (0-2); Eosinophils Absolute Auto 200 /uL (0-450); Eosinophils Percent Auto 1.9 % (2-4); Hematocrit 40.2 % (41-53); Hemoglobin 13.4 g/dL (13.5-17.5); Lymphocytes Absolute Auto 1500 /uL (1100-4500); Lymphocytes Percent Auto 18.6 % (25-40); Mean Corpuscular HGB Conc 33.3 % (30-36); Mean Corpuscular Hemoglobin 31.7 PG (26-34); Mean Corpuscular Volume 95.2 fL (80-100); Monocytes Absolute Auto 1000 /uL (0-900); Monocytes Percent Auto 12.2 % (3-14); Neutrophils Absolute Auto 5300 /uL (1500-7000); Neutrophils Percent Auto 66.8 % (50-75); Platelet Count 385 X10^3/uL (150-400); Red Blood Cell Count 4.22 X10^6/uL (4.5-5.9); Red Cell Distribution Width 13.6 % (11.6-14.8)
[2024-03-12 13:11] LABS: INR 1.3 (0.9-1.3); Prothrombin Time 14.7 SECONDS (9.4-12.5)
[2024-03-12 13:14] LABS: PTT Partial Thromboplastin Tim 35 SECONDS (25.1-36.5)
[2024-03-12 13:16] LABS: Alanine Aminotransferase 38 IU/L (<50); Albumin 3.4 g/dL (3.5-5.0); Alkaline Phosphatase 107 U/L (38-126); Aspartate Aminotransferase 29 IU/L (17-59); BUN Creatinine Ratio 21.2 (6-22); Bilirubin Total 0.5 mg/dL (0.2-1.3); Blood Urea Nitrogen 24 mg/dL (9-20); Calcium 9.1 mg/dL (8.4-10.2); Carbon Dioxide 27 mmol/L (22-32); Chloride 104 mmol/L (98-107); Estimated Glomerular Filt Rate > 60 mL/min (>60); Globulin 3.4 g/dL (1.7-4.1); Glucose 99 mg/dL (80-110); HEMOLYSIS < 15 (0-50); Potassium 4.5 mmol/L (3.4-5.1); Sodium 135 mmol/L (137-145); Total Protein 6.8 g/dL (6.3-8.2)
[2024-03-12] MEDS: TET,DIPH,PERTUSS(ACELL),VAC/PF 0.5 ML SYRINGE IM (13:38)
[2024-03-12] MEDS: KETOROLAC 30 MG/ML VIAL 15 MG IV (14:41)
[2024-03-12] MEDS: TRAMADOL 50 MG TABLET 100 MG PO (15:24)
== END 2024-03-12 15:44 | disposition home or self-care (01) ==
PROVIDERS: Emergency Provider Emergency Medicine; PCP Family Medicine
DX: S22.41XA Multiple fractures of ribs, right side, initial encounter for closed fracture (principal); J90 Pleural effusion, not elsewhere classified; I28.8 Other diseases of pulmonary vessels; W18.00XA Striking against unspecified object with subsequent fall, initial encounter; Z23 Encounter for immunization
CPT/HCPCS: 36415; 71101; 71260; 74177; 80053; 85025; 85610; 85730; 90471; 96374; 99284; 90715; J1885; Q9967